=== PATIENT | female | born 1970 | race Caucasian/White ===

== ENCOUNTER → 2017-10-27 | Day surgery (SDC) | payer MEDICARE, OTHER ==
[2017-10-27 11:42] VITALS: RESP 16; BMI 35.9
[2017-10-27 13:18] VITALS: BP 121/78; PULSE 68; TEMP 98.2
--- NOTE | 2017-10-27 13:21 | USB ---
EXAMINATION TYPE: US biopsy breast add'l VAD RT, US biopsy breast VAD RT DATE OF EXAM: 10/27/2017 CLINICAL HISTORY: R92.8, ABN MAMM. Right-sided bloody nipple discharge. TECHNIQUE: Ultrasound guided core biopsy of right breast. COMPARISON: 09/26/2017 FINDINGS: The procedure of ultrasound guided core biopsy was explained to the patient. Benefits, alternatives, and risks were discussed. An informed consent was then obtained. Discussion with the patient of an additional site of biopsy was made prior to the procedure with informed patient consent. Preprocedural timeout was performed. Site A: The patient was placed in supine positioning for imaging and for the procedure. The overlying skin was prepped and draped in usual sterile fashion. 9 cc of lidocaine without epinephrine was used as anesthetic into the skin and subcutaneous tissue up to the 6 mm and adjacent similar-appearing 6 mm mass in the right breast at the 11:30 position. Under ultrasound guidance, a 12-gauge vacuum assisted biopsy gun device was used to obtain 6 core samples of the 2 adjacent masses. Following this, a coil- shaped biopsy marker was left in lesion. Site B: The patient was placed in supine positioning for imaging and for the procedure. The overlying skin was prepped and draped in usual sterile fashion. 9 cc of lidocaine without epinephrine was used as anesthetic into the skin and subcutaneous tissue up to a 0.6 x 0.3 x 0.6 cm hypoechoic mass in the right breast at the 12:00 position. Under ultrasound guidance, a 12-gauge vacuum assisted biopsy gun device was used to obtain 5 core samples. Following this, a wing-shaped biopsy marker was left in lesion. Postprocedural mammogram in the CC and MLO projections demonstrating appropriate placement of the biopsy markers without migration. The patient tolerated the procedure well without any immediate complication. The patient was kept in the radiology department for short stay after the procedure and then discharged home in stable condition. IMPRESSION: Successful, uncomplicated ultrasound guided two site core biopsy of two adjacent masses at the 11:30 position, possibly intraductal papillomas given their appearance and the provided history of bloody nipple discharge, as well as an additional 6 mm mass at the 12:00 position, possibly cystic, within the right breast. Full pathology results to follow. Pathology Results: Benign A. BREAST, RIGHT, SITE A 11:30, CORE BIOPSY: FIBROCYSTIC CHANGES INCLUDING FIBROSIS AND SMALL CYSTS. B. BREAST, RIGHT, 12:00, CORE BIOPSY: FIBROCYSTIC CHANGES INCLUDING CYSTS, APOCRINE METAPLASIA AND FIBROSIS. Recommendation Follow up ultrasound of the right breast in 6 months. KUMAR
--- NOTE | 2017-10-27 13:50 | MM ---
Reason for exam: additional evaluation requested from abnormal screening. Last mammogram was performed 1 month ago. History: Family history of breast cancer in maternal aunt. Took hormonal contraceptives for 2 years beginning at age 14. MG Diagnostic Mammo RT Wo CAD CC and LM view(s) were taken of the right breast. Prior study comparison: September 26, 2017, bilateral MG 3d diag mammo w/cad WINNIE. April 25, 2014, bilateral MG diagnostic mammo w CAD WINNIE. ASSESSMENT: Post procedure mammogram for marker placement RECOMMENDATION: Ultrasound of the right breast in 6 months. PENDING PATHOLOGY RESULTS.
== END ==
LOC: RADUSWWP 10:54
PROVIDERS: ATTEND Surgery
DX: N60.31 Fibrosclerosis of right breast (principal); R92.8 Other abnormal and inconclusive findings on diagnostic imaging of breast; N60.81 Other benign mammary dysplasias of right breast; Z88.6 Allergy status to analgesic agent; Z91.040 Latex allergy status
CPT/HCPCS: 88305; 77065; 19083; 19084; A4648; J2001

== ENCOUNTER → 2018-03-09 | Outpatient (CLI) | payer MEDICARE, OTHER ==
[2018-03-09 14:37] VITALS: BP 109/69; PULSE 72; RESP 15; TEMP 98.1; BMI 40.6
--- NOTE | 2018-03-09 15:20 | P.HPBAR ---
Bariatric H&P - History & Physicial H&P Date: 03/09/18 History & Physicial: Visit/CC: constant acid reflux, beginning to consider RnY Patient initial contact: Initial weight: 125.191 kg Initial weight in pounds: 276.00 Height: 5 ft 1 in Initial BMI: 52.1 Last weight: 205 Current weight: 97.432 kg Current weight in pounds: 214.80 Current BMI: 40.6 [place] body weight (based on NIH guidelines): 47.627 kg Excess body weight loss: 35.7% The patient is a 47 year-old F who presents for Bariatric Assessment. Patient presents today for sleeve follow-up. She's had issues with GERD. She is actually had increased airway of approximately 10 pounds since her last visit. Patient states that since starting her Nexium she has had improvement of her GERD symptoms. Past Medical History Past Medical History: Diabetes Mellitus, Fibromyalgia, GERD/Reflux, Hyperlipidemia, Rheumatoid Arthritis (RA), Seizure Disorder, Sleep Apnea/CPAP/ BIPAP Additional Past Medical History / Comment(s): hiatal hernia History of Any Multi-Drug Resistant Organisms: None Reported Past Surgical History: Bariatric Surgery, Cholecystectomy, Tonsillectomy, Tubal Ligation Additional Past Surgical History / Comment(s): gastric sleeve, cervical fusion, Past Anesthesia/Blood Transfusion Reactions: Family History of Problems w/ Anesthesia, Motion Sickness Additional Past Anesthesia/Blood Transfusion Reaction / Comm: STATES "HAS A HARD TIME COMING OUT OF ANESTHESIA" Smoking Status: Current some day smoker - Past Family History Mother Family Medical History: No Reported History Additional Family Medical History / Comment(s): DIVERTICULITIS Father Family Medical History: Diabetes Mellitus Surgical - Exam Vital Signs Temp Pulse Resp BP 98.1 F 72 15 109/69 03/09/18 14:26 03/09/18 14:26 03/09/18 14:26 03/09/18 14:26 - General well developed, no distress - Abdomen Abdomen: soft, non tender Bariatric Assessment & Plan Plan: GERD. Patient will continue omeprazole therapy. She'll follow-up in 4 weeks. Bariatric Checklist Checklist: Plan: Checklist: EGD: 1. Hiatal hernia: 2. H. Pylori: HgbA1c: Vitamin D: Smoking: Current some day smoker Primary care physician referral: Michelle Berman (in with Dr. Migdalia Good @ [facility]) Psychiatry clearance: Cardiology clearance: Sleep study: Diet journal: VTE risk score: VTE risk level: Rehab needs at discharge:
== END | disposition home or self-care (01) ==
LOC: BARWHC3 14:08
PROVIDERS: ATTEND Surgery
DX: Z09 Encounter for follow-up examination after completed treatment for conditions other than malignant neoplasm (principal); K21.9 Gastro-esophageal reflux disease without esophagitis; F17.200 Nicotine dependence, unspecified, uncomplicated; E11.9 Type 2 diabetes mellitus without complications; M79.7 Fibromyalgia; E78.5 Hyperlipidemia, unspecified; M06.9 Rheumatoid arthritis, unspecified; G40.909 Epilepsy, unspecified, not intractable, without status epilepticus; G47.30 Sleep apnea, unspecified; Z99.89 Dependence on other enabling machines and devices; Z98.84 Bariatric surgery status; Z90.49 Acquired absence of other specified parts of digestive tract
CPT/HCPCS: 99211

== ENCOUNTER → 2018-04-06 | Outpatient (CLI) | payer MEDICARE, OTHER ==
--- NOTE | 2018-04-06 08:46 | FL ---
EXAMINATION TYPE: FL barium swallow DATE OF EXAM: 04/06/2018 LIMITED UGI-ESOPHAGRAM: CLINICAL HISTORY: Gastric sleeve procedure for years ago with persistent epigastric pain and reflux-l kenny symptoms not responding to medication. TECHNIQUE: Limited esophagram is performed utilizing 10 oz of barium. A total of 71 seconds of fluor oscopic time was utilized during procedure. 24 spot images are saved. COMPARISON: Prior swallow study May 13, 2016. FINDINGS: The patient swallowed contrast without difficulty or delay. Long segment postsurgical hernandez ges cervical spine is redemonstrated. There is underlying esophageal dysmotility with dilatation and abnormal secondary and tertiary contractions. There is good flow at diaphragmatic hiatus into proxim al stomach. There is initial mild delay of proximal anastomosis with then good flow through sleeve an d distal anastomosis into duodenal sweep. Patient remains asymptomatic without increased nausea or vo miting. There is no evidence of contrast extravasation to suggest leak. No reflux was observed. There is more generalized pooling of contrast in distal esophagus upon drinking with poor transit into gas tric sleeve. IMPRESSION: No evidence of leak or significant obstruction status post gastric sleeve surgery. Poor transit of contrast into sleeve is felt on basis of underlying moderate to severe esophageal dysmotil ity.
== END | disposition home or self-care (01) ==
LOC: RADFLMAIN 07:56
PROVIDERS: ATTEND Surgery
DX: K22.4 Dyskinesia of esophagus (principal); Z98.84 Bariatric surgery status
CPT/HCPCS: 74220

== ENCOUNTER 2018-05-14 08:03 | Day surgery (SDC) | payer MEDICARE, OTHER ==
[2018-05-11 11:36] VITALS: BMI 41.0
[~2018-05-14 08:03] MED LIST: LACTATED RINGERS 1,000 ML IV SCH; LIDOCAINE 1% 20 ML VIAL (10MG/ML) FOR IV START INTRADERMA PRN; Pre Op ABX Message 1 EACH MISC MISCELLANE ONE
[2018-05-14 08:28] VITALS: RESP 16; TEMP 98.5
[2018-05-14] MEDS ORDERED: MIDAZOLAM 2 MG/2 ML VIAL ONE (08:43)
[2018-05-14] MEDS ORDERED: fentaNYL (PF) 50 MCG/ML 2 ML AMP ONE (08:43)
[2018-05-14] MEDS ORDERED: PROPOFOL 10 MG/ML 20 ML VIAL IV ONE (08:43)
[2018-05-14] MEDS ORDERED: LIDOCAINE 1% INJ 10MG/ML (20 ML MDV) ONE (08:43)
--- NOTE | 2018-05-14 08:48 | P.GSHP ---
History of Present Illness H&P Date: 05/14/18 Chief Complaint: GERD This a 47-year-old female second with of GERD. Patient had a laparoscopic sleeve gastrectomy approximate 4 years ago. Her recent esophagram shows some dysmotility esophagus with a possible small hiatal hernia. Past Medical History Past Medical History: Diabetes Mellitus, Fibromyalgia, GERD/Reflux, Hyperlipidemia, Osteoarthritis (OA), Seizure Disorder, Sleep Apnea/CPAP/BIPAP Additional Past Medical History / Comment(s): LAST SEIZURE APPROX. 3 YEARS AGO. , HIATAL HERNIA,C-PAP MACHINE., BACK AND LEFT HIP PAIN, NERVE PAIN IN LEGS, CONSTIPATION., HX GASTRIC SLEEVE., STATES PRE-CANCEROUS CELLS IN THROAT FROM GERD., STATES SOME PROBLEMS WALKING "MY LEGS ARE LIKE SPAGHETTI- I WALK LIKE I' M DRUNK" History of Any Multi-Drug Resistant Organisms: None Reported Past Surgical History: Back Surgery, Bariatric Surgery, Cholecystectomy, Tonsillectomy, Tubal Ligation Additional Past Surgical History / Comment(s): gastric sleeve ( ? 2013) ., cervical fusion, Past Anesthesia/Blood Transfusion Reactions: No Reported Reaction, Motion Sickness Additional Past Anesthesia/Blood Transfusion Reaction / Comment(s): . Past Psychological History: Bipolar, Depression Smoking Status: Current every day smoker Past Alcohol Use History: None Reported Additional Past Alcohol Use History / Comment(s): STARTED SMOKING 1983, SMOKES 7 CIG PER DAY Past Drug Use History: None Reported - Past Family History Mother Family Medical History: No Reported History Additional Family Medical History / Comment(s): DIVERTICULITIS Father Family Medical History: Diabetes Mellitus Medications and Allergies Home Medications Medication Instructions Recorded Confirmed Type Gabapentin 800 mg PO QID 09/04/15 05/14/18 History Sertraline [Zoloft] 100 mg PO BID 09/04/15 05/14/18 History traMADol HCL [Tramadol HCl] 50 mg PO Q4HR PRN 04/19/16 05/14/18 History Esomeprazole Magnesium [NexIUM] 40 mg PO DAILY 05/06/16 05/14/18 History Ergocalciferol [Vitamin D2] 50,000 unit PO Q7D 06/11/16 05/14/18 History Sucralfate [Carafate] 1 gm PO TID 06/11/16 05/14/18 History Acetaminophen [Tylenol Extra 500 mg PO DAILY PRN 05/11/18 05/14/18 History Strength] Insulin Degludec [Tresiba 100 unit SQ HS 05/11/18 05/14/18 History Flextouch U-100] Omeprazole [PriLOSEC] 20 mg PO DAILY 05/11/18 05/14/18 History Allergies Allergy/AdvReac Type Severity Reaction Status Date / Time carbamazepine [From Tegretol] Allergy Rash/Hives Verified 05/14/18 08:31 latex Allergy Rash/Hives Verified 05/14/18 08:31 Surgical - Exam Vital Signs Temp Pulse Resp BP Pulse Ox 98.5 F 70 16 107/67 96 05/14/18 08:25 05/14/18 08:25 05/14/18 08:25 05/14/18 08:25 05/14/18 08:25 - General well developed, no distress - Eyes PERRL - ENT normal pinna - Neck no masses - Respiratory normal expansion - Cardiovascular Rhythm: regular - Abdomen Abdomen: soft, non tender Assessment and Plan Assessment: GERD. We'll perform EGD.
--- NOTE | 2018-05-14 08:56 | P.OP ---
Date of Procedure: 05/14/18 Preoperative Diagnosis: GERD Morbid obesity BMI 41 Postoperative Diagnosis: Antral gastritis Small hiatal hernia Esophagitis Gastric sleeve without obstruction Procedure(s) Performed: EGD Anesthesia: MAC Surgeon: Osmany Roy Pathology: other (Antrum, esophagus) Condition: stable Disposition: PACU Description of Procedure: The patient's placed on the endoscopy table in the lateral position. She received IV sedation. The gastroscope placed oropharynx passed in the esophagus and into the stomach. Scope was then placed through the pylorus. First and second portion of the duodenum appeared normal. Scope was then brought back the antrum and this appeared mildly inflamed. A biopsies performed. Scope summer back to the stomach. The patient appears gastric sleeve this without EVIDENCE of obstruction. At the level of GE junction there was a small hiatal hernia. The distal esophagus appeared mildly inflamed a biopsies performed. The proximal esophagus appeared normal. Scope was withdrawn for patient.
[2018-05-14 09:13] LABS: Glucose,Whole Blood 130 mg/dL (75-99)
[2018-05-14 09:17] VITALS: BP 121/82; PULSE 70
== END 2018-05-14 09:32 | disposition home or self-care (01) ==
LOC: ORWHC2ENDO 08:03
PROVIDERS: ATTEND Surgery
DX: K29.50 Unspecified chronic gastritis without bleeding (principal); K44.9 Diaphragmatic hernia without obstruction or gangrene; E11.9 Type 2 diabetes mellitus without complications; K21.0 Gastro-esophageal reflux disease with esophagitis; E66.01 Morbid (severe) obesity due to excess calories; G47.33 Obstructive sleep apnea (adult) (pediatric); M79.7 Fibromyalgia; E78.5 Hyperlipidemia, unspecified; M19.90 Unspecified osteoarthritis, unspecified site; G40.909 Epilepsy, unspecified, not intractable, without status epilepticus; F31.9 Bipolar disorder, unspecified; F17.210 Nicotine dependence, cigarettes, uncomplicated; Z79.4 Long term (current) use of insulin; Z79.899 Other long term (current) drug therapy; Z88.8 Allergy status to other drugs, medicaments and biological substances; Z90.3 Acquired absence of stomach [part of]; Z99.89 Dependence on other enabling machines and devices; Z90.49 Acquired absence of other specified parts of digestive tract; Z68.41 Body mass index [BMI] 40.0-44.9, adult; Z91.040 Latex allergy status
CPT/HCPCS: 88305; 43239; J2250; J2001; J3010; J2704

== ENCOUNTER → 2018-09-18 | Outpatient (CLI) | payer MEDICARE, OTHER ==
--- NOTE | 2018-09-18 15:13 | CT ---
EXAMINATION TYPE: CT abdomen pelvis wo con DATE OF EXAM: 09/18/2018 HISTORY: GERD, Ventral hernia CT DLP: 1158.6 mGycm. Automated Exposure Control for Dose Reduction was Utilized. TECHNIQUE: CT scan of the abdomen and pelvis is performed with oral but without IV contrast. COMPARISON: NONE FINDINGS: Within the limitations of a non-contrast study, the following observations are made. LUNG BASES: No significant abnormality is appreciated. LIVER/GB: Cholecystectomy clips are present. PANCREAS: No significant abnormality is seen. SPLEEN: No significant abnormality is seen. ADRENALS: No significant abnormality is seen. KIDNEYS: No renal calculi or hydronephrosis is seen bilaterally. BOWEL: Surgical changes from hiatal hernia repair surgery are seen with sutures near diaphragmatic hi atus. There is recurrent small hiatal hernia noted above this. Oral contrast extends into cecum. Ther e is no suspicious small or large bowel dilatation GENITAL ORGANS: Heterogeneous anteverted uterus is seen with lobulated peripheral margin suggesting s ubserosal fibroids.. Both ovaries are seen and not suspiciously enlarged. Scattered pelvic phlebolith s are seen. LYMPH NODES: No greater than 1cm abdominal or pelvic lymph nodes are appreciated. OSSEOUS STRUCTURES: No significant abnormality is seen. OTHER: Tiny fat-containing umbilical hernia. Additional focal right ventral wall hernia above the umb ilicus axial image 35 with narrow neck containing fat may be on pass of prior incision port for lapar oscopic surgery as there is adjacent scar tissue felt present. IMPRESSION: Small recurrent hiatal hernia. Tiny fat-containing umbilical hernia. Small fat-containing near neck ventral wall hernia likely at site of prior laparoscopic port.
== END | disposition home or self-care (01) ==
LOC: RADCTMAIN 13:12
PROVIDERS: ATTEND Surgery Plastic and Reconstructive Surgery
DX: K43.9 Ventral hernia without obstruction or gangrene (principal); K44.9 Diaphragmatic hernia without obstruction or gangrene; K21.9 Gastro-esophageal reflux disease without esophagitis; Z91.040 Latex allergy status; Z88.8 Allergy status to other drugs, medicaments and biological substances
CPT/HCPCS: 74176

== ENCOUNTER 2018-10-07 07:50 | Day surgery (SDC) | payer MEDICARE, OTHER ==
[2018-10-06 09:15] VITALS: BMI 42.2
[~2018-10-07 07:50] MED LIST changes: +DEXAMETHASONE SOD PHOSPHATE 10 MG/ML 1 ML VIAL IV ONE; +HYDROmorphone 0.5 MG/0.5 ML SYRINGE IVP PRN; +ONDANSETRON 4 MG/2 ML VIAL IVP ONE; -Pre Op ABX Message 1 EACH MISC MISCELLANE ONE; +SCOPOLAMINE 1.5MG/72HR PATCH TRANSDERM ONE
[2018-10-07 08:17] VITALS: TEMP 97.8
[2018-10-07 08:28] LABS: Glucose,Whole Blood 93 mg/dL (75-99)
[2018-10-07] MEDS ORDERED: LACTATED RINGERS 1,000 ML IV ONE (08:32)
[2018-10-07] MEDS ORDERED: PROPOFOL 10 MG/ML 20 ML VIAL IV ONE (08:40)
[2018-10-07] MEDS ORDERED: LIDOCAINE 1% INJ 10MG/ML (20 ML MDV) ONE (08:40)
--- NOTE | 2018-10-07 08:50 | P.PCN ---
Date of Procedure: 10/07/18 Description of Procedure: PREOPERATIVE DIAGNOSIS: Status post sleeve gastrectomy. Gastroesophageal reflux disease. Epigastric abdominal pain. POSTOPERATIVE DIAGNOSIS: Status post sleeve gastrectomy. Gastroesophageal reflux disease. Epigastric abdominal pain. Erosive esophagitis, chronic. Diaphragmatic hiatal hernia without obstruction. Chronic superficial gastritis. OPERATION: Esophagogastroduodenoscopy with cold forceps biopsies along the antrum. SURGEON: Maira Rayo MD ANESTHESIA: MAC. INDICATIONS: The patient is a 48-year-old female who presents with a history of sleeve gastrectomy with abdominal pain. Benefits and risks of the procedure were described. Informed consent was obtained. DESCRIPTION: The patient was brought into the endoscopy suite and laid in the left lateral decubitus position. An Olympus gastroscope was passed along the posterior oropharynx down to the distal esophagus where the squamocolumnar junction was at 34 centimeters from the incisors remarkable for chronic erosive esophagitis, LA grade C without ulceration. The stomach was entered where she had a 6-cm hiatal hernia with a diaphragmatic hiatus found at 40 cm. Moderate distortion of the gastric sleeve gastrectomy and angularis incisura with adequate reservoir was found. Chronic gastritis albeit mild was found along the antrum with cold biopsies obtained. The first through third portion of the duodenum was examined and unremarkable. The stomach was desufflated. The patient tolerated the procedure well. FINDINGS: No acute ulceration found along her sleeve. Corkscrewing of sleeve gastrectomy. Squamocolumnar junction at 34 cm from the incisors. Diaphragmatic hiatus at 40 cm. Hiatal hernia 6 cm, fixed. LA grade C erosive esophagitis. No active duodenitis. Severe gastroesophageal reflux disease Findings of moderate gastritis. Moderate distortion of gastric sleeve and angularis incisura with adequate reservoir. Hill grade unobtainable secondary to sleeve gastrectomy RECOMMENDATIONS: Upper endoscopy as needed. May benefit from antireflux operation. Recommend revision to gastric bypass was severe reflux disease.
--- NOTE | 2018-10-07 08:51 | P.GSHP ---
History of Present Illness H&P Date: 10/07/18 CHIEF COMPLAINT: GERD HISTORY OF PRESENT ILLNESS: The patient is a 48-year-old female who presents reports gastroesophageal reflux disease. Upper endoscopy was offered for further evaluation and management. PAST MEDICAL HISTORY: Please see list. PAST SURGICAL HISTORY: Please see list. MEDICATIONS: Please see list. ALLERGIES: Please see list. SOCIAL HISTORY: No illicit drug use FAMILY HISTORY: No reports of Crohn disease or ulcerative colitis. REVIEW OF ORGAN SYSTEMS: CONSTITUTIONAL: No reports of fevers or chills. GI: Denies any blood in stools or constipation. PHYSICAL EXAM: VITAL SIGNS: Stable GENERAL: Well-developed and pleasant in no acute distress. HEENT: No scleral icterus. Extraocular movements grossly intact. Moist buccal mucosa. NECK: Supple without lymphadenopathy. CHEST: Unlabored respirations. Equal bilateral excursions. CARDIOVASCULAR: Regular rate and rhythm. Distal 2+ pulses. ABDOMEN: Soft, nondistended. MUSCULOSKELETAL: No clubbing, cyanosis, or edema. ASSESSMENT: 1. Gastroesophageal reflux disease PLAN: 1. Recommend proceeding with an upper endoscopy Past Medical History Past Medical History: Diabetes Mellitus, Fibromyalgia, GERD/Reflux, Hyperlipidemia, Osteoarthritis (OA), Seizure Disorder, Sleep Apnea/CPAP/BIPAP Additional Past Medical History / Comment(s): LAST SEIZURE APPROX. 3 YEARS AGO. , HIATAL HERNIA,C-PAP MACHINE., BACK AND LEFT HIP PAIN, NERVE PAIN IN LEGS, CONSTIPATION., STATES PRE-CANCEROUS CELLS IN THROAT FROM GERD., STATES SOME PROBLEMS WALKING "MY LEGS ARE LIKE SPAGHETTI- I WALK LIKE I'M DRUNK" History of Any Multi-Drug Resistant Organisms: None Reported Past Surgical History: Back Surgery, Bariatric Surgery, Cholecystectomy, Tonsillectomy, Tubal Ligation Additional Past Surgical History / Comment(s): gastric sleeve ,cervical fusion Past Anesthesia/Blood Transfusion Reactions: No Reported Reaction, Motion Sickness Additional Past Anesthesia/Blood Transfusion Reaction / Comment(s): . Smoking Status: Current every day smoker - Past Family History Mother Family Medical History: No Reported History Additional Family Medical History / Comment(s): DIVERTICULITIS Father Family Medical History: Diabetes Mellitus Medications and Allergies Home Medications Medication Instructions Recorded Confirmed Type Gabapentin 800 mg PO QID 09/04/15 10/07/18 History Sertraline [Zoloft] 100 mg PO BID 09/04/15 10/07/18 History traMADol HCL [Tramadol HCl] 50 mg PO Q4HR PRN 04/19/16 10/07/18 History Esomeprazole Magnesium [NexIUM] 40 mg PO DAILY 05/06/16 10/07/18 History Ergocalciferol [Vitamin D2] 50,000 unit PO Q7D 06/11/16 10/07/18 History Sucralfate [Carafate] 1 gm PO TID 06/11/16 10/07/18 History Acetaminophen [Tylenol Extra 500 mg PO DAILY PRN 05/11/18 10/07/18 History Strength] Insulin Degludec [Tresiba 100 unit SQ HS 05/11/18 10/07/18 History Flextouch U-100] Omeprazole [PriLOSEC] 20 mg PO DAILY 05/11/18 10/07/18 History Allergies Allergy/AdvReac Type Severity Reaction Status Date / Time carbamazepine [From Tegretol] Allergy Rash/Hives Verified 10/06/18 09:06 latex Allergy Rash/Hives Verified 10/06/18 09:06 Surgical - Exam Vital Signs Temp Pulse Resp BP Pulse Ox 97.8 F 71 20 118/72 96 10/07/18 08:15 10/07/18 08:15 10/07/18 08:15 10/07/18 08:15 10/07/18 08:15
[2018-10-07 09:16] VITALS: BP 132/77; PULSE 56; RESP 18
== END 2018-10-07 09:38 | disposition home or self-care (01) ==
LOC: ORWHC2ENDO 07:50
PROVIDERS: ATTEND Surgery Plastic and Reconstructive Surgery
DX: K29.30 Chronic superficial gastritis without bleeding (principal); K21.9 Gastro-esophageal reflux disease without esophagitis; E11.9 Type 2 diabetes mellitus without complications; M79.7 Fibromyalgia; E78.5 Hyperlipidemia, unspecified; M19.90 Unspecified osteoarthritis, unspecified site; G40.909 Epilepsy, unspecified, not intractable, without status epilepticus; F17.200 Nicotine dependence, unspecified, uncomplicated; K22.10 Ulcer of esophagus without bleeding; K44.9 Diaphragmatic hernia without obstruction or gangrene; F31.9 Bipolar disorder, unspecified; G47.33 Obstructive sleep apnea (adult) (pediatric); Z99.89 Dependence on other enabling machines and devices; Z98.84 Bariatric surgery status; Z79.899 Other long term (current) drug therapy; Z79.4 Long term (current) use of insulin; Z88.8 Allergy status to other drugs, medicaments and biological substances; Z91.040 Latex allergy status
CPT/HCPCS: 88305; 43239; J2001; J2704

== ENCOUNTER → 2019-02-03 | Outpatient (CLI) | payer MEDICARE, OTHER ==
[2019-02-03 15:27] LABS: HGB 13.3 gm/dL (11.4-16.0); MCH 28.4 pg (25.0-35.0); MCHC 32.5 g/dL (31.0-37.0); MCV 87.4 fL (80.0-100.0); Mean Platelet Volume 7.2; Platelet Count 387 k/uL (150-450); RBC 4.69 m/uL (3.80-5.40); RDW 14.9 % (11.5-15.5); WBC 16.4 k/uL (3.8-10.6)
[2019-02-03 15:38] LABS: Blood Urea Nitrogen 19 mg/dL (7-17); Potassium 4.7 mmol/L (3.5-5.1)
== END ==
LOC: LABPAT 14:48
PROVIDERS: ATTEND Surgery Plastic and Reconstructive Surgery
DX: Z01.812 Encounter for preprocedural laboratory examination (principal); K44.9 Diaphragmatic hernia without obstruction or gangrene; Z79.899 Other long term (current) drug therapy; Z79.4 Long term (current) use of insulin
CPT/HCPCS: 36415; 82565; 84132; 84520; 85027

== ENCOUNTER → 2019-03-19 | Outpatient (CLI) | payer MEDICARE, OTHER ==
[2019-03-19 15:23] LABS: Blood Urea Nitrogen 13 mg/dL (7-17); Potassium 3.9 mmol/L (3.5-5.1)
[2019-03-19 15:26] LABS: HCT 38.8 % (34.0-46.0); HGB 12.7 gm/dL (11.4-16.0); MCH 28.8 pg (25.0-35.0); MCHC 32.7 g/dL (31.0-37.0); Platelet Count 369 k/uL (150-450); RBC 4.41 m/uL (3.80-5.40); WBC 10.6 k/uL (3.8-10.6)
== END | disposition home or self-care (01) ==
LOC: LABPAT 14:50
PROVIDERS: ATTEND Surgery Plastic and Reconstructive Surgery
DX: Z01.812 Encounter for preprocedural laboratory examination (principal); K44.9 Diaphragmatic hernia without obstruction or gangrene; Z79.4 Long term (current) use of insulin; Z79.899 Other long term (current) drug therapy
CPT/HCPCS: 36415; 82565; 84132; 84520; 85027

== ENCOUNTER 2019-03-25 17:49 | Day surgery (SDC) | payer MEDICARE, OTHER ==
[2019-03-22 10:25] VITALS: BMI 38.0
--- NOTE | 2019-03-25 07:14 | P.GSHP ---
History of Present Illness H&P Date: 03/25/19 CHIEF COMPLAINT: Paraesophageal hiatal hernia with gastroesophageal reflux disease. HISTORY OF PRESENT ILLNESS: The patient is a 48-year-old female who presents with paraesophageal hiatal hernia. She has completed an esophageal manometry including upper endoscopy workup. Now she presents for surgical intervention. PAST MEDICAL HISTORY: Please see list. PAST SURGICAL HISTORY: Please see list. MEDICATIONS: Please see list. ALLERGIES: Please see list. SOCIAL HISTORY: No illicit drug use FAMILY HISTORY: No reports of Crohn disease or ulcerative colitis. REVIEW OF ORGAN SYSTEMS: CONSTITUTIONAL: No reports of fevers or chills. GI: Denies any blood in stools or constipation. PHYSICAL EXAM: VITAL SIGNS: Stable GENERAL: Well-developed pleasant and in no acute distress. HEENT: No scleral icterus. Extraocular movements grossly intact. Moist buccal mucosa. NECK: Supple without lymphadenopathy. CHEST: Unlabored respirations. Equal bilateral excursions. CARDIOVASCULAR: Regular rate and rhythm. Distal 2+ pulses. ABDOMEN: Soft, nondistended. No peritoneal signs. MUSCULOSKELETAL: No clubbing, cyanosis, or edema. SKIN: Well-perfused. Good skin turgor. MANOMETRY: Shows no evidence of achalasia or scleroderma. ASSESSMENT: 1. Diaphragmatic paraesophageal hiatal hernia with severe gastroesophageal reflux disease. PLAN: 1. Recommend proceeding with a robotic paraesophageal hiatal hernia with possible mesh. 2. Benefits and risks of surgical intervention was discussed including possibility of open technique. 3. Inpatient hospitalization recommended of 2 nights 4. DVT prophylaxis. 5. Antibiotic prophylaxis. 6. She has also completed a very low caloric high-protein diet to address underlying hepatomegaly. Past Medical History Past Medical History: Diabetes Mellitus, Fibromyalgia, GERD/Reflux, Hyperlipidemia, Osteoarthritis (OA), Seizure Disorder, Sleep Apnea/CPAP/BIPAP Additional Past Medical History / Comment(s): LAST SEIZURE OVER 3 YEARS AGO., HIATAL HERNIA, DDD ,NO LONGER USING C-PAP MACHINE., BACK AND LEFT HIP PAIN, NERVE PAIN IN LEGS, CONSTIPATION., HX GASTRIC SLEEVE., STATES PRE-CANCEROUS CELLS IN THROAT FROM GERD., STATES PROBLEMS WALKING "MY LEGS ARE LIKE SPAGHETTI- I WALK LIKE I'M DRUNK",maru legs neuropathy. History of Any Multi-Drug Resistant Organisms: None Reported Past Surgical History: Back Surgery, Bariatric Surgery, Cholecystectomy, Tonsillectomy, Tubal Ligation Additional Past Surgical History / Comment(s): gastric sleeve ( ? 2013 DR CHEN) ., cervical fusion, Past Anesthesia/Blood Transfusion Reactions: No Reported Reaction, Motion Sickness Additional Past Anesthesia/Blood Transfusion Reaction / Comment(s): has a hard t ermelinda sometimes waking up with anesthesia, no hx blood transfusion Past Psychological History: Bipolar, Depression Smoking Status: Current every day smoker Past Alcohol Use History: None Reported Additional Past Alcohol Use History / Comment(s): STARTED SMOKING 1983, SMOKES 6 CIG PER DAY (PAST HX OF 1PPD) Past Drug Use History: None Reported Additional Drug Use History / Comment(s): . - Past Family History Mother Family Medical History: No Reported History Additional Family Medical History / Comment(s): DIVERTICULITIS Father Family Medical History: Diabetes Mellitus Medications and Allergies Home Medications Medication Instructions Recorded Confirmed Type Gabapentin 800 mg PO QID PRN 09/04/15 03/22/19 History Sertraline [Zoloft] 100 mg PO BID 09/04/15 03/22/19 History Esomeprazole Magnesium [NexIUM] 40 mg PO Q2D 05/06/16 03/22/19 History Ergocalciferol [Vitamin D2] 50,000 unit PO Q7D 06/11/16 03/22/19 History Insulin Degludec [Tresiba 80 unit SQ HS 05/11/18 03/22/19 History Flextouch U-100] Omeprazole 40 mg PO Q2D 01/29/19 03/22/19 History traMADol HCL [Ultram] 50 mg PO Q6HR PRN 03/22/19 03/22/19 History Allergies Allergy/AdvReac Type Severity Reaction Status Date / Time carbamazepine [From Tegretol] Allergy Rash/Hives Verified 03/22/19 09:57 latex Allergy Rash/Hives Verified 03/22/19 09:57
[2019-03-25 12:53] LABS: Glucose,Whole Blood 85 mg/dL (75-99)
[2019-03-25] MEDS: LACTATED RINGERS 1,000 ML IV SCH ×2 (13:00→14:08)
[2019-03-25] MEDS: DEXAMETHASONE SOD PHOSPHATE 10 MG/ML 1 ML VIAL IV ONE ×2 (13:08→19:01)
[2019-03-25] MEDS: ONDANSETRON 4 MG/2 ML VIAL IVP ONE ×2 (13:08→19:40)
[2019-03-25] MEDS: PANTOPRAZOLE 40 MG/10 ML VIAL IV STA ×2 (13:11→19:05)
[2019-03-25] MEDS: SCOPOLAMINE 1.5MG/72HR PATCH TRANSDERM ONE ×2 (13:15→19:04)
[2019-03-25] MEDS: CHLORHEXIDINE GLUCONATE 15 ML CUP MUCOUS MEM ONE ×2 (14:07→19:04)
[~2019-03-25 17:49] MED LIST changes: +BUPIVACAIN-EPI 0.25%-1:200,000 30 ML VIAL SQ ONE; -DEXAMETHASONE SOD PHOSPHATE 10 MG/ML 1 ML VIAL IV ONE; +ENOXAPARIN 40 MG/0.4 ML SYRINGE SQ STA; +GLYCOPYRROLATE 0.2 MG/ML 2 ML VIAL ONE; +HEPARIN SODIUM,PORCINE 5,000 UNIT/ML 1 ML VIAL SQ ONE; +HYDROcodone/APAP 15 ML SOLUTION PO PRN; +HYDROmorphone (PF) 1 MG/ML ONE; +KETOROLAC 30 MG/ML 1 ML VIAL ONE; +LACTATED RINGERS 1,000 ML IV ONE; -LACTATED RINGERS 1,000 ML IV SCH; +LIDOCAINE 1% INJ 10MG/ML (20 ML MDV) ONE; +MIDAZOLAM 2 MG/2 ML VIAL IV PRN; +MIDAZOLAM 2 MG/2 ML VIAL ONE; +NALOXONE 0.4 MG/ML 1 ML VIAL IV PRN; +NEOSTIGMINE 1 MG/ML 10 ML VIAL ONE; -ONDANSETRON 4 MG/2 ML VIAL IVP ONE; +PHENYLEPHRINE-0.9% NACL SYG 1 MG/10 ML SYRINGE ONE; +PROPOFOL 10 MG/ML 20 ML VIAL IV ONE; +ROCURONIUM BROMIDE 10 MG/ML 10 ML VIAL IV ONE; -SCOPOLAMINE 1.5MG/72HR PATCH TRANSDERM ONE; +SUCCINYLCHOLINE CHLORIDE 100 MG/5 ML SYR IV ONE; +ceFAZolin IN SWFI 2 GM/20 ML SYRINGE IVP ONE; +diphenhydrAMINE 50 MG/ML 1 ML VIAL IVP PRN; +fentaNYL (PF) 50 MCG/ML 2 ML AMP ONE
[2019-03-25 17:57] LABS: Glucose,Whole Blood 162 mg/dL (75-99)
[2019-03-25] MEDS ORDERED: INSULIN ASPART (NovoLOG) 100 UNIT/ML VIAL SQ ONE (18:02)
[2019-03-25] MEDS ORDERED: ONDANSETRON 4 MG/2 ML VIAL IVP ONE (18:07)
--- NOTE | 2019-03-25 18:08 | P.OP ---
Date of Procedure: 03/25/19 Description of Procedure: SURGEON: ISELA ASHTON MD PREOPERATIVE DIAGNOSES: 1. Gastroesophageal reflux disease, severe with erosive esophagitis 2. Paraesophageal hiatal hernia, midline. 3. Morbid obesity due to excess calories, BMI of 38.1 4. History of sleeve gastrectomy 5. Epigastric abdominal pain. 6. Diabetes type 2, insulin-dependent 7. Fibromyalgia 8. Bipolar disorder 9. Diabetic neuropathy 10. Anxiety disorder generalized 11. Depressive disorder 12. Seizure disorder. POSTOPERATIVE DIAGNOSES: 1. Gastroesophageal reflux disease, severe with erosive esophagitis 2. Paraesophageal hiatal hernia, midline. 3. Morbid obesity due to excess calories, BMI of 38.1 4. History of sleeve gastrectomy 5. Epigastric abdominal pain. 6. Diabetes type 2, insulin-dependent 7. Fibromyalgia 8. Bipolar disorder 9. Diabetic neuropathy 10. Anxiety disorder generalized 11. Depressive disorder 12. Seizure disorder. 13. Complications from gastrectomy 14. Hepatomegaly OPERATION: 1. Robotic-assisted da Pricila Xi laparoscopic reduction and repair of incarcerated paraesophageal hiatal hernia, 6 x 4 cm, with [place] Biopatch A 8 x 8 cm. 2. Robotic-assisted da Pricila Xi laparoscopic extensive lysis of adhesions over 1 hour 3. Intraoperative esophagogastroscopy ANESTHESIA: General with local anesthetic. ESTIMATED BLOOD LOSS: 20 mL Pathology: None COMPLICATIONS: None. FINDINGS: 1. Hepatomegaly 2. Dense adhesions of anterior surface entire sleeve gastrectomy to left lobe of liver 3. Incarcerated upper pole of the stomach within the mediastinum with moderate dissection performed with resection of mediastinal hernia sac, type III paraesophageal hiatal hernia 4. 6 cm paraesophageal incarcerated diaphragmatic hiatal hernia with moderate dissection into the mediastinum. 5. [place] Biopatch A onlay mesh placed. 6. Intra-abdominal esophageal length over 2 cm obtained 7. Severe intra-abdominal peritoneal adhesions of greater omentum and lesser omentum to abdominal wall including sleeve gastrectomy adherent to the undersurface of the liver adding additional complexity to the case over 1 hour 30 minutes 8. Severe scarring of sleeve gastrectomy with distortion and stenosis at angularis incisura creating functional obstruction INDICATIONS: The patient is a 48-year-old female who presents with epigastric abdominal pain, history of sleeve gastrectomy and gastroesophageal reflux recalcitrant to medical therapy with a symptomatic diaphragmatic hiatal hernia. Preoperative workup including upper endoscopy demonstrated hiatal hernia with erosive esophagitis. Given the severity of her symptoms, she had elected for surgical intervention. Benefits and risks including bleeding, infection, recurrence, dysphagia, injury to the lung, need for further surgery was described at length. Informed consent was obtained. DESCRIPTION: The patient was brought into the operating room and placed in supine position. Preoperatively she had received Lovenox subcutaneously for DVT prophylaxis. After general induction, the abdomen was prepped and draped in standard sterile fashion. The patient had previously voided prior to coming to the operating room. Ioban draping was placed along the abdomen. A timeout protocol was confirmed with the surgical team, for which the patient's name, procedure to be performed including DVT prophylaxis with bilateral SCDs, and preoperative antibiotics were also confirmed. A robotic da Pricila Xi system was prepped and primed. At 15 cm from the xiphoid to just below the umbilicus, proposed port sites were marked with indelible marker along the left axillary line, left mid-clavicular line with each ports were marked 10 cm from each other. A 5 mm 0 degrees laparoscopic trocar entry was performed along the left upper quadrant. The abdomen was insufflated to 15 mmHg pressure was tolerated well. Diagnostic laparoscopy demonstrated no injury to bowel, viscera. Severe peritoneal adhesions completely obscuring the sleeve gastrectomy was found along the epigastrium and midline. Next, one 8 mm robotic port was placed along the right upper abdomen. An 8-mm port was were placed along the left lateral abdominal wall. The camera 8-mm port was maintained along the epigastrium. Another 12 mm port was placed along the left upper abdominal wall after exchanging the 5 mm port. Please note that the ports were placed at least 20 cm away from the target anatomy. Care was taken to check that each robotic arm were safely away from collision with the bed or the patient. A medium sized Cindy liver tractor was placed initially at the subxiphoid however repositioned 4 cm distally to allow for placement underneath the liver after mobilization of the stomach. The patient was repositioned in reverse Trendelenburg position at 16-degrees after lowering the bed. The robot was docked above the left side of the patient. Using a grasper for arm 3, a grasper for arm 1, including vessel sealer for arm 2, the robotic system was docked and primed as described. Instruments were interchanged by the hearing and speech assistant. I had sat at the console. Initial attention was brought to the severe peritoneal adhesions involving the greater omentum to the anterior abdominal wall of the epigastrium including midline and right including left upper quadrant. Using combination blunt dissection including vessel sealer for sharp dissection, extensive lysis of adhesions over 1 hour was performed. The sleeve was completely adherent to the undersurface of the left lobe of the liver requiring meticulous dissection using a vessel sealer without any gastrotomy. No bleeding had occurred along the liver dissection away from the sleeve gastrectomy. Dissection was carried to the hiatus circumferentially using vessel sealer including blunt dissection. The remnant gastrohepatic ligament was cleaved using a vessel sealer. Next, the phrenoesophageal ligament was mobilized and the distal esophagus was mobilized circumferentially. An incarcerated hernia sac was found into the mediastinum. As a result, deep dissection well into the mediastinum was needed to free the proximal sleeve gastrectomy including distal esophagus consistent with a type III hiatal hernia. The left and right crura was identified. Significant mobilization of the distal to mid esophagus into the mediastinum was performed. Circumferentially, the hernia sac was excised and brought into the abdominal cavity. Care was taken to avoid any gastrotomy to the incarcerated upper pole of the stomach. The measured defect was measured with a ruler consistent with 6 cm axial length and 4 cm in width. After extensive dissection, the distal eso phagus at least 2 cm was brought into the abdominal cavity. Once the hiatus and crura was dissected, 2-0 VLOC suture was placed as a running suture to re-approximate the diaphragmatic hiatus posteriorly. To buttress the repair, a [place] Biopatch A was prepared along the back table and cut in a gamboa-hole fashion as to reinforce the repair as an underlay. The mesh was resized posteriorly placed along the crural repair and tagged using 2-0 VLOC. I went to the head of the bed to perform intraoperative esophagogastroduodenoscopy. An Olympus gastroscope was passed through posterior oropharynx, where the squamocolumnar junction was confirmed distal to the hiatus. The stomach was entered. A confirmed pre-existing gastric stenosis was found at the angularis incisura. The stomach had been desufflated. No evidence of leaks were found or mucosal defects of the esophagus or stomach. This concluded the endoscopic portion of the case. The robot was undocked from the patient. I re-scrubbed into the case. All instruments and pneumoperitoneum were evacuated from the abdominal cavity. The incisions were cleansed with dilute hydrogen peroxide with saline solution. Incisions were reapproximated using 4-0 Monocryl in an interrupted subcuticular fashion. The 12-mm port site fascial defect was less than 8 mm in size. Exofin was applied to the skin. Local anesthetic was infiltrated in all wounds for postop analgesia. Multiple intra-abdominal films were obtained. At the end of the procedure, needle, sponge, and instrument count was verified correct by the surgical clinical reviewer. The patient had tolerated the procedure well and was taken to the postanesthesia unit in stable condition. Intraoperative films were reviewed with the patient's family who were pleased with the level of care. COMPLEXITY: Increased complexity of the case secondary to severe peritoneal adhesions from prior history of sleeve gastrectomy. Meticulous dissection of sleeve gastrectomy from liver bed also performed. Extensive lysis of adhesions over 1 hour performed including separate dissection into mediastinum to address moderate incarcerated paraesophageal hiatal hernia, type III
[2019-03-25] MEDS: ONDANSETRON 4 MG/2 ML VIAL IVP SCH (19:06)
[2019-03-25] MEDS: ALBUTEROL NEBULIZED 2.5 MG/3 ML INHALATION SCH (19:27)
[2019-03-25] MEDS: HYDROmorphone 1 MG/ML 1 ML SYRINGE IVP PRN (20:22)
[2019-03-25] MEDS: HYOSCYAMINE ORAL DROPS 1.875 MG/15 ML BOTTLE PO SCH (20:24)
[2019-03-25] MEDS: SIMETHICONE 40 MG/0.6 ML DROPS 2,000 MG/30 ML BOTTLE PO SCH (20:25)
[2019-03-25 20:54] LABS: Glucose,Whole Blood 166 mg/dL (75-99)
[2019-03-25] MEDS: INSULIN ASPART (NovoLOG) 100 UNIT/ML VIAL SQ SCH (20:56)
[2019-03-25] MEDS: 0.9% NACL WITH KCL 20 MEQ/L 1,000 ML IV SCH (23:59)
[2019-03-26] MEDS: ceFAZolin IN SWFI 2 GM/20 ML SYRINGE IVP SCH ×2 (00:05→09:06)
[2019-03-26] MEDS: SIMETHICONE 40 MG/0.6 ML DROPS 2,000 MG/30 ML BOTTLE PO SCH ×3 (00:05→12:51)
[2019-03-26] MEDS: ONDANSETRON 4 MG/2 ML VIAL IVP SCH ×3 (00:05→12:42)
[2019-03-26] MEDS: HYOSCYAMINE ORAL DROPS 1.875 MG/15 ML BOTTLE PO SCH ×3 (00:05→12:50)
[2019-03-26] MEDS: HYDROmorphone 1 MG/ML 1 ML SYRINGE IVP PRN ×2 (00:05→06:54)
[2019-03-26] MEDS: 0.9% NACL WITH KCL 20 MEQ/L 1,000 ML IV SCH (00:06)
[2019-03-26] MEDS: LACTATED RINGERS 1,000 ML IV SCH (00:06)
[2019-03-26] MEDS: ALBUTEROL NEBULIZED 2.5 MG/3 ML INHALATION SCH ×2 (05:44→10:39)
[2019-03-26 06:33] LABS: Glucose,Whole Blood 115 mg/dL (75-99)
[2019-03-26] MEDS: INSULIN ASPART (NovoLOG) 100 UNIT/ML VIAL SQ SCH ×2 (06:49→12:52)
[2019-03-26] MEDS ORDERED: 1: MVI, ADULT NO.4 WITH VIT K 10 ML, THIAMINE 100 MG, FOLIC ACID 1 MG, POTASSIUM CHLORID IV SCH ×6 (08:00)
[2019-03-26] MEDS ORDERED: ENOXAPARIN 40 MG/0.4 ML SYRINGE SQ SCH (09:00)
[2019-03-26] MEDS ORDERED: PANTOPRAZOLE 40 MG/10 ML VIAL IV SCH (09:00)
--- NOTE | 2019-03-26 09:28 | FL ---
EXAMINATION TYPE: FL UGI DATE OF EXAM: 03/26/2019 COMPARISON: Previous exam 04/06/2018 HISTORY: Postop hiatal hernia repair TECHNIQUE: A single/double contrast UGI study is performed. 2 minutes fluoroscopy time, 10 intraoper ative images obtained. FINDINGS: Patient was given 80 cc Isovue 370 to drink. There is hesitancy of contrast material across the surgical bed with some reflux from the level of the distal esophagus into the thoracic esophagus . There is a pouch present at the level of the gastroesophageal junction which shows contrast collect ion as on prior exam, probable postoperative appearance. Some delay of transit across the gastric sle puma region. Persistent contrast in the distal esophagus is noted with probable tertiary esophageal co ntractions. No extravasation is identified. Left lower lobe atelectatic changes are suspected in the retrocardiac region. Surgical clips present right upper quadrant. IMPRESSION: Postoperative appearance as described with hesitancy of contrast material to flow across the surgical bed. No evident extravasation. Left lower lobe atelectasis.
--- NOTE | 2019-03-26 09:47 | P.DS ---
Providers Date of admission: 03/25/19 12:18 Expected date of discharge: 03/26/19 Attending physician: Maira Rayo Primary care physician: Migdalia Good - Discharge Diagnosis(es) (1) Paraesophageal hernia with obstruction but no gangrene Status: Acute (2) Gastroesophageal reflux disease Status: Acute (3) Bipolar disorder current episode depressed Status: Acute (4) Suicidal ideations Status: Acute (5) Epigastric pain Status: Acute (6) Diabetic nephropathy associated with diabetes mellitus due to underlying condition Status: Acute (7) Morbid obesity due to excess calories Status: Acute (8) BMI 38.0-38.9,adult Status: Acute (9) History of sleeve gastrectomy Status: Acute (10) Complications of bariatric procedures Status: Acute Hospital Course: POSTOPERATIVE DIAGNOSES: 1. Gastroesophageal reflux disease, severe with erosive esophagitis 2. Paraesophageal hiatal hernia, midline. 3. Morbid obesity due to excess calories, BMI of 38.1 4. History of sleeve gastrectomy 5. Epigastric abdominal pain. 6. Diabetes type 2, insulin-dependent 7. Fibromyalgia 8. Bipolar disorder 9. Diabetic neuropathy 10. Anxiety disorder generalized 11. Depressive disorder 12. Seizure disorder. 13. Complications from sleeve gastrectomy 14. Hepatomegaly 15. Tobacco abuse 16. Suicidal ideation COURSE: The patient is a 48-year-old female who presented with epigastric abdominal pain, history of sleeve gastrectomy and gastroesophageal reflux recalcitrant to medical therapy with a symptomatic diaphragmatic hiatal hernia. Preoperative workup including upper endoscopy demonstrated hiatal hernia with erosive esophagitis. Given the severity of her symptoms, she had elected for surgical intervention. Benefits and risks including bleeding, infection, recurrence, dysphagia, injury to the lung, need for further surgery was described at length. Post-procedure, she was tolerating diet. Her pre-operative epigastric abdominal pain had resolved. Tobacco cessation was reinforced as she has high risk for recurrence of hiatal hernia. Images from her procedure was reviewed. Nurse protocol for suicide assessment performed with counseling provided. Discharge orders and dietary hand out given. Vital Signs 03/25/19 03/25/19 03/25/19 12:45 13:35 17:46 Temperature 97.1 F L 97.6 F Pulse Rate Pulse Rate [ 69 62 69 Right Pulse Oximetery] Respiratory 16 18 18 Rate Blood Pressure 101/64 112/61 150/75 [Left Arm Supine] O2 Sat by Pulse 95 96 96 Oximetry 03/25/19 03/25/19 03/25/19 18:00 18:15 18:30 Temperature Pulse Rate Pulse Rate [ 56 L 60 61 Right Pulse Oximetery] Respiratory 18 18 18 Rate Blood Pressure 155/75 142/80 149/81 [Left Arm Supine] O2 Sat by Pulse 100 97 98 Oximetry 03/25/19 03/25/19 03/25/19 18:50 19:05 19:20 Temperature 97.6 F Pulse Rate Pulse Rate [ 60 60 67 Right Pulse Oximetery] Respiratory 16 16 16 Rate Blood Pressure 140/81 136/77 135/80 [Left Arm Supine] O2 Sat by Pulse 94 L 97 95 Oximetry 03/25/19 03/25/19 03/25/19 19:27 19:35 19:37 Temperature Pulse Rate 65 55 L Pulse Rate [ 64 Right Pulse Oximetery] Respiratory 16 16 16 Rate Blood Pressure 134/76 [Left Arm Supine] O2 Sat by Pulse 98 Oximetry 03/25/19 03/25/19 03/25/19 20:05 20:35 21:35 Temperature Pulse Rate Pulse Rate [ 66 69 67 Right Pulse Oximetery] Respiratory 16 18 18 Rate Blood Pressure 130/81 135/84 123/84 [Left Arm Supine] O2 Sat by Pulse 96 94 L 96 Oximetry 03/25/19 03/26/19 03/26/19 22:35 05:41 05:47 Temperature Pulse Rate 67 Pulse Rate [ 75 Right Pulse Oximetery] Respiratory 18 Rate Blood Pressure 113/71 [Left Arm Supine] O2 Sat by Pulse 93 L 99 Oximetry 03/26/19 03/26/19 03/26/19 05:54 08:00 08:40 Temperature 97.5 F L Pulse Rate 76 Pulse Rate [ 65 Right Pulse Oximetery] Respiratory 19 19 Rate Blood Pressure 110/70 [Left Arm Supine] O2 Sat by Pulse 96 Oximetry Laboratory Last Values POC Glucose (mg/dL) 115 mg/dL (75-99) H 03/26/19 06:32 POC Glu Special Needs Tutor ID Randa Michel 03/26/19 06:32 Pertinent Studies: Esophogram demonstrates no obstruction Procedures: OPERATION: 1. Robotic-assisted da Pricila Xi laparoscopic reduction and repair of incarcerated paraesophageal hiatal hernia, 6 x 4 cm, with [place] Biopatch A 8 x 8 cm. 2. Robotic-assisted da Pricila Xi laparoscopic extensive lysis of adhesions over 1 hour 3. Intraoperative esophagogastroscopy Patient Condition at Discharge: Stable Plan - Discharge Summary Discharge Rx Participant: Yes New Discharge Prescriptions: New Bisacodyl [Dulcolax] 5 mg PO DAILY PRN #10 tablet. PRN Reason: Constipation Simethicone 40 mg/0.6 ml Drops [Mylicon Drops] 40 mg PO PCHS PRN #30 ml PRN Reason: Gas Ondansetron Odt [Zofran Odt] 4 mg PO Q8HR PRN #9 tab PRN Reason: Nausea Acetaminophen [Tylenol] 325 mg PO Q4H #30 tab Continue Sertraline [Zoloft] 100 mg PO BID Gabapentin 800 mg PO QID PRN PRN Reason: Pain Insulin Degludec [Tresiba Flextouch U-100] 80 unit SQ HS traMADol HCL [Ultram] 50 mg PO Q6HR PRN PRN Reason: Pain Discontinued Esomeprazole Magnesium [NexIUM] 40 mg PO Q48H Ergocalciferol [Vitamin D2] 50,000 unit PO Q7D Omeprazole 40 mg PO Q48H Discharge Medication List Gabapentin 800 mg PO QID PRN 09/04/15 [History] Sertraline [Zoloft] 100 mg PO BID 09/04/15 [History] Insulin Degludec [Tresiba Flextouch U-100] 80 unit SQ HS 05/11/18 [History] traMADol HCL [Ultram] 50 mg PO Q6HR PRN 03/22/19 [History] Acetaminophen [Tylenol] 325 mg PO Q4H #30 tab 03/26/19 [Rx] Bisacodyl [Dulcolax] 5 mg PO DAILY PRN #10 tablet. 03/26/19 [Rx] Ondansetron Odt [Zofran Odt] 4 mg PO Q8HR PRN #9 tab 03/26/19 [Rx] Simethicone 40 mg/0.6 ml Drops [Mylicon Drops] 40 mg PO PCHS PRN #30 ml 03/26/19 [Rx] Follow up Appointment(s)/Referral(s): Maira Rayo MD [STAFF PHYSICIAN] - 03/30/19 (03-30-2019 AT 10:40AM) Patient Instructions/Handouts: *Surgery [facility] - Scopalamine Patch Instructions, How to Stop Smoking (DC), Nutrition after Bariatric Surgery (DC), Laparoscopic Hiatal Hernia Repair (DC), Laparoscopic Sleeve Gastrectomy (DC) Activity/Diet/Wound Care/Special Instructions: NO lifting over 4 pounds in 4 weeks to April, . February shower. No bathtub soaks. No straws or carbonated beverages. Liquid diet only. Take MOM for constipation. CRUSH, OPEN, OR CUT TABLETS LARGER THAN A SIZE OF A TIC TAC Discharge Disposition: HOME SELF-CARE
[2019-03-26 09:56] LABS: Basophils % (A) 0 %; Eosinophils # (A) 0.1 k/uL (0-0.7); Eosinophils % (A) 1 %; HCT 35.8 % (34.0-46.0); HGB 11.3 gm/dL (11.4-16.0); Lymphocytes # (A) 2.9 k/uL (1.0-4.8); Lymphocytes % (A) 22 %; MCH 28.2 pg (25.0-35.0); MCHC 31.7 g/dL (31.0-37.0); Mean Platelet Volume 7.3; Monocytes # (A) 0.4 k/uL (0-1.0); Monocytes % (A) 3 %; Neutrophils # (A) 9.5 k/uL (1.3-7.7); Neutrophils % (A) 73 %; Platelet Count 317 k/uL (150-450); RBC 4.02 m/uL (3.80-5.40); RDW 14.9 % (11.5-15.5); WBC 13.1 k/uL (3.8-10.6)
[2019-03-26 10:06] LABS: African American GFR (CKD) >90 (>60 ml/min/1.73 sqM); Anion Gap 5 mmol/L; Blood Urea Nitrogen 13 mg/dL (7-17); Calcium 8.5 mg/dL (8.4-10.2); Carbon Dioxide 27 mmol/L (22-30); Chloride 108 mmol/L (98-107); Magnesium 1.7 mg/dL (1.6-2.3); Potassium 3.7 mmol/L (3.5-5.1); Sodium 140 mmol/L (137-145)
[2019-03-26 12:38] LABS: Glucose,Whole Blood 167 mg/dL (75-99)
[2019-03-26 13:01] VITALS: BP 103/63; PULSE 95; RESP 18; TEMP 98
[2019-03-27] MEDS ORDERED: BISACODYL 5 MG TABLET.DR PO PRN (08:00)
== END 2019-03-26 13:41 | disposition home or self-care (01) ==
LOC: OR 17:49 → 6PED 17:51 → 2ORMAIN 17:51 → 6PED 17:51 → UNDODISIN 03-26 13:41 → OR 03-26 13:41
PROVIDERS: ATTEND Surgery Plastic and Reconstructive Surgery
DX: K44.0 Diaphragmatic hernia with obstruction, without gangrene (principal); K95.89 Other complications of other bariatric procedure; K66.0 Peritoneal adhesions (postprocedural) (postinfection); K31.89 Other diseases of stomach and duodenum; K21.0 Gastro-esophageal reflux disease with esophagitis; J98.11 Atelectasis; F31.9 Bipolar disorder, unspecified; R45.851 Suicidal ideations; E11.21 Type 2 diabetes mellitus with diabetic nephropathy; E11.40 Type 2 diabetes mellitus with diabetic neuropathy, unspecified; E66.01 Morbid (severe) obesity due to excess calories; Z68.38 Body mass index [BMI] 38.0-38.9, adult; M79.7 Fibromyalgia; F41.1 Generalized anxiety disorder; G40.909 Epilepsy, unspecified, not intractable, without status epilepticus; R16.0 Hepatomegaly, not elsewhere classified; E78.5 Hyperlipidemia, unspecified; M19.90 Unspecified osteoarthritis, unspecified site; G47.33 Obstructive sleep apnea (adult) (pediatric); F17.210 Nicotine dependence, cigarettes, uncomplicated; Z90.3 Acquired absence of stomach [part of]; Z79.4 Long term (current) use of insulin; Z79.899 Other long term (current) drug therapy; Z79.891 Long term (current) use of opiate analgesic; Z99.89 Dependence on other enabling machines and devices; Z98.1 Arthrodesis status; Z98.51 Tubal ligation status; Z90.49 Acquired absence of other specified parts of digestive tract; Z88.8 Allergy status to other drugs, medicaments and biological substances; Z91.040 Latex allergy status
CPT/HCPCS: 94640 ×2; 94760; 80051; 82310; 82565; 83735; 84100; 84520; 85025; 74240; 43282; 43235; C1781; J2250; J1100; J2710; J3411; J2405 ×2; J3480; J2001; J1650; J3010; J1885; J1170 ×2; J2370; J0330; J2704; C9113 ×2; J0690; Q9967

== ENCOUNTER → 2019-04-26 | Outpatient (CLI) | payer MEDICARE, OTHER ==
--- NOTE | 2019-04-26 16:39 | FL ---
EXAMINATION TYPE: FL barium swallow DATE OF EXAM: 04/26/2019 CLINICAL HISTORY: Difficulty swallowing, dysphasia TECHNIQUE: A double contrast esophagram is performed utilizing air and barium. A total of 51 second s of fluoroscopic time was utilized during procedure. Images: 23 COMPARISON: None FINDINGS: The esophagus shows normal motility and emptying into the stomach. Hiatal hernia is evident . During procedure observation of the proximal stomach was performed and there appears to be a large ul cer mound within the proximal stomach. Direct visualization is recommended. There is incomplete diste ntion of the stomach and underlying neoplasm is not excluded. IMPRESSION: 1. Suspicious mass and ulceration within the proximal stomach. Additional workup with EGD is recommen ded. 2. Esophagus appears normal. A Yellow level critical message alert has been initiated for Maira Rayo MD~[id number] via the [employer] Critical Results System on 04/26/2019 4:37 PM. This message alert has been sent to Rossana Rayo MD~[id number] via the preferences provided by the clinician for the receipt of Radiology C ritical Findings. Message ID [id number].
== END | disposition home or self-care (01) ==
LOC: RADUSWWP 09:35
PROVIDERS: ATTEND Surgery Plastic and Reconstructive Surgery
DX: R13.10 Dysphagia, unspecified (principal)
CPT/HCPCS: 74220

== ENCOUNTER 2019-05-06 06:53 | Day surgery (SDC) | payer MEDICARE, OTHER ==
[2019-05-04 14:48] VITALS: BMI 35.3
--- NOTE | 2019-05-05 22:39 | P.GSHP ---
History of Present Illness H&P Date: 05/06/19 CHIEF COMPLAINT: GERD HISTORY OF PRESENT ILLNESS: The patient is a 48-year-old female who presents reports gastroesophageal reflux disease. Upper endoscopy was offered for further evaluation and management. PAST MEDICAL HISTORY: Please see list. PAST SURGICAL HISTORY: Please see list. MEDICATIONS: Please see list. ALLERGIES: Please see list. SOCIAL HISTORY: No illicit drug use FAMILY HISTORY: No reports of Crohn disease or ulcerative colitis. REVIEW OF ORGAN SYSTEMS: CONSTITUTIONAL: No reports of fevers or chills. GI: Denies any blood in stools or constipation. PHYSICAL EXAM: VITAL SIGNS: Stable GENERAL: Well-developed and pleasant in no acute distress. HEENT: No scleral icterus. Extraocular movements grossly intact. Moist buccal mucosa. NECK: Supple without lymphadenopathy. CHEST: Unlabored respirations. Equal bilateral excursions. CARDIOVASCULAR: Regular rate and rhythm. Distal 2+ pulses. ABDOMEN: Soft, nondistended. MUSCULOSKELETAL: No clubbing, cyanosis, or edema. ASSESSMENT: 1. Gastroesophageal reflux disease PLAN: 1. Recommend proceeding with an upper endoscopy Past Medical History Past Medical History: Diabetes Mellitus, Fibromyalgia, GERD/Reflux, Hyperlipidemia, Osteoarthritis (OA), Seizure Disorder, Sleep Apnea/CPAP/BIPAP Additional Past Medical History / Comment(s): LAST SEIZURE over 3 YEARS AGO., hx HIATAL HERNIA,degenerative disc disease., STATES PRE-CANCEROUS CELLS IN THROAT FROM GERD., STATES SOME PROBLEMS WALKING "MY LEGS ARE LIKE SPAGHETTI- I WALK LIKE I'M DRUNK",maru legs neuropathy, not using cpap, History of Any Multi-Drug Resistant Organisms: None Reported Past Surgical History: Back Surgery, Bariatric Surgery, Cholecystectomy, Tonsillectomy, Tubal Ligation Additional Past Surgical History / Comment(s): gastric sleeve, hiatal hernia repair., cervical fusion, Past Anesthesia/Blood Transfusion Reactions: Motion Sickness, Postoperative Nausea & Vomiting (PONV) Additional Past Anesthesia/Blood Transfusion Reaction / Comment(s): has a hard time sometimes waking up with anesthesia, no hx blood transfusion Smoking Status: Current every day smoker - Past Family History Mother Family Medical History: No Reported History Additional Family Medical History / Comment(s): DIVERTICULITIS Father Family Medical History: Diabetes Mellitus Medications and Allergies Home Medications Medication Instructions Recorded Confirmed Type Gabapentin 800 mg PO QID PRN 09/04/15 05/04/19 History Sertraline [Zoloft] 100 mg PO BID 09/04/15 05/04/19 History Insulin Degludec [Tresiba 80 unit SQ HS 05/11/18 05/04/19 History Flextouch U-100] traMADol HCL [Ultram] 50 mg PO Q6HR PRN 03/22/19 05/04/19 History Ondansetron Odt [Zofran Odt] 4 mg PO Q8HR PRN #9 tab 03/26/19 05/04/19 Rx Esomeprazole Magnesium [NexIUM] 40 mg PO HS 05/04/19 05/04/19 History Allergies Allergy/AdvReac Type Severity Reaction Status Date / Time aspartame Allergy Unknown Verified 05/04/19 14:34 carbamazepine [From Tegretol] Allergy Unknown Verified 05/04/19 14:34 latex Allergy Rash/Hives/ Verified 05/04/19 14:34 swelling
[~2019-05-06 06:53] MED LIST changes: -BUPIVACAIN-EPI 0.25%-1:200,000 30 ML VIAL SQ ONE; -ENOXAPARIN 40 MG/0.4 ML SYRINGE SQ STA; -GLYCOPYRROLATE 0.2 MG/ML 2 ML VIAL ONE; -HEPARIN SODIUM,PORCINE 5,000 UNIT/ML 1 ML VIAL SQ ONE; -HYDROcodone/APAP 15 ML SOLUTION PO PRN; -HYDROmorphone (PF) 1 MG/ML ONE; -HYDROmorphone 0.5 MG/0.5 ML SYRINGE IVP PRN; -KETOROLAC 30 MG/ML 1 ML VIAL ONE; -LACTATED RINGERS 1,000 ML IV ONE; +LACTATED RINGERS 1,000 ML IV SCH; -LIDOCAINE 1% INJ 10MG/ML (20 ML MDV) ONE; -MIDAZOLAM 2 MG/2 ML VIAL IV PRN; -MIDAZOLAM 2 MG/2 ML VIAL ONE; -NALOXONE 0.4 MG/ML 1 ML VIAL IV PRN; -NEOSTIGMINE 1 MG/ML 10 ML VIAL ONE; -PHENYLEPHRINE-0.9% NACL SYG 1 MG/10 ML SYRINGE ONE; -PROPOFOL 10 MG/ML 20 ML VIAL IV ONE; -ROCURONIUM BROMIDE 10 MG/ML 10 ML VIAL IV ONE; -SUCCINYLCHOLINE CHLORIDE 100 MG/5 ML SYR IV ONE; -ceFAZolin IN SWFI 2 GM/20 ML SYRINGE IVP ONE; -diphenhydrAMINE 50 MG/ML 1 ML VIAL IVP PRN; -fentaNYL (PF) 50 MCG/ML 2 ML AMP ONE
[2019-05-06 07:12] VITALS: TEMP 97.3
[2019-05-06 07:17] LABS: Glucose,Whole Blood 139 mg/dL (75-99)
[2019-05-06] MEDS ORDERED: PROPOFOL 10 MG/ML 20 ML VIAL IV ONE (07:25)
[2019-05-06] MEDS ORDERED: LIDOCAINE 1% INJ 10MG/ML (20 ML MDV) ONE (07:25)
--- NOTE | 2019-05-06 07:56 | P.PCN ---
Date of Procedure: 05/06/19 Description of Procedure: PREOPERATIVE DIAGNOSIS: History of abnormal esophagram Dysphagia Epigastric abdominal pain. Status post sleeve gastrectomy. Gastroesophageal reflux disease. History of hiatal hernia. POSTOPERATIVE DIAGNOSIS: History of abnormal esophagram Dysphagia Epigastric abdominal pain. Status post sleeve gastrectomy. Gastroesophageal reflux disease. History of hiatal hernia. Hypertensive upper esophageal sphincter OPERATION: Esophagogastroduodenoscopy with rigid dilation of upper esophagus, 42-Bahamian Esophagogastroduodenoscopy with cold forceps biopsies along the antrum. SURGEON: Maira Rayo MD ANESTHESIA: MAC. INDICATIONS: The patient is a 48-year-old female who presents with a history of sleeve gastrectomy with dysphagia and globus. Benefits and risks of the procedure were described. Informed consent was obtained. DESCRIPTION: The patient was brought into the endoscopy suite and laid in the left lateral decubitus position. An Olympus gastroscope was passed along the posterior oropharynx down to the distal esophagus where the squamocolumnar junction showed resolved chronic erosive esophagitis. A hypertensive upper esophageal sphincter was identified consistent with her dysphagia and globus. No evidence of esophageal ulcer was found. The stomach was entered where her prior 6-cm hiatal hernia was reduced and repaired. Mild Corkscrewing of the gastric sleeve gastrectomy with moderate angulation at the angularis incisura was found. Resolved chronic gastritis was found with cold biopsies obtained. The first through third portion of the duodenum was examined and unremarkable. Next, a guidewire was placed. The scope was removed. A rigid Kenyan dilator 42-Bahamian was placed over a guidewire into the sleeve to address her hypertensive upper esophageal sphincter. The dilator and guidewire was placed for up to 2 minutes and withdrawn. The scope was reentered without any evidence of mucosal injury. The hypertensive upper esophageal sphincter had resolved. The stomach was desufflated. The patient tolerated the procedure well. FINDINGS: No acute ulceration found along her sleeve. Corkscrewing of sleeve gastrectomy. Resolved diaphragmatic hiatal hernia Resolved LA grade C erosive esophagitis. No active duodenitis. Resolved moderate gastritis. Moderate distortion of gastric sleeve and angularis incisura with adequate reservoir. Hill grade unobtainable secondary to sleeve gastrectomy RECOMMENDATIONS: Upper endoscopy as needed. May benefit from conversion to gastric bypass for sleeve anomaly Plan - Discharge Summary Discharge Rx Participant: Yes New Discharge Prescriptions: New Metoclopramide [Reglan] 10 mg PO ACHS #30 tab Continue Gabapentin 800 mg PO QID PRN PRN Reason: neuropathy Insulin Degludec [Tresiba Flextouch U-100] 80 unit SQ HS traMADol HCL [Ultram] 50 mg PO Q6HR PRN PRN Reason: Pain Ondansetron Odt [Zofran ODT] 4 mg PO Q8HR PRN #9 tab PRN Reason: Nausea Esomeprazole Magnesium [NexIUM] 40 mg PO HS Discharge Medication List Gabapentin 800 mg PO QID PRN 09/04/15 [History] Insulin Degludec [Tresiba Flextouch U-100] 80 unit SQ HS 05/11/18 [History] traMADol HCL [Ultram] 50 mg PO Q6HR PRN 03/22/19 [History] Ondansetron Odt [Zofran ODT] 4 mg PO Q8HR PRN #9 tab 03/26/19 [Rx] Esomeprazole Magnesium [NexIUM] 40 mg PO HS 05/04/19 [History] Metoclopramide [Reglan] 10 mg PO ACHS #30 tab 05/06/19 [Rx] Follow up Appointment(s)/Referral(s): Maira Rayo MD [STAFF PHYSICIAN] - 05/25/19 Patient Instructions/Handouts: *[facility] - (Anesthesia) Endoscopy Discharge Instructions, Upper Endoscopy (DC), Esophageal Dilation (DC) Activity/Diet/Wound Care/Special Instructions: Liquid diet today. Soft diet tomorrow Discharge Disposition: HOME SELF-CARE
[2019-05-06 08:16] VITALS: BP 117/79; PULSE 70; RESP 16
== END 2019-05-06 08:46 | disposition home or self-care (01) ==
LOC: ORWHC2ENDO 06:53
PROVIDERS: ATTEND Surgery Plastic and Reconstructive Surgery
DX: K21.9 Gastro-esophageal reflux disease without esophagitis (principal); K29.50 Unspecified chronic gastritis without bleeding; K22.8 Other specified diseases of esophagus; R13.10 Dysphagia, unspecified; Z98.84 Bariatric surgery status; E78.5 Hyperlipidemia, unspecified; M79.7 Fibromyalgia; E11.42 Type 2 diabetes mellitus with diabetic polyneuropathy; G40.909 Epilepsy, unspecified, not intractable, without status epilepticus; M19.90 Unspecified osteoarthritis, unspecified site; G47.33 Obstructive sleep apnea (adult) (pediatric); Z99.89 Dependence on other enabling machines and devices; F17.200 Nicotine dependence, unspecified, uncomplicated; Z79.4 Long term (current) use of insulin; Z79.891 Long term (current) use of opiate analgesic; Z79.899 Other long term (current) drug therapy; Z88.8 Allergy status to other drugs, medicaments and biological substances; Z91.040 Latex allergy status; Z90.49 Acquired absence of other specified parts of digestive tract; Z98.51 Tubal ligation status; Z83.3 Family history of diabetes mellitus
CPT/HCPCS: 43248; 43239; 88305; J2001; J2704; 43249

== ENCOUNTER → 2019-11-11 | Outpatient (CLI) | payer MEDICARE, OTHER ==
[2019-11-11 17:08] LABS: African American GFR (CKD) >90 (>60 ml/min/1.73 sqM); Blood Urea Nitrogen 24 mg/dL (7-17); Non-African American GFR(CKD) 80 (>60 ml/min/1.73 sqM)
--- NOTE | 2019-11-12 06:51 | CT ---
EXAMINATION TYPE: CT chest w con DATE OF EXAM: 11/11/2019 COMPARISON: Chest CT April 05, 2013 HISTORY: Interstitial edema. CT DLP: 450.30 mGycm. Automated Exposure Control for Dose Reduction was Utilized. TECHNIQUE: CT scan of the thorax is performed following with IV Contrast, patient injected with 100 mL of Isovue 300. FINDINGS: LUNGS: Some dependent atelectasis bilateral lower lobes. No suspicious focal consolidation or groundg lass opacity. No pleural effusion or pneumothorax is seen bilaterally. Tracheobronchial tree is paten t. MEDIASTINUM: There are no greater than 1 cm hilar or mediastinal lymph nodes. No pericardial effusi on is seen. Mild cardiomegaly again seen. OTHER: Surgical changes from gastric sleeve redemonstrated. Stable small hiatal hernia. Knlj-id-ryzhg ate disc space narrowing and spurring in the mid to lower thoracic spine. Cholecystectomy clips are p resent. IMPRESSION: Cardiomegaly without suspicious acute pulmonary process. No significant alveolar or inter stitial edema or pleural effusions noted to suggest heart failure.
== END | disposition home or self-care (01) ==
LOC: RADCTMAIN 16:27
PROVIDERS: ATTEND Internal Medicine Critical Care Medicine
DX: I51.7 Cardiomegaly (principal); Z91.040 Latex allergy status
CPT/HCPCS: 82565; 84520; 71260; 36415; Q9967

== ENCOUNTER → 2020-03-15 | Outpatient (CLI) | payer MEDICARE, OTHER ==
--- NOTE | 2020-03-15 10:42 | FL ---
EXAMINATION TYPE: FL barium swallow DATE OF EXAM: 03/15/2020 LIMITED UGI: CLINICAL HISTORY: Dysphasia, history of gastric sleeve 5 years ago and esophageal dilatation with in creasing dysphagia with difficulty swallowing foods. TECHNIQUE: Limited esophagram is performed utilizing 30 oz of barium. A total of 39 seconds of fluor oscopic time was utilized during procedure. 77 spot images are saved. COMPARISON: Chest CT November 11, 2019. Prior swallow study April 26, 2019. FINDINGS: The patient swallowed contrast without difficulty or delay. Esophageal peristalsis and mo tility show occasional secondary and tertiary contractions in the mid to distal esophagus. There is abrupt caliber change distal esophagus just above diaphragm corresponding to level of surgical suture s from gastric sleeve surgery which extend above the diaphragm when correlating with CT. Occasional e pisode of gastroesophageal reflux noted during real-time performance of study. Good flow from gastric sleeve into the duodenal sweep with fairly moderate mucosal thickening proximal sleeve just below di aphragm. No contrast extravasation to suggest leak. IMPRESSION: Moderate proximal gastritis within gastric sleeve just below diaphragm. Mild to moderate gastroesophageal reflux. Sutures from gastric sleeve extending above the diaphragm with abrupt calibe r change at junction of distal esophagus with proximal portion of gastric sleeve.
== END | disposition home or self-care (01) ==
LOC: RADUSWWP 09:14
PROVIDERS: ATTEND Surgery Plastic and Reconstructive Surgery
DX: K29.70 Gastritis, unspecified, without bleeding (principal); K21.9 Gastro-esophageal reflux disease without esophagitis; Z91.040 Latex allergy status; Z88.8 Allergy status to other drugs, medicaments and biological substances
CPT/HCPCS: 74220

== ENCOUNTER → 2020-03-21 | Outpatient (CLI) | payer MEDICARE, OTHER | END | disposition home or self-care (01) | LOC: LABWHC1 10:43 | PROVIDERS: ATTEND Surgery Plastic and Reconstructive Surgery | DX: Z11.59 Encounter for screening for other viral diseases (principal) ==

== ENCOUNTER 2020-03-23 07:11 | Day surgery (SDC) | payer MEDICARE, OTHER ==
[2020-03-22 08:22] VITALS: BMI 37.0
--- NOTE | 2020-03-22 19:46 | P.GSHP ---
History of Present Illness H&P Date: 03/23/20 CHIEF COMPLAINT: GERD HISTORY OF PRESENT ILLNESS: The patient is a 49-year-old female who presents reports gastroesophageal reflux disease. Upper endoscopy was offered for further evaluation and management. PAST MEDICAL HISTORY: Please see list. PAST SURGICAL HISTORY: Please see list. MEDICATIONS: Please see list. ALLERGIES: Please see list. SOCIAL HISTORY: No illicit drug use FAMILY HISTORY: No reports of Crohn disease or ulcerative colitis. REVIEW OF ORGAN SYSTEMS: CONSTITUTIONAL: No reports of fevers or chills. GI: Denies any blood in stools or constipation. PHYSICAL EXAM: VITAL SIGNS: Stable GENERAL: Well-developed and pleasant in no acute distress. HEENT: No scleral icterus. Extraocular movements grossly intact. Moist buccal mucosa. NECK: Supple without lymphadenopathy. CHEST: Unlabored respirations. Equal bilateral excursions. CARDIOVASCULAR: Regular rate and rhythm. Distal 2+ pulses. ABDOMEN: Soft, nondistended. MUSCULOSKELETAL: No clubbing, cyanosis, or edema. ASSESSMENT: 1. Gastroesophageal reflux disease PLAN: 1. Recommend proceeding with an upper endoscopy Past Medical History Past Medical History: Diabetes Mellitus, Fibromyalgia, GERD/Reflux, Osteoarthritis (OA), Seizure Disorder, Sleep Apnea/CPAP/BIPAP Additional Past Medical History / Comment(s): LAST SEIZURE 2015., hx HIATAL HERNIA,degenerative disc disease., STATES PRE-CANCEROUS CELLS IN THROAT FROM GERD, STATES SOME PROBLEMS WALKING "MY LEGS ARE LIKE SPAGHETTI- I WALK LIKE I'M DRUNK", maru legs neuropathy, not using cpap, History of Any Multi-Drug Resistant Organisms: None Reported Past Surgical History: Back Surgery, Bariatric Surgery, Cholecystectomy, Tonsillectomy, Tubal Ligation Additional Past Surgical History / Comment(s): gastric sleeve, hiatal hernia repair, cervical fusion, Past Anesthesia/Blood Transfusion Reactions: Motion Sickness, Postoperative Nausea & Vomiting (PONV) Additional Past Anesthesia/Blood Transfusion Reaction / Comment(s): has a hard time sometimes waking up with anesthesia, no hx blood transfusion Smoking Status: Current every day smoker - Past Family History Mother Family Medical History: No Reported History Additional Family Medical History / Comment(s): DIVERTICULITIS Father Family Medical History: Diabetes Mellitus Medications and Allergies Home Medications Medication Instructions Recorded Confirmed Type Gabapentin 800 mg PO QID PRN 09/04/15 03/22/20 History Insulin Degludec [Tresiba 80 unit SQ HS 05/11/18 03/22/20 History Flextouch U-100] traMADol HCL [Ultram] 50 mg PO Q6HR PRN 03/22/19 03/22/20 History Ondansetron Odt [Zofran ODT] 4 mg PO Q8HR PRN #9 tab 03/26/19 03/22/20 Rx Metoclopramide [Reglan] 10 mg PO ACHS #30 tab 05/06/19 03/22/20 Rx Ergocalciferol [Vitamin D2 50,000 unit PO TU 03/22/20 03/22/20 History (DRISDOL)] Prilosec 1 tab PO DAILY 03/22/20 History Sertraline [Zoloft] 100 mg PO BID 03/22/20 03/22/20 History Allergies Allergy/AdvReac Type Severity Reaction Status Date / Time aspartame Allergy Unknown Verified 03/22/20 08:17 carbamazepine [From Tegretol] Allergy Unknown Verified 03/22/20 08:17 latex Allergy Rash/Hives/ Verified 03/22/20 08:17 swelling
[~2020-03-23 07:11] MED LIST changes: -LIDOCAINE 1% 20 ML VIAL (10MG/ML) FOR IV START INTRADERMA PRN
[2020-03-23 07:37] VITALS: RESP 16; TEMP 97.4
[2020-03-23 07:39] LABS: Glucose,Whole Blood 68 mg/dL (75-99)
[2020-03-23] MEDS ORDERED: PROPOFOL 10 MG/ML 20 ML VIAL IV ONE (07:42)
[2020-03-23] MEDS ORDERED: LIDOCAINE 1% INJ 10MG/ML (20 ML MDV) ONE (07:42)
[2020-03-23] MEDS ORDERED: LACTATED RINGERS 1,000 ML IV ONE (07:54)
--- NOTE | 2020-03-23 07:56 | P.HPADDEND ---
H&P Addendum H&P Addendum Date: 03/23/20 Patient reports reflux disease. We'll proceed with upper endoscopy possible dilation
[2020-03-23 08:01] LABS: Glucose,Whole Blood 69 mg/dL (75-99)
--- NOTE | 2020-03-23 08:04 | P.PCN ---
Date of Procedure: 03/23/20 Description of Procedure: PREOPERATIVE DIAGNOSIS: Status post sleeve gastrectomy. Gastroesophageal reflux disease. Morbid obesity due to excess calories, BMI 37.1 POSTOPERATIVE DIAGNOSIS: Status post sleeve gastrectomy. Gastroesophageal reflux disease. Morbid obesity due to excess calories, BMI 37.1 Erosive esophagitis, chronic. Diaphragmatic hiatal hernia without obstruction. Chronic superficial gastritis. OPERATION: Esophagogastroduodenoscopy with cold forceps biopsies along the antrum. SURGEON: Maira Rayo MD ANESTHESIA: MAC. INDICATIONS: The patient is a 49-year-old female who presents with a history of sleeve gastrectomy and worsening gastroesophageal reflux disease. She is over 4 years out from her bariatric procedure. Benefits and risks of the procedure were described. Informed consent was obtained. DESCRIPTION: The patient was brought into the endoscopy suite and laid in the left lateral decubitus position. An Olympus gastroscope was passed along the posterior oropharynx down to the distal esophagus where the squamocolumnar junction was at 37 centimeters from the incisors remarkable for chronic erosive esophagitis, LA grade B without ulceration. The stomach was entered where she had a recurrent 2- cm hiatal hernia with the diaphragmatic hiatus found at 39 cm. The sleeve reservoir was extremely narrowed at the level of the gastric cardia with tortuosity along the body of the sleeve and narrowing at the angularis incisura. The scope was retroflexed with view of the fitted sleeve around the scope. Chronic gastritis was found along the antrum with cold biopsies obtained. The first through third portion of the duodenum was examined and unremarkable. The stomach was desufflated. The patient tolerated the procedure well. FINDINGS: No acute ulceration found along her sleeve. Corkscrewing along her sleeve gastrectomy. Squamocolumnar junction at 37 cm from the incisors. Diaphragmatic hiatus at 39 cm. Tortuosity along sleeve gastrectomy with fusiform dilation along the mid body of the sleeve and narrowing along the angularis incisura Hiatal hernia 2 cm, fixed. LA grade B erosive esophagitis. No active duodenitis. Chronic gastritis. RECOMMENDATIONS: Upper endoscopy as needed. Recommend referral to a tertiary care center for further assessment and m anagement of sleeve gastrectomy Plan - Discharge Summary Discharge Rx Participant: Yes New Discharge Prescriptions: Continue Gabapentin 800 mg PO QID PRN PRN Reason: neuropathy Insulin Degludec [Tresiba Flextouch U-100] 80 unit SQ HS traMADol HCL [Ultram] 50 mg PO Q6HR PRN PRN Reason: Pain Metoclopramide [Reglan] 10 mg PO ACHS #30 tab Prilosec 1 tab PO DAILY Ergocalciferol [Vitamin D2 (DRISDOL)] 50,000 unit PO TU Sertraline [Zoloft] 100 mg PO BID Discharge Medication List Gabapentin 800 mg PO QID PRN 09/04/15 [History] Insulin Degludec [Tresiba Flextouch U-100] 80 unit SQ HS 05/11/18 [History] traMADol HCL [Ultram] 50 mg PO Q6HR PRN 03/22/19 [History] Metoclopramide [Reglan] 10 mg PO ACHS #30 tab 05/06/19 [Rx] Ergocalciferol [Vitamin D2 (DRISDOL)] 50,000 unit PO TU 03/22/20 [History] Prilosec 1 tab PO DAILY 03/22/20 [History] Sertraline [Zoloft] 100 mg PO BID 03/22/20 [History] Follow [facility]ment(s[facility] [place] [place] [facility] - 03[facility]29/20 Patient Instructions/Handouts: Gastritis (DC), Esophagitis (ED) Discharge Disposition: HOME SELF-CARE
[2020-03-23 08:11] LABS: Glucose,Whole Blood 77 mg/dL (75-99)
[2020-03-23 08:23] VITALS: BP 126/79; PULSE 63
== END 2020-03-23 08:59 | disposition home or self-care (01) ==
LOC: ORWHC2ENDO 07:11
PROVIDERS: ATTEND Surgery Plastic and Reconstructive Surgery
DX: K29.30 Chronic superficial gastritis without bleeding (principal); K21.0 Gastro-esophageal reflux disease with esophagitis; K22.10 Ulcer of esophagus without bleeding; K44.9 Diaphragmatic hernia without obstruction or gangrene; G47.33 Obstructive sleep apnea (adult) (pediatric); M19.90 Unspecified osteoarthritis, unspecified site; M79.7 Fibromyalgia; F31.9 Bipolar disorder, unspecified; E66.01 Morbid (severe) obesity due to excess calories; Z98.84 Bariatric surgery status; Z68.37 Body mass index [BMI] 37.0-37.9, adult; Z79.4 Long term (current) use of insulin; Z79.899 Other long term (current) drug therapy; Z91.040 Latex allergy status; Z88.8 Allergy status to other drugs, medicaments and biological substances
CPT/HCPCS: 88305; 43239; J2001; J2704

== ENCOUNTER → 2020-07-28 | Outpatient (CLI) | payer MEDICARE, OTHER ==
[2020-07-28 16:39] LABS: HCT 40.5 % (34.0-46.0); HGB 13.4 gm/dL (11.4-16.0); MCV 90.9 fL (80.0-100.0); Mean Platelet Volume 7.4; Platelet Count 305 k/uL (150-450); RBC 4.45 m/uL (3.80-5.40); RDW 14.3 % (11.5-15.5); WBC 11.1 k/uL (3.8-10.6)
[2020-07-29 02:01] LABS: Hemoglobin A1C 8.6 % (4.0-6.0)
[2020-07-29 02:36] LABS: INR 0.97 (0.90-1.11); Partial Thromboplastin Time 27.4 sec (24.7-29.9); Prothrombin Time 10.4 sec (9.9-11.9)
[2020-07-29 03:31] LABS: % Iron Saturation 13.42 (12.00-45.00); Albumin 4.1 g/dL (3.80-4.90); Albumin/Globulin Ratio 2.16 (1.60-3.17); Anion Gap 9.6 mmol/L (4.00-12.00); Calcium 9.2 mg/dL (8.7-10.3); Carbon Dioxide 24.4 mmol/L (21.6-31.8); Chol/HDL Ratio 4.57; Globulin 1.9 g/dL (1.6-3.3); LDL Cholesterol,Calculated 129.8 mg/dL (0.0-131.0); Magnesium 1.7 mg/dL (1.5-2.4); Non-African American GFR(CKD) 75.1 (60.0-200.0); Phosphorus 4.8 mg/dL (2.4-5.1); Potassium 4.2 mmol/L (3.5-5.5); Total Bilirubin 0.6 mg/dL (0.3-1.2); VLDL Calculation 27.2 mg/dL (5.00-40.00)
[2020-07-29 03:38] LABS: Folate, Serum 7.9 ng/mL
[2020-07-29 03:44] LABS: Ferritin 14.6 ng/mL (10.0-291.0)
[2020-08-01 06:22] LABS: Zinc, Serum 58 ug/dL (60-130)
[2020-08-01 06:27] LABS: Vitamin A 61 ug/dL (38-106)
[2020-08-02 10:53] LABS: Vit B1(Thiamine) 70 ug/L (38-122)
== END | disposition home or self-care (01) ==
LOC: LABWHC1 16:06
PROVIDERS: ATTEND Surgery Plastic and Reconstructive Surgery
DX: E21.1 Secondary hyperparathyroidism, not elsewhere classified (principal); D50.9 Iron deficiency anemia, unspecified; K90.9 Intestinal malabsorption, unspecified; E55.9 Vitamin D deficiency, unspecified; K74.1 Hepatic sclerosis; N19 Unspecified kidney failure; K50.90 Crohn's disease, unspecified, without complications; E66.01 Morbid (severe) obesity due to excess calories; E89.1 Postprocedural hypoinsulinemia
CPT/HCPCS: 36415; 77062; 77066; 80053; 80061; 82306; 82525; 82607; 82728; 82746; 83036; 83540; 83550; 83735; 83970; 84100; 84134; 84255; 84425; 84443; 84590; 84630; 85027; 85610; 85730; 93005

== ENCOUNTER → 2020-07-28 | Outpatient (CLI) | payer MEDICARE, OTHER ==
--- NOTE | 2020-07-31 11:13 | MM ---
Reason for exam: additional evaluation requested from prior study. Last mammogram was performed 2 years and 9 months ago. History: Patient is postmenopausal. Family history of breast cancer in maternal aunt. Benign US biopsy breast VAD RT of the right breast, October 27, 2017. Benign US biopsy breast add'l VAD RT of the right breast, October 27, 2017. Took hormonal contraceptives for 2 years beginning at age 14. Physical Findings: Nurse did not find any significant physical abnormalities on exam. MG 3D Diag Mammo W/Cad WINNIE Bilateral CC and MLO view(s) were taken. Prior study comparison: October 27, 2017, right breast MG diagnostic mammo RT wo CAD. September 26, 2017, bilateral MG 3d diag mammo w/cad WINNIE. There are scattered fibroglandular densities. Finding: There is a 10 mm indistinct oval mass located 6 cm from the nipple in the inner quadrant, middle position of the right breast. Previous mammotome biopsy in the right breast. There is a chronic nodularity bilaterally. Focal asymmetry 6mm left anterior middle outer quadrant 6-7cm from the nipple. New finding since September 26, 2017. These results were verbally communicated with the patient and result sheet given to the patient on 07/28/20. ASSESSMENT: Incomplete: need additional imaging evaluation, BI-RAD 0 RECOMMENDATION: Ultrasound of both breasts.
--- NOTE | 2020-07-31 11:16 | USB ---
Reason for exam: additional evaluation requested from abnormal screening. History: Patient is postmenopausal. Family history of breast cancer in maternal aunt. Benign US biopsy breast VAD RT of the right breast, October 27, 2017. Benign US biopsy breast add'l VAD RT of the right breast, October 27, 2017. Took hormonal contraceptives for 2 years beginning at age 14. US Breast Limited BILAT Right limited breast ultrasound including focal area of concern, retroareolar and axilla demonstrates a 0.8 x 0.5 x 0.8cm cystic cluster at 6 o'clock, cysts or cyst with septation. Left limited breast ultrasound including focal area of concern, retroareolar and axilla demonstrates a 0.5 x 0.3 x 0.4cm mixed lesion too small to characterize at 3 o'clock and a 0.8 x 0.4 x 0.7cm cystic lesion at 6 o'clock. These results were verbally communicated with the patient and result sheet given to the patient on 07/28/20. ASSESSMENT: Probably benign, BI-RAD 3 RECOMMENDATION: Follow-up diagnostic mammogram and ultrasound of both breasts in 6 months.
== END | disposition home or self-care (01) ==
LOC: RADMAMWWP 14:50
PROVIDERS: ATTEND Family Medicine
DX: R92.8 Other abnormal and inconclusive findings on diagnostic imaging of breast (principal)
CPT/HCPCS: 77066; 76642; G0279; 77062

== ENCOUNTER → 2020-08-16 | Outpatient (CLI) | payer MEDICARE, OTHER ==
[2020-08-16 14:46] VITALS: BP 113/72; PULSE 79; TEMP 98.3; BMI 37.7
--- NOTE | 2020-08-16 15:13 | P.PN ---
Subjective Progress Note Date: 08/16/20 DATE OF SERVICE: 08/16/2020 [facility] COMPLAINT: Complications status post sleeve gastrectomy HISTORY OF PRESENT ILLNESS: Irina Yanes is a 49-year-old female who comes in with complications from sleeve gastrectomy. She comes in for gastric bypass revision from gastric sleeve. She has severe gastroesophageal reflux disease as a result of her sleeve gastrectomy despite hiatal hernia repairs. She is here for complications from her sleeve gastrectomy. She has completed pre-surgical work up. As a result of her morbid obesity, she has developed diabetes type II, hypertension, and sleep apnea. At height of 5 feet 0.5 inches, her ideal body weight is 127 pounds. Her highest weight was 215 pounds, BMI 41.5. She comes in 196 pounds from 197 pounds, 2 months ago. Her body mass index is 37.7. She is 69 pounds overweight. PAST MEDICAL HISTORY: 1. Morbid obesity due to excess calories 2. Body mass index of 41.5 initial 3. Gastroesophageal reflux disease 4. Diabetes type 2, insulin dependent 5. Fibromyalgia 6. Seizure disorder 7. Obstructive sleep apnea 8. Neuropathy bilateral legs 9. Osteoarthritis of the lower back 10. Osteoarthritis of the knees 11. Hyperlipidemia 12. Bipolar disorder 13. Depressive disorder PAST SURGICAL HISTORY: 1. Gastric sleeve 2. Hiatal hernia repair 3. Cholecystectomy 4. Tubal ligation 5. Tonsillectomy 6. Cervical fusion HOME MEDICATIONS: Home Medications Medication Instructions Recorded Confirmed Insulin Degludec [Tresiba 80 unit SQ HS 05/11/18 09/05/20 Flextouch U-100] traMADol HCL [Ultram] 50 mg PO Q6HR PRN 03/22/19 09/05/20 Ergocalciferol [Vitamin D2 50,000 unit PO TU 03/22/20 09/05/20 (DRISDOL)] Prilosec 1 tab PO DAILY 03/22/20 09/05/20 Sertraline [Zoloft] 100 mg PO BID 03/22/20 09/05/20 Dapagliflozin Propanediol [Farxiga] 10 mg PO DAILY 08/16/20 09/05/20 Pregabalin [Lyrica] 200 mg PO TID 08/16/20 09/05/20 Previous Rx's Medication Instructions Recorded Metoclopramide [Reglan] 10 mg PO ACHS #30 tab 05/06/19 ALLERGIES: Allergies Allergy/AdvReac Type Severity Reaction Status Date / Time aspartame Allergy Unknown Verified 09/05/20 11:40 carbamazepine [From Tegretol] Allergy Unknown Verified 09/05/20 11:40 latex Allergy Rash/Hives/ Verified 09/05/20 11:40 swelling SOCIAL HISTORY: Past tobacco use. FAMILY HISTORY: No family history of ulcerative colitis disease or Crohn's disease. Family history of morbid obesity. No lupus in the family. No reports o f stomach or esophageal cancer. REVIEW OF ORGAN SYSTEMS: CONSTITUTIONAL: At height of 5 feet 0.5 inches, her ideal body weight is 127 pounds. Her highest weight was 215 pounds, BMI 41.5. HEENT: Denies any active troubles with vision or hearing. Has troubles with swallowing. ENDOCRINE: Has diabetes. No hypothyroidism. CARDIOVASCULAR: Past reports of palpitations or heart attacks or chest pain. RESPIRATORY: Has daytime somnolence. GASTROINTESTINAL: Denies any bright red blood per rectum. Has gastroesophageal reflux disease. MUSCULOSKELETAL: Has lower back pain and joint pain. Has osteoarthritis of the knees. NEURO: No headaches. Has seizure disorders. PSYCH: Has depression. No suicidal ideation. Has bipolar disorder and depressive disorder. RHEUMATOLOGIC: No lupus. No rheumatoid arthritis. HEMATOLOGIC: Denies any abnormal bleeding or bruising. No personal history of DVTs. SKIN: No rash. No skin cancer. PHYSICAL EXAM: VITAL SIGNS: Height 5 foot 0.5 inches, weight 196 pounds. BMI 37.7 Vital Signs Temp 98.3 F 08/16/20 14:34 Pulse 79 08/16/20 14:34 Resp BP 113/72 08/16/20 14:34 Pulse Ox GENERAL: Well-developed in no acute distress. HEENT: No scleral icterus. Extraocular movements grossly intact. Hears conversational speech. No nasal drainage. NECK: Supple without lymphadenopathy. CHEST: Nonlabored respirations with equal bilateral excursions. CARDIOVASCULAR: Regular rate and regular rhythm. Distal 2+ pulses. ABDOMEN: Obese, soft, nontender, nondistended. MUSCULOSKELETAL: No clubbing, cyanosis. NEURO: No focal or lateralizing signs. Cranial nerves 2 through 12 grossly within normal limits. PSYCH: Appropriate affect. Alert and oriented to person, place and time. SKIN: Good skin turgor. Well perfused. LABS: Hgb A1c 8.6 elevated, Iron is low, total protein is low, Zinc is low, Cholesterol is elevated EKG: Normal sinus rhythm. ASSESSMENT: 1. Morbid obesity due to excess calories 2. Body mass index of 41.5 initial 3. Gastroesophageal reflux disease 4. Diabetes type 2, insulin dependent 5. Fibromyalgia 6. Seizure disorder 7. Obstructive sleep apnea 8. Neuropathy bilateral legs 9. Osteoarthritis of the lower back 10. Osteoarthritis of the knees 11. Hyperlipidemia 12. Bipolar disorder 13. Depressive disorder 14. Complications from sleeve gastrectomy PLAN: 1. She comes in with complications from sleeve gastrectomy. She is elevated risk for complications including but not limited to bowel obstruction, leaks, infection, bleeding, nutritional deficiencies for conversion to gastric bypass. Robotic assisted approach described. 2. The [place] [facility] Data was also reviewed with benefits and risks as described. 3. An 8 page second-generation bariatric consent form was reviewed in detail including potential of bleeding, infection, leaks, adequate weight loss, nutritional deficiencies which the patient demonstrated understanding of the risks. 4. A 2 week high-protein low caloric 800 kcal diet described to address hepatomegaly. 5. Preoperative labs including complete metabolic panel and CBC with type and screen recommended. 6. DVT prophylaxis per [place] [facility]. 7. Antibiotic prophylaxis. 8. Inpatient hospitalization anticipated for more than 2 nights. 9. All questions and concerns were addressed with the patient. Objective - Vital Signs Vital signs: Vital Signs Temp 98.3 F 08/16/20 14:34 Pulse 79 08/16/20 14:34 Resp BP 113/72 08/16/20 14:34 Pulse Ox Intake & Output 08/15/20 08/16/20 08/16/20 18:59 06:59 18:59 Weight 89.131 kg
== END | disposition home or self-care (01) ==
LOC: BARWHC3 14:28
PROVIDERS: ATTEND Surgery Plastic and Reconstructive Surgery
DX: E66.01 Morbid (severe) obesity due to excess calories (principal); K21.9 Gastro-esophageal reflux disease without esophagitis; E11.9 Type 2 diabetes mellitus without complications; M79.7 Fibromyalgia; G40.909 Epilepsy, unspecified, not intractable, without status epilepticus; G47.33 Obstructive sleep apnea (adult) (pediatric); E11.40 Type 2 diabetes mellitus with diabetic neuropathy, unspecified; M47.9 Spondylosis, unspecified; M17.0 Bilateral primary osteoarthritis of knee; E78.5 Hyperlipidemia, unspecified; F31.9 Bipolar disorder, unspecified; K95.89 Other complications of other bariatric procedure; Z68.41 Body mass index [BMI] 40.0-44.9, adult
CPT/HCPCS: 99211

== ENCOUNTER → 2020-08-29 | Outpatient (CLI) | payer MEDICARE, OTHER ==
--- NOTE | 2020-08-30 08:04 | CT ---
EXAMINATION TYPE: CT abdomen pelvis wo con DATE OF EXAM: 08/29/2020 COMPARISON: 09/18/2018 HISTORY: Right upper quadrant pain Examination of the solid and hollow viscera is limited given the lack of contrast. FINDINGS: LUNG BASES: No evidence for nodule. No evidence for infiltrate. Pleural thickening left medial lung b ase. LIVER/GB: Cholecystectomy clips are in place. No space-occupying hepatic lesion. PANCREAS: No pancreatic mass identified. No inflammatory process seen. SPLEEN: No evidence for splenomegaly. No intrasplenic lesions seen. ADRENALS: No adrenal nodules identified. No evidence for thickening. KIDNEYS: No evidence for renal mass. No nephrolithiasis. No hydronephrosis. BOWEL: Appendix has a normal appearance. No evidence of bowel obstruction. No inflammatory process. S mall hiatal hernia is redemonstrated. Again noted is a fat-containing umbilical hernia small in size as well as right paramedian ventral hernia also fat-containing small in size at the level of the kidn eys. Lymph nodes: No evidence for adenopathy greater than 1 cm. Abdominal aorta: Atheromatous changes seen. No evidence for aneurysm. Genital organs: Lobulated appearance of the uterus may reflect underlying leiomyomatous change. This could be confirmed with ultrasound. No adnexal masses seen. Other: No significant abnormality. IMPRESSION: 1. Essentially stable abdomen without evidence for acute process. Small hiatal hernia as well as smal l fat-containing hernias.
== END | disposition home or self-care (01) ==
LOC: RADCTMAIN 16:05
PROVIDERS: ATTEND Family Medicine
DX: K44.9 Diaphragmatic hernia without obstruction or gangrene (principal)
CPT/HCPCS: 74176

== ENCOUNTER → 2020-09-04 | Outpatient (CLI) | payer MEDICARE, OTHER ==
[2020-09-04 10:08] VITALS: BMI 37.8
== END | disposition home or self-care (01) ==
LOC: BARWHC3 08:55
PROVIDERS: ATTEND Surgery Plastic and Reconstructive Surgery
DX: E66.01 Morbid (severe) obesity due to excess calories (principal); Z71.3 Dietary counseling and surveillance; Z68.37 Body mass index [BMI] 37.0-37.9, adult
CPT/HCPCS: 97804

== ENCOUNTER → 2020-12-04 | Outpatient (CLI) | payer MEDICARE, OTHER ==
[2020-12-04 13:04] VITALS: BP 123/80; PULSE 79; RESP 16; TEMP 97.8
--- NOTE | 2020-12-04 14:32 | P.PAINCN ---
History of Present Illness - Reason for Consult Consult date: 12/04/20 - History of Present Illness He is also female with a chronic history of severe neck pain and mid back pain and low back pain, patient had the cervical fusion surgery done several years ago which improved her neck pain significantly, but she continued to have some neck pain which is increased with any neck movement and any activity, also patient has severe midback pain which she is diagnosed with thoracic spondylosis and she had RFA of the medial branch thoracic area and will not do what her surgical Center from T6 to T9 which was done in April 2020, she gets excellent pain relief after the RFA, currently she is complaining of severe mid back pain which is increased with any activity interference with her quality of life, she denies any motor or sensory deficit she denies any fever or night sweats and she'll continue to use pain medication Lyrica 200 mg 3 times a day and Ultram 50 mg every 6 hours she denies any side effect of the medication and she is getting prescription refills from her primary care Past Medical History Past Medical History: Diabetes Mellitus, Fibromyalgia, GERD/Reflux, Hyperlipidemia, Osteoarthritis (OA), Seizure Disorder, Sleep Apnea/CPAP/BIPAP Additional Past Medical History / Comment(s): LAST SEIZURE over 3 YEARS AGO., hx HIATAL HERNIA,degenerative disc disease., STATES PRE-CANCEROUS CELLS IN THROAT FROM GERD., STATES SOME PROBLEMS WALKING "MY LEGS ARE LIKE SPAGHETTI- I WALK LIKE I'M DRUNK",maru legs neuropathy, not using cpap, History of Any Multi-Drug Resistant Organisms: None Reported Past Surgical History: Back Surgery, Bariatric Surgery, Cholecystectomy, Tonsillectomy, Tubal Ligation Additional Past Surgical History / Comment(s): gastric sleeve, hiatal hernia repair., cervical fusion, EGD, PAIN CLINIC PROCEDURES Past Anesthesia/Blood Transfusion Reactions: Motion Sickness, Postoperative Nausea & Vomiting (PONV) Additional Past Anesthesia/Blood Transfusion Reaction / Comm: has a hard time sometimes waking up with anesthesia, no hx blood transfusion Past Psychological History: Bipolar, Depression Smoking Status: Current every day smoker Past Alcohol Use History: None Reported Additional Past Alcohol Use History / Comment(s): STARTED SMOKING 1983, SMOKES 4 CIG PER DAY Past Drug Use History: None Reported Additional Drug Use History / Comment(s): denies - Past Family History Mother Family Medical History: No Reported History Additional Family Medical History / Comment(s): DIVERTICULITIS Father Family Medical History: Diabetes Mellitus Medications and Allergies Home Medications Medication Instructions Recorded Confirmed Type Insulin Degludec [Tresiba 80 unit SQ HS 05/11/18 12/04/20 History Flextouch U-100] traMADol HCL [Ultram] 50 mg PO Q6HR PRN 03/22/19 12/04/20 History Metoclopramide [Reglan] 10 mg PO ACHS #30 tab 05/06/19 12/04/20 Rx Ergocalciferol [Vitamin D2 50,000 unit PO TU 03/22/20 12/04/20 History (DRISDOL)] Sertraline [Zoloft] 100 mg PO BID 03/22/20 12/04/20 History Dapagliflozin Propanediol [Farxiga] 10 mg PO DAILY 08/16/20 12/04/20 History Pregabalin [Lyrica] 200 mg PO TID 08/16/20 12/04/20 History Omeprazole [PriLOSEC] 40 mg PO DAILY 11/29/20 12/04/20 History Allergies Allergy/AdvReac Type Severity Reaction Status Date / Time aspartame Allergy GLANDS AND Verified 11/29/20 14:55 THROAT SWELL UP carbamazepine [From Tegretol] Allergy Unknown Verified 09/05/20 11:40 latex Allergy Rash/Hives/ Verified 09/05/20 11:40 swelling Physical Exam Vitals: Vital Signs Temp Pulse Resp BP Pulse Ox 12/04/20 13:00 97.8 F 79 16 123/80 98 Results Comments: Physical Examinations : -Constitutiona : Cooperative , not in acute distress . -HEENT : nech : supple , no Lymphadenopathy , normal thyroid size . : eyes : no ptosis , no icterus, no photophobia . - neurologic : Cranial nerve II to XII intact , no focal neurological deffecit . -psychatric : alert , oriented X 3 , appropriate affect , intact judgment and insight . -Lymphatic : no Lymphadenopathy . - musculoskeltal : Cervical Spine motor stregnth in the deltoid and biceps, normal right side , normal Left side motor stregnth biceps and the wrist extensors normal right side ,normal left side . motor stregnth in the triceps muscle . normal Right side , normal Left side deep tendon reflexes normal at the biceps , normal at Brachioradialis , normal at triceps. cervical facet loading test: Positive Bilaterally Spurling test= positive Right , positive left. Neck distraction test= positive Right , positive left. Ngoc sign= positive right, positive left . Thoracic spine= Positive facet loading test in the thoracic area from T6 to T12 Flexion and extension of the thoracic spine associated with severe pain Lumber spine moter stegnth lower extremities ,thigh and legs 5/5 Right side , 5/5 Left side Assessment and Plan Plan: Assessment and plan=1-thoracic spondylosis with thoracic facet arthropathy without myelopathy Patient had RFA of the thoracic spine medial branch done at [facility], she will be good candidate to have repeat RFA Will schedule patient to have RFA of the medial branch at T7 , T8 , T9 started on the one side and will do the other side and later Time with Patient: Greater than 30 PQRS Measure Charge Sheet Measure #130: Documentation of Current Meds in Medical Chart: Patient's medications documented in chart Measure #226: Tobacco Use: Screen & Cessation Intervention: Pt screened for tobacco use AND intervention given Measure #111: Pneumonia Vaccination: Pneumococcal vaccine NOT administered or previously given Measure #47: Advance Care Plan: Advance care planning discussed & documented, pt chose/unable to give Measure #412: Opioid Treatment Agreement: No documentation of signed opioid elgin atment agreement Measure #408: Opioid Therapy Follow-up Evaluation: Patient had NO f/u eval minimum every 3 months during opioid therapy Measure #317: Preventitive Care & Scrn High Bld Press & F/U: Normal blood pressure, f/u not required Measure #128: Body Mass Index (BMI) Screening & Follow-up: BMI documented ABOVE normal parameters - f/u documented Measure #131: Pain Assessment & Follow-up: Follow-up scheduled Measure #431: Unhealthy Alcohol Use Preventative Care & Scrn: Patient not identified as an unhealthy alcohol user PQRS Narrative: Smoking Status Current every day smoker Blood Pressure 123/80 Pain Intensity [Back] 7 Scale Used Numeric (1 - 10) Hx Alcohol Use (MH) No Home Medications: Ambulatory Orders Insulin Degludec [Tresiba Flextouch U-100] 80 unit SQ HS 05/11/18 traMADol HCL [Ultram] 50 mg PO Q6HR PRN 03/22/19 Metoclopramide [Reglan] 10 mg PO ACHS #30 tab 05/06/19 Ergocalciferol [Vitamin D2 (DRISDOL)] 50,000 unit PO TU 03/22/20 Sertraline [Zoloft] 100 mg PO BID 03/22/20 Dapagliflozin Propanediol [Farxiga] 10 mg PO DAILY 08/16/20 Pregabalin [Lyrica] 200 mg PO TID 08/16/20 Omeprazole [PriLOSEC] 40 mg PO DAILY 11/29/20
== END | disposition home or self-care (01) ==
LOC: PNWHC3 12:31
PROVIDERS: ATTEND Specialist
DX: M47.814 Spondylosis without myelopathy or radiculopathy, thoracic region (principal); F17.200 Nicotine dependence, unspecified, uncomplicated; E11.9 Type 2 diabetes mellitus without complications; M79.7 Fibromyalgia; K21.9 Gastro-esophageal reflux disease without esophagitis; E78.5 Hyperlipidemia, unspecified; G47.33 Obstructive sleep apnea (adult) (pediatric); M19.90 Unspecified osteoarthritis, unspecified site; G40.909 Epilepsy, unspecified, not intractable, without status epilepticus; Z99.89 Dependence on other enabling machines and devices; Z79.4 Long term (current) use of insulin; Z79.899 Other long term (current) drug therapy; Z79.891 Long term (current) use of opiate analgesic; Z88.8 Allergy status to other drugs, medicaments and biological substances; Z91.040 Latex allergy status
CPT/HCPCS: 99211

== ENCOUNTER 2020-12-22 12:49 | Day surgery (SDC) | payer MEDICARE, OTHER ==
[2020-12-18 14:52] VITALS: BMI 35.9
[2020-12-22 13:16] VITALS: TEMP 98.3
[2020-12-22] MEDS ORDERED: LIDOCAINE 1% (10MG/ML) FOR IV START INTRADERMA ONE (13:23)
[2020-12-22] MEDS ORDERED: fentaNYL (PF) 50 MCG/ML 2 ML AMP ONE (13:28)
[2020-12-22] MEDS ORDERED: ROPIVACAINE 5MG/ML 20ML VIAL ONE (13:28)
[2020-12-22] MEDS ORDERED: MIDAZOLAM 2 MG/2 ML VIAL ONE (13:28)
[2020-12-22] MEDS ORDERED: methylPREDNISolone ACETATE 40 MG/ML 1 ML VIAL ONE (13:28)
[2020-12-22 13:41] LABS: Glucose,Whole Blood 149 mg/dL (75-99)
--- NOTE | 2020-12-22 13:56 | P.PCN ---
Date of Procedure: 12/22/20 Procedure(s) Performed: PREOPERATIVE DIAGNOSIS: 1-Thoracic Spondylosis with Facet Arthropathy without myelopathy. POSTOPERATIVE DIAGNOSIS: 1- Thoracic Spondylosis with Facet Arthropathy without myelopathy. PROCEDURES : Left Radiofrequency thermocoagulation, T7 , T8 , and T9 medial br anch, with fluoroscopic guidance (fluoroscopy images available in the radiology department) ( To denervate the facet joint at left T7- 8 and T8- 9 ). ANESTHESIA: Monitored anesthesia care as per anesthesia department . EBL: Minimal PROCEDURE INDICATION: The patient with low back pain secondary to lumbar facet arthropathy who had more than 50% relief of her pain with previous diagnostic lumbar medial branch block with bupivacaine. PROCEDURE DESCRIPTION / TECHNIQUE: The patient was seen and identified in the preoperative area. Risks, benefits, complications, including but not limited to risk of infection ,bleeding , allergic reactions to the medications and no complete pain releife , and alternatives were discussed with the patient, the patient agreed to proceed with the procedure and signed the consent. IV was started. Vital signs remained stable throughout the procedure. Patient was taken to the OR and time out was completed. The patient was placed in the prone position on the procedure table. The lumber area was prepped and draped in the usual sterile fashion. . Vital signs were closely monitored during the procedure .IV sedation was used during the procedure to decrease patients anxiety. Using AP and then oblique fluoroscopy, the ``eye of the Rubens dog corresponding to the connection between the superior and transverse articular processes of left T7,T8 ,T9, were identified, marked, and localized with 1% lidocaine. Subsequently, a 20 [id number] radiofrequency VENUM cannula with a 10-mm active tip was advanced guided by fluoroscopy to each of the``eyes of the Rubens dog at Left T7 ,T8 ,T9 . Each site then underwent sensory testing at 50 Hz and 0 to 1 volt and motor testing at 2.5 Hz and 0 to 3 volt with local stimulation, but no radicular symptoms down the legs. Thereafter each sites underwent radiofrequency thermocoagulation at 80 degrees celsius for 90 seconds after injecting 0.5 ml of PF Ropivacaine 1ml, then after the thermocoagulation done , 1 ml of the block solution containing Depo-Medrol 40 mg and 3 ml of Ropivacaine 0.5% was injected at the left T7 ,T8 ,T9 , levels after negative aspiration of CSF and blood and with no paresthesias. Cannulas were retracted while injecting lidocaine 1% until the needle is out. . At the end of the procedure, the skin was cleansed and bandages were applied. COMPLICATIONS: No acute complications. DISPOSITION / PLANS: The patient was placed in a supine position and transferred to the recovery area in a stable condition for observation and was discharged from the recovery room after meeting discharge criteria. Home discharge instructions given to the patient by the staff. The patient was reexamined prior to discharge. The patient will schedule a follow up in the [facility] in 2-4 weeks.
[2020-12-22 14:06] LABS: Glucose,Whole Blood 182 mg/dL (75-99)
[2020-12-22] MEDS ORDERED: IV FLUID CONTINUATION 400 ML IV ONE (14:15)
[2020-12-22 14:19] VITALS: BP 127/80; PULSE 73; RESP 18
--- NOTE | 2020-12-22 14:27 | XR ---
EXAMINATION TYPE: XR chest 1V portable DATE OF EXAM: 12/22/2020 COMPARISON: Prior chest CT dated 11/11/2019, chest x-ray 09/04/2015 HISTORY: Pneumothorax, status post pain management injection, pain TECHNIQUE: Single frontal view of the chest is obtained. FINDINGS: There is no focal air space opacity, pleural effusion, or pneumothorax seen. The cardiac silhouette size is stable. The lesion is rotated, post procedural changes to the cervical spine mini mal patchy density present at the lung bases. The osseous structures are intact. IMPRESSION: There is likely some basilar atelectasis or scarring.
--- NOTE | 2020-12-22 16:23 | FL ---
Fluoroscopy HISTORY: Pain 13 seconds fluoroscopy time supplied to the referring clinician. 3 intraoperative C-arm images docum ent the procedure. See dictated report from anesthesia.
== END 2020-12-22 14:51 | disposition home or self-care (01) ==
LOC: ORPAIN 12:49
PROVIDERS: ATTEND Specialist
DX: M47.814 Spondylosis without myelopathy or radiculopathy, thoracic region (principal); Z88.8 Allergy status to other drugs, medicaments and biological substances; Z91.02 Food additives allergy status; Z91.040 Latex allergy status; E78.5 Hyperlipidemia, unspecified; G47.33 Obstructive sleep apnea (adult) (pediatric); Z99.89 Dependence on other enabling machines and devices; R56.9 Unspecified convulsions; M79.7 Fibromyalgia; F31.9 Bipolar disorder, unspecified; K21.9 Gastro-esophageal reflux disease without esophagitis; Z79.4 Long term (current) use of insulin; Z79.891 Long term (current) use of opiate analgesic; Z79.899 Other long term (current) drug therapy
CPT/HCPCS: 71045; 64633; 64634; J2250; J1030; J3010; J2795

== ENCOUNTER 2021-02-09 07:16 | Day surgery (SDC) | payer MEDICARE, OTHER ==
[2021-02-07 15:34] VITALS: BMI 35.9
[2021-02-09 07:38] VITALS: TEMP 97.8
[2021-02-09] MEDS ORDERED: LACTATED RINGERS 1,000 ML IV ONE (07:38)
[2021-02-09] MEDS ORDERED: LIDOCAINE 1% (10MG/ML) FOR IV START INTRADERMA ONE (07:39)
[2021-02-09 07:41] LABS: Glucose,Whole Blood 129 mg/dL (75-99)
[2021-02-09] MEDS ORDERED: SCOPOLAMINE 1.5MG/72HR PATCH TRANSDERM ONE (07:42)
[2021-02-09] MEDS ORDERED: LIDOCAINE 1% INJ 10MG/ML (20 ML MDV) ONE (08:00)
[2021-02-09] MEDS ORDERED: ROPIVACAINE 5MG/ML 20ML VIAL ONE (08:00)
[2021-02-09] MEDS ORDERED: IV FLUID CONTINUATION 1,000 ML IV ONE (08:26)
[2021-02-09 08:35] VITALS: RESP 18
[2021-02-09 08:46] VITALS: BP 127/67; PULSE 67
--- NOTE | 2021-02-09 09:44 | FL ---
Fluoroscopy HISTORY: Pain 21 seconds fluoroscopy time supplied to the referring clinician. 2 intraoperative C-arm images docum ent the procedure. See dictated report from anesthesia.
--- NOTE | 2021-02-12 09:18 | P.PCN ---
Date of Procedure: 02/09/21 Description of Procedure: PREOPERATIVE DIAGNOSIS: 1-Thoracic Spondylosis with Facet Arthropathy without myelopathy. POSTOPERATIVE DIAGNOSIS: 1- Thoracic Spondylosis with Facet Arthropathy without myelopathy. PROCEDURES : right Radiofrequency thermocoagulation, T7 , T8 , and T9 medial branch, with fluoroscopic guidance (fluoroscopy images available in the radiology department) ( To denervate the facet joint at right T7- 8 and T8- 9 ). ANESTHESIA: none as patient had eaten chocolate at 530 am EBL: Minimal PROCEDURE INDICATION: The patient with low back pain secondary to thoracic facet arthropathy PROCEDURE DESCRIPTION / TECHNIQUE: The patient was seen and identified in the preoperative area. Risks, benefits, complications, including but not limited to risk of infection ,bleeding , allergic reactions to the medications and no complete pain releife , and alternatives were discussed with the patient, the patient agreed to proceed with the procedure and signed the consent. IV was started. Vital signs remained stable throughout the procedure. Patient was taken to the OR and time out was completed. The patient was placed in the prone position on the procedure table. The lumber area was prepped and draped in the usual sterile fashion. . Vital signs were closely monitored during the procedure . Using AP and then oblique fluoroscopy, the ``eye of the Rubens dog corresponding to the connection between the superior and transverse articular processes of right T7,T8 ,T9, were identified, marked, and localized with 1% lidocaine. Subsequently, a 20 [id number] radiofrequency cannula with a 10-mm active tip was advanced guided by fluoroscopy to each of the`eyes of the Rubens dog at right T7 ,T8 ,T9 . Each site then underwent sensory testing at 50 Hz and 0 to 1 volt and motor testing at 2.5 Hz and 0 to 3 volt with local stimulation, but no radicular symptoms down the legs. Thereafter each sites underwent radiofrequency thermocoagulation at 80 degrees celsius for 90 seconds after injecting 0.5 ml of PF Ropivacaine 1ml, then after the thermocoagulation done , 3 ml of Ropivacaine 0.5% was injected at the right T7 ,T8 ,T9 , levels after negative aspiration of CSF and blood and with no paresthesias. Cannulas were retracted while injecting lidocaine 1% until the needle is out. . At the end of the procedure, the skin was cleansed and bandages were applied. COMPLICATIONS: No acute complications. DISPOSITION / PLANS: The patient was placed in a supine position and transferred to the recovery area in a stable condition for observation and was discharged from the recovery room after meeting discharge criteria. Home discharge instructions given to the patient by the staff. The patient was reexamined prior to discharge. The patient will schedule a follow up in the clinic in 2-4 weeks.
== END 2021-02-09 08:58 | disposition home or self-care (01) ==
LOC: ORPAIN 07:16
PROVIDERS: ATTEND Anesthesiology
DX: M47.814 Spondylosis without myelopathy or radiculopathy, thoracic region (principal); E11.9 Type 2 diabetes mellitus without complications
CPT/HCPCS: 64633; 64634; J2001; J2795

== ENCOUNTER → 2021-05-16 | Outpatient (CLI) | payer MEDICARE, OTHER ==
[2021-05-16 14:01] VITALS: BP 99/64; PULSE 77; RESP 18; TEMP 98.1
--- NOTE | 2021-05-16 14:25 | P.PN ---
Subjective Progress Note Date: 05/16/21 This is a 50-year-old lady with history of mid and lower back pain. The pa rogelio received thoracic medial branch RFA which gave her 40-50% of pain relief in the mid back area and she is very happy with the results. The patient complains of lower back pain with no radiation to the lower extremities however she does feel numbness in both legs and she is following up with neurology about that. The patient would like us to address this lower back pain because it is affecting her activities negatively. The patient feels dizzy due to hypoglycemia as she states. Patient denies new-onset weakness, bowel/bladder incontinence, or any other signs or symptoms of cauda equina syndrome. There are no signs of acute intoxication, and no indications of medication diversion or overuse. In addition to above, 13-point review of systems is also negative for chest pain, shortness of breath, changes in vision, changes in hearing, new onset weakness, abdominal pain, diarrhea, extreme fatigue, malaise, fever, skin changes, homicidal or suicidal ideation, or bowel or bladder incontinence. Vital Signs: Reviewed in EMR Gen: AAOx3, NAD HEENT: PERRLA,hearing grossly normal Pulm: resp unlabored Neck: supple, trachea midline Neuro exam of the lower extremities:Decreased muscle strength to 4 out of 5 for knee flexion and extension and normal ankle flexion and extension bilaterally . Straight leg raising test: Camron's test: Range of motion of the lumbar spine: Facet loading test:Positive on the lumbar area bilaterally Tenderness in the paravertebral musculature:Positive on the lumbar area bilaterally Neuro: CN II-XII grossly intact, Imaging: Reviewed in EMR/chart Assessment: Lumbar spondylosis without myelopathy Paresthesia in the lower extremities of unknown Diabetes Plan: 1. Explanation: When patients on opioids, opioid and psychological risk scores were reviewed. Diagnoses, prognoses, and multiple treatment options including but not limited to physical therapy, interventional therapies, adjuvant medical therapies, narcotic medication therapies, and surgery were discussed with the patient and all questions were answered to the patient's satisfaction. 2. Opioid agreement:When patients are prescribed opoids through our clinic, opioid agreement is signed with the patient and the patient is warned not to use opioids while driving or before driving and not to combine opioids with benzodiazepines or alcohol. 3. Counseling: When patient is smoking or obese, the patient was counseled extensively on SMOKING CESSATION, BODY MASS INDEX, EXERCISE. Specifically, the patient was instructed regarding the importance of smoking cessation, obesity, and exercise in the context of both chronic pain and overall health. 4. Procedures: Schedule for diagnostic lumbar medial branch block for levels L4 5 and L5-S1 bilaterally under fluoroscopic guidance 5. Consultations: None. I did an Accu-Chek during her visit ,which came back as 142 mg/dl. 6. Investigations: None 7. Medications: None prescribed 8. Disposition: Proceed with the above-mentioned procedure as soon as possible 9. Maps were reviewed and were appropriate. Objective - Vital Signs Vital signs: Vital Signs Temp 98.1 F 05/16/21 13:56 Pulse 77 05/16/21 13:56 Resp 18 05/16/21 13:56 BP 99/64 05/16/21 13:56 Pulse Ox 96 05/16/21 13:56 Intake & Output 05/15/21 05/16/21 05/16/21 18:59 06:59 18:59 Weight 81.647 kg
[2021-05-16 14:28] LABS: Glucose,Whole Blood 142 mg/dL (75-99)
== END ==
LOC: PNWHC3 13:48
PROVIDERS: ATTEND Anesthesiology
DX: M47.816 Spondylosis without myelopathy or radiculopathy, lumbar region (principal); R20.2 Paresthesia of skin; E11.9 Type 2 diabetes mellitus without complications; Z91.018 Allergy to other foods; Z88.8 Allergy status to other drugs, medicaments and biological substances; Z91.040 Latex allergy status
CPT/HCPCS: 99211

== ENCOUNTER 2021-06-08 12:00 | Day surgery (SDC) | payer MEDICARE, OTHER ==
[2021-06-06 10:05] VITALS: BMI 35.2
[2021-06-08 12:11] VITALS: TEMP 98.4
[2021-06-08 12:22] LABS: Glucose,Whole Blood 148 mg/dL (75-99)
[2021-06-08] MEDS ORDERED: ONDANSETRON 4 MG/2 ML VIAL IVP ONE (12:25)
[2021-06-08] MEDS ORDERED: DEXAMETHASONE SOD PHOSPHATE 4 MG/ML 1 ML VIAL IVP ONE (12:26)
[2021-06-08] MEDS ORDERED: ONDANSETRON 4 MG/2 ML VIAL ONE (12:27)
[2021-06-08] MEDS ORDERED: PROPOFOL 10 MG/ML 20 ML VIAL IV ONE (13:05)
[2021-06-08] MEDS ORDERED: methylPREDNISolone ACETATE 40 MG/ML 1 ML VIAL ONE (13:05)
[2021-06-08] MEDS ORDERED: fentaNYL (PF) 50 MCG/ML 2 ML AMP ONE (13:05)
[2021-06-08] MEDS ORDERED: MIDAZOLAM 2 MG/2 ML VIAL ONE (13:05)
[2021-06-08] MEDS ORDERED: ROPIVACAINE 5MG/ML 20ML VIAL ONE (13:05)
--- NOTE | 2021-06-08 13:41 | P.PCN ---
Date of Procedure: 06/08/21 Procedure(s) Performed: PREOPERATIVE DIAGNOSIS: 1-Lumbar Spondylosis with Facet Arthropathy without myelopathy. 2- Lumber degenerative disc disease. POSTOPERATIVE DIAGNOSIS: 1- Lumbar Spondylosis with Facet Arthropathy without myelopathy. 2- Lumber degenerative disc disease. PROCEDURES : Bilateral Radiofrequency thermocoagulation, L3 , L4 , and L5 medial branch, with fluoroscopic guidance (fluoroscopy images available in the radiology department) ( to denervate the facet joint at bilateral L4-5 ,and L5-S1 levels ). ANESTHESIA: Monitored anesthesia care as per anesthesia department . EBL: Minimal PROCEDURE INDICATION: The patient with low back pain secondary to lumbar facet arthropathy who had more than 50% relief of her pain with previous diagnostic lumbar medial branch block with bupivacaine, had the RFA of the medial branch lumbar area done by Dr Sifuentes at [facility], and had excellent pain relief and she is here for repeat RFA of the medial branch lumbar area PROCEDURE DESCRIPTION / TECHNIQUE: The patient was seen and identified in the preoperative area. Risks, benefits, complications, including but not limited to risk of infection ,bleeding , allergic reactions to the medications and no complete pain releife , and alternatives were discussed with the patient, the patient agreed to proceed with the procedure and signed the consent. IV was started. Vital signs remained stable throughout the procedure. Patient was taken to the OR and time out was completed. The patient was placed in the prone position on the procedure table. The lumber area was prepped and draped in the usual sterile fashion. . Vital signs were closely monitored during the procedure .IV sedation was used during the procedure to decrease patients anxiety. Using AP and then oblique fluoroscopy, the ``eye of the Rubens dog correspo nding to the connection between the superior and transverse articular processes of right L3, L4, and L5 were identified, marked, and localized with 1% lidocaine. Subsequently, a 18 [id number] radiofrequency cannula with a 10-mm active tip was advanced guided by fluoroscopy to each of the``eyes of the Rubens dog at right L3, L4, and L5. Each site then underwent sensory testing at 50 Hz and 0 to 1 volt and motor testing at 2.5 Hz and 0 to 3 volt with local stimulation, but no radicular symptoms down the legs. Thereafter each sites underwent radiofrequency thermocoagulation at 80 degrees celsius for 90 seconds after injecting 0.5 ml of PF Ropivacaine 1ml, then after the thermocoagulation done , 1 ml of the block solution containing Depo-Medrol 20 mg and 3 ml of Ropivacaine 0.5% was injected at the right L3 , L4 , and L5 , levels after negative aspiration of CSF and blood and with no paresthesias. Cannulas were retracted while injecting lidocaine 1% until the needle is out. The same procedure was repeated at the level of Left L3, L4, and L5 levels. At the end of the procedure, the skin was cleansed and bandages were applied. COMPLICATIONS: No acute complications. DISPOSITION / PLANS: The patient was placed in a supine position and transferred to the recovery area in a stable condition for observation and was discharged from the recovery room after meeting discharge criteria. Home discharge instructions given to the patient by the staff. The patient was reexamined prior to discharge. The patient will schedule a follow up in the clinic in 2-4 weeks.
[2021-06-08] MEDS ORDERED: IV FLUID CONTINUATION 450 ML IV ONE (13:43)
--- NOTE | 2021-06-08 13:59 | FL ---
EXAMINATION TYPE: FL guided pain mgmt statistic DATE OF EXAM: 06/08/2021 HISTORY: Fluoroscopy time 16 seconds of fluoroscopy provided. IMPRESSION: 1. Fluoroscopy time.
[2021-06-08 14:04] VITALS: BP 116/77; PULSE 62; RESP 20
== END 2021-06-08 14:24 | disposition home or self-care (01) ==
LOC: ORPAIN 12:00
PROVIDERS: ATTEND Specialist
DX: M47.816 Spondylosis without myelopathy or radiculopathy, lumbar region (principal); R56.9 Unspecified convulsions; K21.9 Gastro-esophageal reflux disease without esophagitis
CPT/HCPCS: 64635; 64636 ×2; J2250; J1030; J1100; J2405; J3010; J2704; J2795

== ENCOUNTER → 2021-06-27 | Outpatient (CLI) | payer MEDICARE, OTHER ==
--- NOTE | 2021-06-28 08:54 | MM ---
Reason for exam: follow-up at short interval from prior study. Last mammogram was performed 11 months ago. History: Patient is postmenopausal. Family history of breast cancer in maternal aunt. Benign US biopsy breast VAD RT of the right breast, October 27, 2017. Benign US biopsy breast add'l VAD RT of the right breast, October 27, 2017. Took hormonal contraceptives for 2 years beginning at age 14. Physical Findings: Nurse did not find any significant physical abnormalities on exam. MG 3D Diag Mammo Wo Cad WINNIE Bilateral CC and MLO view(s) were taken. Prior study comparison: July 28, 2020, bilateral MG 3d diag mammo w/cad WINNIE. October 27, 2017, right breast MG diagnostic mammo RT wo CAD. There are scattered fibroglandular densities. There is chronic nodularity in the left breast. No significant new findings when compared with previous films. These results were verbally communicated with the patient and result sheet given to the patient on 06/27/21. ASSESSMENT: Incomplete: need additional imaging evaluation, BI-RAD 0 RECOMMENDATION: Ultrasound of both breasts. Manage patient on a clinical basis.
--- NOTE | 2021-06-28 08:56 | USB ---
Reason for exam: additional evaluation requested from abnormal screening. History: Patient is postmenopausal. Family history of breast cancer in maternal aunt. Benign US biopsy breast VAD RT of the right breast, October 27, 2017. Benign US biopsy breast add'l VAD RT of the right breast, October 27, 2017. Took hormonal contraceptives for 2 years beginning at age 14. US Breast Limited BILAT Left limited breast ultrasound including focal area of concern, retroareolar and axilla demonstrates a 0.6 x 0.4 x 0.5cm oval, cystic cluster at 3 o'clock and a 0.8 x 0.4 x 0.8cm oval, hypoechoic lesion at 6 o'clock. Right limited breast ultrasound including focal area of concern, retroareolar and axilla demonstrates a 0.5 x 0.3 x 0.7cm oval, cystic cluster at 6 o'clock. These results were verbally communicated with the patient and result sheet given to the patient on 06/27/21. ASSESSMENT: Benign, BI-RAD 2 RECOMMENDATION: Routine screening mammogram of both breasts in 1 year.
== END | disposition home or self-care (01) ==
LOC: RADMAMWWP 13:52
PROVIDERS: ATTEND Family Medicine
DX: R92.8 Other abnormal and inconclusive findings on diagnostic imaging of breast (principal); N60.01 Solitary cyst of right breast; Z80.3 Family history of malignant neoplasm of breast; Z78.0 Asymptomatic menopausal state
CPT/HCPCS: 77066; 76642; G0279; 77062

== ENCOUNTER → 2021-07-04 | Outpatient (CLI) | payer MEDICARE, OTHER ==
[2021-07-04 12:47] VITALS: BP 108/65; PULSE 76; RESP 18; TEMP 98.3
--- NOTE | 2021-07-04 13:10 | P.PN ---
Subjective Progress Note Date: 07/04/21 This is a 50-year-old morbidly obese lady with history of chronic mid and l ower back pain with mild neck pain occasionally. The patient had cervical fusion however her neck pain is under control. She still complains of mid and lower back pain. She had RFA on the thoracic medial branches and her pain has improved. She still takes tramadol 50 mg 4 times a day however recently her physician wanted to wean her off of tramadol and put her on Sonora and stated that she had side effects to Sonora. Her primary care physician would like us to take over her prescriptions for her pain. Patient denies new-onset weakness, bowel/bladder incontinence, or any other signs or symptoms of cauda equina syndrome. There are no signs of acute intoxication, and no indications of medication diversion or overuse. In addition to above, 13-point review of systems is also negative for chest pain, shortness of breath, changes in vision, changes in hearing, new onset weakness, abdominal pain, diarrhea, extreme fatigue, malaise, fever, skin changes, homicidal or suicidal ideation, or bowel or bladder incontinence. 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 Explanation: When patients on opioids, opioid and psychological risk scores were reviewed. Diagnoses, prognoses, and multiple treatment options including but not limited to physical therapy, interventional therapies, adjuvant medical therapies, narcotic medication therapies, and surgery were discussed with the patient and all questions were answered to the patient's satisfaction. 2. Opioid agreement:When patients are prescribed opoids through our clinic, opioid agreement is signed with the patient and the patient is warned not to use opioids while driving or before driving and not to combine opioids with benzodiazepines or alcohol. 3. Counseling: When patient is smoking or obese, the patient was counseled extensively on SMOKING CESSATION, BODY MASS INDEX, EXERCISE. Specifically, the patient was instructed regarding the importance of smoking cessation, obesity, and exercise in the context of both chronic pain and overall health. 4. Procedures: None for now 5. Consultations: None 6. Investigations: None 7. Medications: We will take over prescription for tramadol however the patient understands that we have to wean her down on tramadol as much as we can. I'll go down on the dose from 4 pills a day to 3 pills a day and I'll give her prescription for tramadol 50 mg #90 pills for 1 month we will see her on her next visit we will go further down the tramadol probably to 60 pills per month. 8. Disposition: Return to clinic in 4 weeks . We will do urine drug screen on her next visit. 9. Maps were reviewed , she received 45 pills of Sonora 5 mg on 06/12/2021 and tramadol 50 mg 30 pills on 05/23/2021 plus Lyrica 200 mg #90 pills on 06/11/2021.. PQRS measures: 1-Patient's medications are documented in the chart. 2-Tobacco use is negative, counseling given 3-Patient has had a pneumococcal vaccine. 4-Advanced care planning discussed, patient unable to give 5-Opioid contract signed with the patient. 6-Pain positive, follow-up visit or procedure scheduled 7-Patient's blood pressure measured and documented within normal limits. The patient will follow up with his primary care physician. 8-Patient's weight was measured, and body mass index ABOVE the normal limits, and counseling was done. Patient instructed to follow up with PCP. 9-Patient WAS NOT identified as an unhealthy alcohol user. Controlled Substance Measures Is patient prescribed a controlled substance at discharge?: Yes When asked, does pt state using other controlled substances?: No If prescribed controlled substance>3 days was MAPS reviewed?: Yes If Rx opioid, was Start Talking consent form obtained?: Yes If opioid is for acute pain is fill amount 7 days or less?: No Was information provided regarding opioid addiction?: Yes Objective - Vital Signs Vital signs: Vital Signs Temp 98.3 F 07/04/21 12:43 Pulse 76 07/04/21 12:43 Resp 18 07/04/21 12:43 BP 108/65 07/04/21 12:43 Pulse Ox 95 07/04/21 12:43
== END ==
LOC: PNWHC3 12:35
PROVIDERS: ATTEND Anesthesiology
DX: M47.814 Spondylosis without myelopathy or radiculopathy, thoracic region (principal); M47.816 Spondylosis without myelopathy or radiculopathy, lumbar region; E66.01 Morbid (severe) obesity due to excess calories; E11.9 Type 2 diabetes mellitus without complications; Z98.1 Arthrodesis status; Z68.35 Body mass index [BMI] 35.0-35.9, adult; F17.200 Nicotine dependence, unspecified, uncomplicated; Z91.040 Latex allergy status; Z91.018 Allergy to other foods; Z88.8 Allergy status to other drugs, medicaments and biological substances
CPT/HCPCS: 99211

== ENCOUNTER → 2021-08-01 | Outpatient (CLI) | payer MEDICARE, OTHER ==
[2021-08-01 11:25] VITALS: BP 105/73; PULSE 74; RESP 18
== END ==
LOC: PNWHC3 11:10
PROVIDERS: ATTEND Specialist
DX: M47.814 Spondylosis without myelopathy or radiculopathy, thoracic region (principal); M47.816 Spondylosis without myelopathy or radiculopathy, lumbar region; F17.200 Nicotine dependence, unspecified, uncomplicated; Z91.040 Latex allergy status; Z88.1 Allergy status to other antibiotic agents; Z91.02 Food additives allergy status
CPT/HCPCS: 80307; G0482; G0463; 99211; 99212

== ENCOUNTER 2021-08-29 06:49 | Day surgery (SDC) | payer MEDICARE, OTHER ==
--- NOTE | 2021-08-01 11:54 | P.PN ---
Subjective Progress Note Date: 08/01/21 This is follow up visit for this 50 years old female with chronic history of severe neck pain ,and mid back pain ,and low back pain, patient had the cervical fusion surgery , previously we have done RFA of the medial branch thoracic area , and RFA of the medial branch lumbar area,, currently she is complaining of severe mid back pain which is increased with any activity interference with her quality of life, she denies any motor or sensory deficit she denies any fever or night sweats and she'll continue to use pain medication Lyrica 200 mg 3 times a day and Ultram 50 mg every 6 hours ,she denies any side effect of the medication Physical Examinations : -Constitutiona : Cooperative , not in acute distress . -HEENT : nech : supple , no Lymphadenopathy , normal thyroid size . : eyes : no ptosis , no icterus, no photophobia . - neurologic : Cranial nerve II to XII intact , no focal neurological deffecit . -psychatric : alert , oriented X 3 , appropriate affect , intact judgment and insight . -Lymphatic : no Lymphadenopathy . - musculoskeltal : Cervical Spine motor stregnth in the deltoid and biceps, normal right side , normal Left side motor stregnth biceps and the wrist extensors normal right side ,normal left side . motor stregnth in the triceps muscle . normal Right side , normal Left side deep tendon reflexes normal at the biceps , normal at Brachioradialis , normal at triceps. cervical facet loading test: Positive Bilaterally Spurling test= positive Right , positive left. Neck distraction test= positive Right , positive left. Ngoc sign= positive right, positive left . Thoracic spine= Positive facet loading test in the thoracic area from T6 to T12 Flexion and extension of the thoracic spine associated with severe pain Lumber spine moter stegnth lower extremities ,thigh and legs 5/5 Right side , 5/5 Left side Assessment and Plan Plan: Assessment and plan=1-thoracic spondylosis with thoracic facet arthropathy without myelopathy Will schedule patient to have RFA of the medial branch at left T7 , T8 , T9 started on the one side and will do the other side and later 2-lumbar spondylosis with lumbar facet arthropathy low back pain improved after RFA She isn't given prescriptions refilled for Ultram 50 mg every 6 hours as 120 with one refill Lyrica 200 mg 3 times a day dispense 90 with 1 refill MAPS reviewed and it was appropriate UDS ordered today PQRS Measure Charge Sheet Measure #130: Documentation of Current Meds in Medical Chart: Patient's medications documented in chart Measure #226: Tobacco Use: Screen & Cessation Intervention: Pt screened for tobacco use AND intervention given Measure #111: Pneumonia Vaccination: Pneumococcal vaccine NOT administered or previously given Measure #47: Advance Care Plan: Advance care planning discussed & documented, pt chose/unable to give Measure #412: Opioid Treatment Agreement: No documentation of signed opioid treatment agreement Measure #408: Opioid Therapy Follow-up Evaluation: Patient had NO f/u eval minimum every 3 months during opioid therapy Measure #317: Preventitive Care & Scrn High Bld Press & F/U: Normal blood pressure, f/u not required Measure #128: Body Mass Index (BMI) Screening & Follow-up: BMI documented ABOVE normal parameters - f/u documented Measure #131: Pain Assessment & Follow-up: Follow-up scheduled Measure #431: Unhealthy Alcohol Use Preventative Care & Scrn: Patient not identified as an unhealthy alcohol user PQRS Narrative:
[2021-08-27 09:33] VITALS: BMI 35.2
[~2021-08-29 06:49] MED LIST changes: +LIDOCAINE 1% (10MG/ML) FOR IV START INTRADERMA PRN
[2021-08-29 07:09] VITALS: RESP 16; TEMP 96.1
[2021-08-29 07:11] LABS: Glucose,Whole Blood 128 mg/dL (75-99)
[2021-08-29] MEDS ORDERED: LIDOCAINE 1% INJ 10MG/ML (20 ML MDV) ONE (07:11)
[2021-08-29] MEDS ORDERED: PROPOFOL 10 MG/ML 20 ML VIAL IV ONE (07:11)
--- NOTE | 2021-08-29 07:30 | P.PCN ---
Date of Procedure: 08/29/21 Procedure(s) Performed: Brief history: Patient is a pleasant 51-year-old white female scheduled for an elective upper endoscopy as well as colonoscopy as a part of evaluation of worsening GERD for the last 6 months duration. History of gastric sleeve surgery in 2013 was repaired 2019 and since then has been having worsening symptoms. She also scheduled for screening colonoscopy today. Procedure performed: Esophagogastroduodenoscopy Colonoscopy Preoperative diagnosis: GERD Screening for colon cancer Anesthesia: MAC Procedure: After informed consent was obtained from the patient was brought into the endoscopy unit and IV sedation was administered by anesthesia under continuous monitoring. Initially upper endoscopy was done. The Olympus GF 160 video endoscope was inserted inserted into the mouth and esophagus intubated without any difficulty and was gradually advanced into the stomach and duodenum and carefully examined. The bulb and second part of the duodenum appeared normal. The scope was then withdrawn into the stomach adequately insufflated with air and upon careful examination the antrum appeared normal. There is evidence of gastric sleeve surgery identified and the mucosa in the gastric sleeve appeared normal. The scope was then withdrawn into the esophagus. The GE junction was located at 38 cm to the incisors. a 2 cm hiatal hernia was noted. The GE junction appeared irregular with superficial erosions consistent with LA grade B reflux esophagitis Rest of the esophagus appeared normal. Patient tolerated the procedure well. At this time the patient continued to remain sedation. Initial digital rectal examination was normal. Olympus CF 160 video colonoscope was then inserted into the rectum and gradually advanced to the cecum without any difficulty. Careful examination was performed as the scope was gradually being withdrawn. The prep was excellent. The cecum, ascending colon, appeared normal. In the hepatic flexure there was a 5 mm polyp that was removed by snare polypectomy. In the transverse colon there was a 1 cm polyp removed by snare polypectomy. Rest of the transverse colon, descending colon, sigmoid colon and rectum appeared normal. in the rectum there was a 3 mm polyp that was removed by cold biopsy. Retroflexion was performed in the rectum and no lesions were noted. Patient tolerated the procedure well. Impression: 1. Upper endoscopy revealed small hiatal hernia and LA grade B reflux esophagitis and evidence of previous gastric sleeve surgery 2. Colonoscopy revealed: 5 mm hepatic flexure polyp status post polypectomy 1 cm transverse colon polyp status post polypectomy 3 mm rectal polyp status post biopsy Recommendations: Findings of this examination were discussed with the patient as well juice family. He was advised to continue with omeprazole 40 mg twice daily and follow antireflux measures. She was advised to follow with the biopsy results. If the biopsy results adenoma she can have a repeat colonoscopy in 3 years
[2021-08-29 07:47] VITALS: BP 120/79; PULSE 56
== END 2021-08-29 08:16 | disposition home or self-care (01) ==
LOC: ORWHC2ENDO 06:49
PROVIDERS: ATTEND Internal Medicine Gastroenterology
DX: Z12.11 Encounter for screening for malignant neoplasm of colon (principal); D12.3 Benign neoplasm of transverse colon; D12.8 Benign neoplasm of rectum; K21.00 Gastro-esophageal reflux disease with esophagitis, without bleeding; K44.9 Diaphragmatic hernia without obstruction or gangrene; Z98.84 Bariatric surgery status
CPT/HCPCS: 45385; 43235; 88305; J2001; J2704

== ENCOUNTER 2021-09-28 09:13 | Day surgery (SDC) | payer MEDICARE, OTHER ==
[2021-09-26 12:07] VITALS: BMI 34.7
[2021-09-28 09:52] VITALS: RESP 16; TEMP 97
[2021-09-28] MEDS ORDERED: LACTATED RINGERS 1,000 ML IV ONE ×2 (09:58)
[2021-09-28 09:59] LABS: Glucose,Whole Blood 122 mg/dL (75-99)
[2021-09-28] MEDS ORDERED: ROPIVACAINE 5MG/ML 20ML VIAL ONE (10:00)
[2021-09-28] MEDS ORDERED: MIDAZOLAM 2 MG/2 ML VIAL ONE (10:00)
[2021-09-28] MEDS ORDERED: TRIAMCINOLONE ACETONIDE 40 MG/ML 1 ML VIAL ONE (10:00)
[2021-09-28] MEDS ORDERED: .fentaNYL (PF) 50 MCG/ML 2 ML AMP ONE (10:00)
[2021-09-28] MEDS ORDERED: ONDANSETRON 4 MG/2 ML VIAL ONE (10:00)
--- NOTE | 2021-09-28 10:25 | P.PCN ---
Date of Procedure: 09/28/21 Procedure(s) Performed: PREOPERATIVE DIAGNOSIS: 1-Thoracic Spondylosis with Facet Arthropathy without myelopathy. POSTOPERATIVE DIAGNOSIS: 1- Thoracic Spondylosis with Facet Arthropathy without myelopathy. PROCEDURES : Left Radiofrequency thermocoagulation, T7 , T8 , and T9 medial br anch, with fluoroscopic guidance (fluoroscopy images available in the radiology department) ( To denervate the facet joint at left T7- 8 and T8- 9 ). ANESTHESIA: Monitored anesthesia care as per anesthesia department . EBL: Minimal PROCEDURE INDICATION: The patient with low back pain secondary to lumbar facet arthropathy who had more than 50% relief of her pain with previous diagnostic lumbar medial branch block with bupivacaine. PROCEDURE DESCRIPTION / TECHNIQUE: The patient was seen and identified in the preoperative area. Risks, benefits, complications, including but not limited to risk of infection ,bleeding , allergic reactions to the medications and no complete pain releife , and alternatives were discussed with the patient, the patient agreed to proceed with the procedure and signed the consent. IV was started. Vital signs remained stable throughout the procedure. Patient was taken to the OR and time out was completed. The patient was placed in the prone position on the procedure table. The lumber area was prepped and draped in the usual sterile fashion. . Vital signs were closely monitored during the procedure .IV sedation was used during the procedure to decrease patients anxiety. Using AP and then oblique fluoroscopy, the ``eye of the Rubens dog corresponding to the connection between the superior and transverse articular processes of left T7,T8 ,T9, were identified, marked, and localized with 1% lidocaine. Subsequently, a 20 [id number]-[id number] radiofrequency cannula with a 10-mm active tip was advanced guided by fluoroscopy to each of the``eyes of the Rubens dog at Left T7 ,T8 ,T9 . Each site then underwent sensory testing at 50 Hz and 0 to 1 volt and motor testing at 2.5 Hz and 0 to 3 volt with local stimulation, but no radicular symptoms down the legs. Thereafter each sites underwent radiofrequency thermocoagulation at 80 degrees celsius for 90 seconds after injecting 0.5 ml of PF Ropivacaine 1ml, then after the thermocoagulation done , 1 ml of the block solution containing Kenalog 40 mg and 3 ml of Ropivacaine 0.5% was injected at the left T7 ,T8 ,T9 , levels after negative aspiration of CSF and blood and with no paresthesias. Cannulas were retracted while injecting lidocaine 1% until the needle is out. . At the end of the procedure, the skin was cleansed and bandages were applied. COMPLICATIONS: No acute complications. DISPOSITION / PLANS: The patient was placed in a supine position and transferred to the recovery area in a stable condition for observation and was discharged from the recovery room after meeting discharge criteria. Home discharge instructions given to the patient by the staff. The patient was reexamined prior to discharge. The patient will schedule a follow up in the clinic in 2-4 weeks.
[2021-09-28 10:48] VITALS: BP 115/73; PULSE 72
--- NOTE | 2021-09-28 11:52 | XR ---
EXAMINATION TYPE: XR chest 1V portable DATE OF EXAM: 09/28/2021 COMPARISON: Chest x-ray dated 12/22/2020 HISTORY: Pneumothorax, status post needle placement, abnormal chest x-ray TECHNIQUE: Single frontal view of the chest is obtained. FINDINGS: Postop changes are noted the cervical spine. There is no evident pneumothorax, airspace di sease, or pleural effusion. Cardiac mediastinal silhouette is stable. Bones are unchanged. Aorta is d ense. IMPRESSION: No evident complication status post needle placement.
[2021-09-28] MEDS ORDERED: IV FLUID CONTINUATION 1,000 ML IV ONE (11:55)
--- NOTE | 2021-09-28 14:29 | FL ---
Fluoroscopy HISTORY: Pain 21 seconds fluoroscopy time supplied to the referring clinician. 2 intraoperative C-arm images docum ent the procedure. See dictated report from anesthesia.
== END 2021-09-28 12:05 | disposition home or self-care (01) ==
LOC: ORPAIN 09:13
PROVIDERS: ATTEND Specialist
DX: M47.9 Spondylosis, unspecified (principal); M47.14 Other spondylosis with myelopathy, thoracic region
CPT/HCPCS: 64633; 64634; 71045; J2250; J3301; J2405; J3010; J2795

== ENCOUNTER → 2021-10-03 | Outpatient (CLI) | payer MEDICARE, OTHER ==
[2021-10-03 09:21] VITALS: RESP 18
[2021-10-03 09:28] VITALS: BP 123/74; PULSE 74; TEMP 97.5
--- NOTE | 2021-10-03 10:09 | P.PAINPG ---
Subjective Progress Note Date: 10/03/21 Principal diagnosis: Lumbar, and thoracic back pain Ms. Mireles is a 51-year-old pleasant female came to the [facility] pain clinic for follow-up visit. Patient had thoracic radiofrequency ablation at T7 T8 T9 on the left side which helped her 100% pain relief in thoracic area. She is still complaining pain in her lower back, and joint areas. Patient has ongoing pain for many years. Patient urine drug screen positive for Lyrica, and tramadol, and cocaine metabolites. On discussion patient denied that taking cocaine but she is attributing that her neighbor uses cocaine. Patient describes pain is aching, throbbing, constant type of pain. Pain is not radiating to her lower extremities.. Patient rated pain levels are 6 out of 10 in severity. With the help of medications pain levels are 4-6 out of 10 in severity. Activities making pain worse. Medications, resting, intervention procedure, exercise helping in relieving patient's pain. Patient pain some days better than others. Overall activities decreased secondary to pain. Because of the pain sometimes patient is feeling lack of sleep, interest, and energy. Denied any side effects with the medications. Denied any bowel or bladder problems at this time. Patient denies any suicidal or homicidal ideations intent or plan. Patient denies any auditory or visual hallucinations. Patient denied any red flag symptoms related to pain. 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 Sensation grossly intact Lower extremity: Normal strength, and decreased range of motion secondary to pain Lumbar spine: Paravertebral tenderness: positive Lumbar facet load test : positive Sacroiliac joint tenderness: Negative Multiple trigger point positive lower thoracic, and lumbar area - Constitutional Constitutional Comment(s): 13 point review of symptoms negative except as mentioned in history of present illness Assessment and Plan Assessment: Lumbar spondylosis without myelopathy Thoracic spondylosis without myelopathy Myofascial pain syndrome, and chronic pain syndrome History of cocaine use Plan: 1 Opioid, and psychological risk tools, and scores were reviewed. Diagnoses, prognosis, and multiple treatment options including but not limited to physical therapy, interventional therapy, adjunct medication therapy, narcotic medication, and surgical options were discussed with the patient. And all questions were answered to the patient's satisfaction. #2 Opioid agreement: Patient was thoroughly discussed regarding the medication side effects, complications associated with narcotic use. Patient recommended do not drive while on narcotic medications, any other sedative medications, and illicit drugs including marijuana. Patient clearly understood. Patient has signed narcotic agreement and was again asked to re-read this document and will be given a copy to take home if requested. This document outlines the policies of the [facility]. It specifically counsels the patient to not misuse, overuse, abuse, divert, or sell medications, and to take them as prescribed by only one healthcare provider and store the medications in a safe and preferably locked location. This document also counsels against driving while using narcotic medications and also against using any alcohol or illicit or recreational drugs in conjunction with opioids. The patient verbalized understanding to staff that lack of compliance with any of the above will likely result in failure to renew narcotic prescriptions, possible discharge from the clinic, and possible legal ramifications thereafter. Patient clearly violated pain clinic opioid contract. #3 Patient was counseled on importance of regular exercise. Including ivett chi, aerobic exercises as tolerated. Which helps for chronic pain, and overall well- being. Patient also counseled regarding importance of weight control rolling chronic pain, and overall other health issues. By altering diet habits, minimizing sugar intake, and processed foods helps in minimizing Inflammation. Also discussed with the patient regarding intermittent fasting. #4 consultation: Addiction clinic consultation for chronic pain management, and history of cocaine use Neurosurgical consultation for chronic lumbar back pain, and Tarlov cyst #5 investigations: MAPS-reviewed , urine drug test- reviewed, and positive for cocaine metabolites along with Lyrica and tramadol #6 interventional procedures: None at this time #7 medications #1 No medications were given from pain clinic at this time secondary to her history of cocaine urine metabolites positive. #8 morphine milligrams equivalents dose ( MME) per day: 0 from the pain clinic #9 patient recommended to use TENS unit's, and percussion massage device #10 patient discharged from narcotic contract from the pain clinic. Patient recommended to conduct primary care physician or emergency if noticed any problems with Lyrica induced problems including seizures area patient had a few more leg was locked at home recommended her to gradually wean them off. Sudden discontinuation of Lyrica can increase the risk of seizures discussed with the patient. Time with Patient: Less than 30 PQRS Measure Charge Sheet Measure #130: Documentation of Current Meds in Medical Chart: Patient's medications documented in chart Measure #226: Tobacco Use: Screen & Cessation Intervention: Pt screened for tobacco use AND intervention given Measure #111: Pneumonia Vaccination: Pneumococcal vaccine NOT administered or previously given Measure #47: Advance Care Plan: Advance care planning discussed & documented, pt chose/unable to give Measure #412: Opioid Treatment Agreement: No documentation of signed opioid treatment agreement Measure #408: Opioid Therapy Follow-up Evaluation: Patient had NO f/u eval minimum every 3 months during opioid therapy Measure #317: Preventitive Care & Scrn High Bld Press & F/U: Normal blood pressure, f/u not required Measure #128: Body Mass Index (BMI) Screening & Follow-up: BMI documented ABOVE normal parameters - f/u documented Measure #131: Pain Assessment & Follow-up: Pain positive & plan documented Measure #431: Unhealthy Alcohol Use Preventative Care & Scrn: Patient not identified as an unhealthy alcohol user Mode of Arrival: Ambulatory - Pain Location Lower Back Non-Pharmacological Interventions: Home Exercise, Stretching Pharmacological Interventions: Block, Medication, PRN Medication PQRS Narrative: Smoking Status Current every day smoker Blood Pressure 123/74 Pain Intensity [Lower Back] 7 Scale Used Numeric (1 - 10) Hx Alcohol Use (MH) No Home Medications: Ambulatory Orders Insulin Degludec [Tresiba Flextouch U-100 Pen] 60 unit SQ HS 05/11/18 Ergocalciferol [Vitamin D2 (DRISDOL)] 50,000 unit PO TU 03/22/20 Dapagliflozin Propanediol [Farxiga] 10 mg PO DAILY 08/16/20 Omeprazole [PriLOSEC] 40 mg PO DAILY 11/29/20 Glimepiride [Amaryl] 1 mg PO AC-BRKFST 02/07/21 Metoclopramide [Reglan] 5 mg PO AC-TID 03/09/21 Atorvastatin [Lipitor] 10 mg PO DAILY 06/06/21 L.acidoph,Paracasei, B.lactis [Probiotic] 1 each PO DAILY 06/06/21 Meloxicam [Mobic] 15 mg PO DAILY 06/06/21 Multivitamins, Thera [Multivitamin (formulary)] 1 tab PO DAILY 06/06/21 Pregabalin [Lyrica] 200 mg PO TID 08/27/21 traMADol HCL 50 mg PO Q6H PRN 08/27/21 Controlled Substance Measures - Controlled Substance Measures Is patient prescribed a controlled substance at discharge?: No
== END ==
LOC: PNWHC3 09:00
DX: M47.816 Spondylosis without myelopathy or radiculopathy, lumbar region (principal); M47.814 Spondylosis without myelopathy or radiculopathy, thoracic region; M79.18 Myalgia, other site; G89.4 Chronic pain syndrome; F17.200 Nicotine dependence, unspecified, uncomplicated; Z91.040 Latex allergy status; Z88.8 Allergy status to other drugs, medicaments and biological substances; Z91.02 Food additives allergy status
CPT/HCPCS: 99211

== ENCOUNTER → 2022-03-28 | Outpatient (CLI) | payer MEDICARE, OTHER ==
[2022-03-28 10:01] VITALS: BP 99/67; PULSE 70; RESP 18; TEMP 98.2
--- NOTE | 2022-03-28 10:07 | P.PAINPG ---
Objective - Vital Signs Vital signs: Intake & Output 03/27/22 03/28/22 03/28/22 18:59 06:59 18:59 Weight 81.647 kg PQRS Measure Charge Sheet Comment: A 51 yr old female with a history of severe and chronic mid to low back pain secondary to degenerative disc diseases and spondylosis with facet arthropathy presents today for evaluation of mid back pain. Pain level is currently at 5 out of 10 in intensity, localized to the center of her thoracic: And lumbar spine and she has been experiencing this on and off for several years. Pain is provoked as high as 9 out of 10 in intensity with walking for periods of 30 minutes or more, lifting/twisting/bending while performing ADLs at home. Pain is alleviated with medications (tramadol, mobility, Lyrica), topicals, injections in the past, repositioning and rest. Patient has not performed physical therapy, chiropractic treatments or a home-based exercise regimen. Patient was discharged from this clinic in June 2021 due to positive cocaine metabolites in her UDS. She was provided a script to an addiction clinic but she did not take the script when she walked out. Interventional pain procedures completed include L RFA T7-T8, T8-T9 Patient is currently on Tramadol, Lyrica, Mobic. Patient denies any side effects of the medication(s), denies excessive drowsiness or sleepiness, denies suicidal ideation and reports that the current pain medication is helping to control the pain and improve activities of daily living. Patient denies any motor or sensory deficits. Patient denies any fever or night sweats, denies any change in the bowel movements or urination. Physical Examination: -Constitutional: Cooperative. Not in acute distress . -HEENT: Neck is supple. No lymphadenopathy. No thyromegaly. Normal thyroid size. Eyes: No ptosis , no icterus, no photophobia. ENT: No auditory deficits. Normal oropharynx. No Thrush. - Respiratory: Chest clear to auscultations bilaterally. No wheezing. No rhonchi. - Cardiovascular: Regular rate and rhythm. S1 / S2 , no S3 , no S4. - Gastrointestinal: Abdomen soft no tenderness. Bowel sounds positive in all four quadrants. No organomegaly. - Genitourinary: Deferred. - Neurologic: Cranial nerve II to XII intact. No focal neurological deficits. - Psychatric: Alert & oriented x 3. Matching mood & appropriate affect. Judgment and insight intact. - Lymphatic: No Lymphadenopathy. - Musculoskeletal: Cervical spine: Muscle bulk/ tone/ strength in the bilateral upper extremities normal Vertebral body tenderness to palpation over Facet loading test positive Thoracic spine Muscle bulk / tone/ strength in the bilateral paraspinal muscles normal Vertebral body tender to palpation over Facet loading test positive Lumbar spine: Motor bulk/ tone/ strength lower extremities , thigh and legs : 5/5 Deep tendon reflexes : Normal Knee Jerk. Normal Ankle Jerk . Vertebral body tenderness to palpation over Lumbar Facet Loading Test positive BL L4-L5, L5-S1 with paraspinal TTP Straight Leg Raise: positive at 30 degrees right side/ left side Gaenslen's Test positive Sacral spine : Severe tenderness over the Sacroiliac joint: right side / left side Range of motion: Flexion of the lumbar spine <60 degrees Range of motion: Extension of the lumbar spine <20 degrees Gaenslen's Test positive Camron's Test positive Alana test: positive right side / left side Thigh Thrust Test Sacral Thrust Test Assessment and plan: Chronic low back pain secondary to lumbar degenerative disc disease , lumbar spondylosis with facet arthropathy without myelopathy Recommendation of BL RFA L4-L5, L5-S1. Pt has underwent this procedure multiple times since 2013 with documentation on record. Risks, benefits of procedure discussed and pt verbalized understanding. Denies anticoagulant use. Admits to a medical history of diabetes. Protocol for discontinuation of medications keisha procedure discussed. All patient questions answered MAPS reviewed and it was appropriate. I have spent 31 minutes on patient care today. Dr Spain was available by phone for the evaluation of this patient. The time was used to review the medical records including relevant urine studies and Prescription history (MAPs), review of the available imaging, evaluation and examination of the patient, coordination of care with the medical staff and if applicable referring physicians, as well as creation of the medical record - Pain Location Lower Non-Pharmacological Interventions: Inactivity, Relaxation Technique Pharmacological Interventions: Medication PQRS Narrative: Smoking Status Current every day smoker Pain Intensity [Lower] 8 Scale Used Numeric (1 - 10) Hx Alcohol Use (MH) No Home Medications: Ambulatory Orders Insulin Degludec [Tresiba Flextouch U-100 Pen] 60 unit SQ HS 05/11/18 Ergocalciferol [Vitamin D2 (DRISDOL)] 50,000 unit PO TU 03/22/20 Dapagliflozin Propanediol [Farxiga] 10 mg PO DAILY 08/16/20 Omeprazole [PriLOSEC] 40 mg PO DAILY 11/29/20 Glimepiride [Amaryl] 1 mg PO AC-BRKFST 02/07/21 Metoclopramide [Reglan] 5 mg PO AC-TID 03/09/21 Atorvastatin [Lipitor] 10 mg PO DAILY 06/06/21 L.acidoph,Paracasei, B.lactis [Probiotic] 1 each PO DAILY 06/06/21 Meloxicam [Mobic] 15 mg PO DAILY PRN 06/06/21 Multivitamins, Thera [Multivitamin (formulary)] 1 tab PO DAILY 06/06/21 Pregabalin [Lyrica] 200 mg PO TID 08/27/21 traMADol HCL 50 mg PO Q6H PRN 08/27/21 [place] (Unknown Dose) 2 tab PO DAILY 03/27/22 Desvenlafaxine Succinate [Desvenlafaxine Succinate ER] 25 mg PO DAILY 03/28/22 [place] Carbonate ER [Lithobid] 300 mg PO BID 03/28/22 OLANZapine [ZyPREXA] 2.5 mg pe PO DAILY 03/28/22 Controlled Substance Measures - Controlled Substance Measures Is patient prescribed a controlled substance at discharge?: No
== END ==
LOC: PNWHC3 09:36
PROVIDERS: ATTEND Specialist
DX: M51.36 Other intervertebral disc degeneration, lumbar region (principal); M47.816 Spondylosis without myelopathy or radiculopathy, lumbar region; G89.29 Other chronic pain; Z91.040 Latex allergy status; Z91.02 Food additives allergy status; Z88.8 Allergy status to other drugs, medicaments and biological substances; F17.200 Nicotine dependence, unspecified, uncomplicated
CPT/HCPCS: 99211

== ENCOUNTER 2022-05-03 11:25 | Day surgery (SDC) | payer MEDICARE, OTHER ==
[2022-05-03] MEDS ORDERED: LIDOCAINE 1% (10MG/ML) FOR IV START INTRADERMA ONE (12:00)
[2022-05-03] MEDS ORDERED: LACTATED RINGERS 1,000 ML IV ONE (12:00)
[2022-05-03 12:15] VITALS: RESP 16; TEMP 98.1
[2022-05-03 12:18] LABS: Glucose,Whole Blood 99 mg/dL (70-110)
[2022-05-03] MEDS ORDERED: ROPIVACAINE 5MG/ML 20ML VIAL ONE (12:22)
[2022-05-03] MEDS ORDERED: fentaNYL (PF) 50 MCG/ML 2 ML AMP ONE (12:22)
[2022-05-03] MEDS ORDERED: TRIAMCINOLONE ACETONIDE 40 MG/ML 1 ML VIAL ONE (12:22)
[2022-05-03] MEDS ORDERED: MIDAZOLAM 2 MG/2 ML VIAL ONE (12:22)
[2022-05-03] MEDS ORDERED: LACTATED RINGERS 1,000 ML IV SCH (12:30)
[2022-05-03] MEDS ORDERED: IV FLUID CONTINUATION 1,000 ML IV ONE ×2 (12:55)
--- NOTE | 2022-05-03 13:05 | FL ---
Fluoroscopy HISTORY: Pain 9 seconds fluoroscopy time supplied to the referring clinician. 8 intraoperative C-arm images docume nt the procedure. See dictated report from vascular surgery.
[2022-05-03 13:13] VITALS: BP 113/71; PULSE 66
--- NOTE | 2022-05-03 13:42 | P.PCN ---
Date of Procedure: 05/03/22 Description of Procedure: Pre- and Post-operative Diagnosis: Lumbar facet arthropathy, and lumbar spon dylosis without myelopathy. Procedure: Bilateral L4-5 radiofrequency thermocoagulation of medial branch under fluoroscopic guidance Bilateral L5-S1 dorsal ramus radiofrequency thermocoagulation under fluoroscopic guidance Surgeon: Roger Ardnt Anesthesia: Local: 1% Lidocaine, IV sedation : Midazolam 2 mg, and fentanyl 100 micrograms. Complications: None Estimated blood loss: None. Specimen removed: None Fluoroscopic image: Saved to patient electronic medical records. Indications for Procedure: The patient is well known to pain clinic for his chronic low back pain management. The lumbar facet loading test was positive with a clinical diagnosis of lumbar facet arthropathy. Patient had marked decrease in pain after the diagnostic medial branch procedure. Came here for radiofrequency ablation for longer pain relief. PROCEDURE DESCRIPTION: The patient was seen and identified in the preoperative area. Risks, benefits, complications, and alternatives were discussed with the patient. The patient agreed to proceed with the procedure and signed the consent. IV was started. Vital signs were stable. Patient was taken to the procedure room and timeout was completed. The patient was placed in the prone position on procedure table and a pillow was placed under the abdomen to reduce lumbar lordosis. The lumbosacral area was prepped and draped in the usual sterile fashion. Critical pause was taken. Vital signs were closely monitored during the procedure. The fluoroscopic camera was placed in the anteroposterior position to identify the junction of superior articular process and its corresponding injection with its transverse process of Right side L4, L5, S1, which were anesthetized with 1% lidocaine. We used 18-gauge 100-mm curved, sharp radiofrequency cannula with 10-mm active tip for the procedure. The first cannula was guided by fluoroscopy to the S1 superior articular process and its corresponding junction with its ala. The second cannula was guided by fluoroscopy into the L5 superior articular process and its corresponding junction with its transverse process and pedicle. The third cannula was guided by fluoroscopy into the L4 SAP and its corresponding junction with its transverse process and its pedicle. After confirmation of needle tip position on oblique view, each site underwent motor testing at 2 Hz and 0 to 2.5 volts, and there was good motor stimulation in the back and no radicular symptoms or paresthesias. After confirmation of motor testing, 0.5 mL of block solution injected at each site . Block solution contained 4 mL of 0.5% ropivacaine preservative free mixed with 40 MG of Kenalog. At this time, each site was ablated using continuous radiofrequency mode at 80 degrees Celsius for 90 seconds at each level. At the end of the procedure, each needle was retracted approximately 1 cm and the skin was infiltrated with 0.5% ropivacaine preservative free 1 ml at each site. Skin was cleansed and bandages were applied. Entire procedure repeated on the left side. Skin was cleansed and bandages were applied. Disposition : The patient tolerated the procedure very well. The patient was transferred to the recovery room and remained stable until discharged home. The patient was given detailed discharge instructions for infection, bleeding, and increased pain at the injection site, and was advised to seek immediate medical attention should significant side effects develop. The patient will be scheduled with Pain Clinic within 4 weeks.
== END 2022-05-03 13:35 | disposition home or self-care (01) ==
LOC: ORPAIN 11:25
DX: M47.816 Spondylosis without myelopathy or radiculopathy, lumbar region (principal); G89.29 Other chronic pain; G47.33 Obstructive sleep apnea (adult) (pediatric); E11.9 Type 2 diabetes mellitus without complications; M79.7 Fibromyalgia; R56.9 Unspecified convulsions; Z88.8 Allergy status to other drugs, medicaments and biological substances; Z91.040 Latex allergy status; Z79.4 Long term (current) use of insulin; Z79.899 Other long term (current) drug therapy; Z79.1 Long term (current) use of non-steroidal anti-inflammatories (NSAID); F17.210 Nicotine dependence, cigarettes, uncomplicated; Z90.49 Acquired absence of other specified parts of digestive tract
CPT/HCPCS: 64635; 64636 ×2; J2250; J3301; J3010; J2795

== ENCOUNTER 2023-03-06 06:04 | Day surgery (SDC) | payer MEDICARE, OTHER ==
[2023-03-06] MEDS ORDERED: LACTATED RINGERS 1,000 ML IV SCH (06:07)
[2023-03-06 06:48] VITALS: TEMP 97
[2023-03-06 06:57] LABS: Glucose,Whole Blood 86 mg/dL (70-110)
[2023-03-06] MEDS ORDERED: LIDOCAINE 2% INJ 20 MG/ML (2 ML VIAL) ONE (07:05)
[2023-03-06] MEDS ORDERED: PROPOFOL 10 MG/ML 20 ML VIAL IV ONE (07:05)
--- NOTE | 2023-03-06 07:05 | P.GSHP ---
History of Present Illness H&P Date: 03/06/23 CHIEF COMPLAINT: GERD HISTORY OF PRESENT ILLNESS: The patient is a 52-year-old female who presents reports gastroesophageal reflux disease. Upper endoscopy was offered for further evaluation and management. PAST MEDICAL HISTORY: Please see list. PAST SURGICAL HISTORY: Please see list. MEDICATIONS: Please see list. ALLERGIES: Please see list. SOCIAL HISTORY: No illicit drug use FAMILY HISTORY: No reports of Crohn disease or ulcerative colitis. REVIEW OF ORGAN SYSTEMS: CONSTITUTIONAL: No reports of fevers or chills. GI: Denies any blood in stools or constipation. PHYSICAL EXAM: VITAL SIGNS: Stable GENERAL: Well-developed and pleasant in no acute distress. HEENT: No scleral icterus. Extraocular movements grossly intact. Moist buccal mucosa. NECK: Supple without lymphadenopathy. CHEST: Unlabored respirations. Equal bilateral excursions. CARDIOVASCULAR: Regular rate and rhythm. Distal 2+ pulses. ABDOMEN: Soft, nondistended. MUSCULOSKELETAL: No clubbing, cyanosis, or edema. ASSESSMENT: 1. Gastroesophageal reflux disease PLAN: 1. Recommend proceeding with an upper endoscopy Past Medical History Past Medical History: Diabetes Mellitus, Eye Disorder, Fibromyalgia, GERD/Reflux, Hyperlipidemia, Osteoarthritis (OA), Seizure Disorder, Sleep Apnea/CPAP/BIPAP Additional Past Medical History / Comment(s): LAST SEIZURE over 1 YEARS AGO. Hx HIATAL HERNIA, degenerative disc disease. STATES PRE-CANCEROUS CELLS IN THROAT FROM GERD. STATES SOME PROBLEMS WALKING "MY LEGS ARE LIKE SPAGHETTI- I WALK LIKE I'M DRUNK". Bilateral legs neuropathy. no Sleep Apnea since weight loss. OSTEOPORISIS infusion every 6 months with prolia. 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 History of Any Multi-Drug Resistant Organisms: None Reported Past Surgical History: Back Surgery, Bariatric Surgery, Cholecystectomy, Tonsillectomy, Tubal Ligation Additional Past Surgical History / Comment(s): Gastric sleeve, hiatal hernia repair, cervical fusion, EGD, PAIN CLINIC PROCEDURES, lasik eye surgery. Past Anesthesia/Blood Transfusion Reactions: Motion Sickness, Postoperative Nausea & Vomiting (PONV) Additional Past Anesthesia/Blood Transfusion Reaction / Comment(s): Has a hard time sometimes waking up with anesthesia, no hx blood transfusion. Smoking Status: Current every day smoker - Past Family History Mother Family Medical History: No Reported History Additional Family Medical History / Comment(s): DIVERTICULITIS Father Family Medical History: Diabetes Mellitus Sister(s) Additional Family Medical History / Comment(s): arthritis Medications and Allergies Home Medications Medication Instructions Recorded Confirmed Type Insulin Degludec [Tresiba 60 unit SQ HS 05/11/18 03/04/23 History Flextouch U-100 Pen] Ergocalciferol [Vitamin D2 50,000 unit PO TU 03/22/20 03/04/23 History (DRISDOL)] Dapagliflozin Propanediol [Farxiga] 10 mg PO DAILY 08/16/20 03/04/23 History Omeprazole [PriLOSEC] 40 mg PO HS 11/29/20 03/04/23 History Glimepiride [Amaryl] 1 mg PO AC-BRKFST 02/07/21 03/04/23 History Metoclopramide [Reglan] 5 mg PO AC-TID 03/09/21 03/04/23 History Atorvastatin [Lipitor] 10 mg PO HS 06/06/21 03/04/23 History L.acidoph,Paracasei, B.lactis 1 each PO DAILY 06/06/21 03/04/23 History [Probiotic] Meloxicam [Mobic] 15 mg PO DAILY PRN 06/06/21 03/04/23 History Multivitamins, Thera [Multivitamin 1 tab PO DAILY 06/06/21 03/04/23 History (formulary)] Pregabalin [Lyrica] 200 mg PO TID 08/27/21 03/04/23 History Denosumab [Prolia] 60 mg SQ DIRECTED 03/04/23 03/04/23 History HYDROcodone/APAP 5-325MG [[place] 1 tab PO Q6HR PRN 03/04/23 03/04/23 History 5-325] Sertraline [Zoloft] 100 mg PO BID 03/04/23 03/04/23 History Unk Symbicort Inhaler 1 puff INHALATION DAILY 03/04/23 03/04/23 History Allergies Allergy/AdvReac Type Severity Reaction Status Date / Time aspartame Allergy GLANDS AND Verified 03/06/23 06:45 THROAT SWELL UP carbamazepine [From Tegretol] Allergy Rash/Hives Verified 03/06/23 06:45 latex Allergy Rash/Hives/ Verified 03/06/23 06:45 swelling Surgical - Exam Vital Signs Temp Pulse Resp BP Pulse Ox 97 F L 67 16 116/57 95 03/06/23 06:47 03/06/23 06:47 03/06/23 06:47 03/06/23 06:47 03/06/23 06:47
[2023-03-06 07:32] VITALS: RESP 18
--- NOTE | 2023-03-06 07:39 | P.PCN ---
Date of Procedure: 03/06/23 Description of Procedure: PREOPERATIVE DIAGNOSIS: Dysphagia. Gastroesophageal reflux disease Morbid obesity excess calories, BMI 37.1 Chronic tobacco abuse disorder POSTOPERATIVE DIAGNOSIS: Dysphagia. Gastroesophageal reflux disease Morbid obesity excess calories, BMI 37.1 Chronic tobacco abuse disorder Recurrent diaphragmatic hiatal hernia Gastric fistula OPERATION: Esophagogastroduodenoscopy with pyloric balloon dilator 8 to 10 mm Esophagogastroduodenoscopy with cold forceps biopsies along antrum and duodenum SURGEON: Maira Rayo MD ANESTHESIA: MAC. INDICATIONS: The patient is a 52-year-old male who presents with a history of dysphagia. Benefits and risks of the procedure were described. Informed consent was obtained. DESCRIPTION: The patient was brought into the endoscopy suite and laid in the left lateral decubitus position. After a timeout was confirmed, the procedure was initiated. An Olympus gastroscope was passed through a tortuous stomach where gastric fistula was identified and 7 cm recurrent hiatal hernia was found. The stomach was distorted. Balloon dilation 8 to 10 mm performed of the stomach. Cold forceps biopsies were obtained of the stomach and duodenum for inflammation. Next, inflammation of the antrum was identified with cold forceps biopsies obtained The stomach and duodenum. No full-thickness injury was encountered. The GI tract was desufflated. The patient tolerated the procedure well. FINDINGS: Squamocolumnar junction unremarkable at 33 cm. Gastric stricture without ulceration Balloon dilation of gastric stricture Diaphragmatic hiatal hernia 33-40 cm, 7 cm recurrent Diffuse gastritis and duodenitis, biopsies obtained Presence of sleeve gastrectomy LA grade B esophagitis. RECOMMENDATIONS: Recommend discontinue tobacco use as it is contributing to her symptoms Plan - Discharge Summary Discharge Rx Participant: No New Discharge Prescriptions: Continue Insulin Degludec [Tresiba Flextouch U-100 Pen] 60 unit SQ HS Ergocalciferol [Vitamin D2 (DRISDOL)] 50,000 unit PO TU Dapagliflozin Propanediol [Farxiga] 10 mg PO DAILY Omeprazole [PriLOSEC] 40 mg PO HS Metoclopramide [Reglan] 5 mg PO AC-TID Pregabalin [Lyrica] 200 mg PO TID HYDROcodone/APAP 5-325MG [[place] 5-325] 1 tab PO Q6HR PRN PRN Reason: Pain Denosumab [Prolia] 60 mg SQ DIRECTED Glimepiride [Amaryl] 1 mg PO AC-BRKFST Atorvastatin [Lipitor] 10 mg PO HS Multivitamins, Thera [Multivitamin (formulary)] 1 tab PO DAILY Meloxicam [Mobic] 15 mg PO DAILY PRN PRN Reason: Pain L.acidoph,Paracasei, B.lactis [Probiotic] 1 each PO DAILY Sertraline [Zoloft] 100 mg PO BID Unk Symbicort Inhaler 1 puff INHALATION DAILY Discharge Medication List Insulin Degludec [Tresiba Flextouch U-100 Pen] 60 unit SQ HS 05/11/18 [History] Ergocalciferol [Vitamin D2 (DRISDOL)] 50,000 unit PO TU 03/22/20 [History] Dapagliflozin Propanediol [Farxiga] 10 mg PO DAILY 08/16/20 [History] Omeprazole [PriLOSEC] 40 mg PO HS 11/29/20 [History] Glimepiride [Amaryl] 1 mg PO AC-BRKFST 02/07/21 [History] Metoclopramide [Reglan] 5 mg PO AC-TID 03/09/21 [History] Atorvastatin [Lipitor] 10 mg PO HS 06/06/21 [History] L.acidoph,Paracasei, B.lactis [Probiotic] 1 each PO DAILY 06/06/21 [History] Meloxicam [Mobic] 15 mg PO DAILY PRN 06/06/21 [History] Multivitamins, Thera [Multivitamin (formulary)] 1 tab PO DAILY 06/06/21 [History] Pregabalin [Lyrica] 200 mg PO TID 08/27/21 [History] Denosumab [Prolia] 60 mg SQ DIRECTED 03/04/23 [History] HYDROcodone/APAP 5-325MG [[place] 5-325] 1 tab PO Q6HR PRN 03/04/23 [History] Sertraline [Zoloft] 100 mg PO BID 03/04/23 [History] Unk Symbicort Inhaler 1 puff INHALATION DAILY 03/04/23 [History] Follow up Appointment(s)/Referral(s): Maira Rayo MD [STAFF PHYSICIAN] - 04/01/23 1:00 pm Patient Instructions/Handouts: Hiatal Hernia (DC), How to Stop Smoking (DC) Discharge Disposition: HOME SELF-CARE
[2023-03-06 07:50] VITALS: BP 109/71; PULSE 60
== END 2023-03-06 08:31 | disposition home or self-care (01) ==
LOC: ORWHC2ENDO 06:04
PROVIDERS: ATTEND Surgery Plastic and Reconstructive Surgery
DX: K29.50 Unspecified chronic gastritis without bleeding (principal); K21.9 Gastro-esophageal reflux disease without esophagitis; K44.9 Diaphragmatic hernia without obstruction or gangrene; E11.9 Type 2 diabetes mellitus without complications; M19.90 Unspecified osteoarthritis, unspecified site; E78.5 Hyperlipidemia, unspecified; E66.01 Morbid (severe) obesity due to excess calories; Z79.899 Other long term (current) drug therapy; F17.200 Nicotine dependence, unspecified, uncomplicated; Z68.37 Body mass index [BMI] 37.0-37.9, adult; K31.6 Fistula of stomach and duodenum; Z79.84 Long term (current) use of oral hypoglycemic drugs; Z79.4 Long term (current) use of insulin; Z90.49 Acquired absence of other specified parts of digestive tract; Z98.51 Tubal ligation status; Z90.89 Acquired absence of other organs; Z83.79 Family history of other diseases of the digestive system; Z83.3 Family history of diabetes mellitus; Z82.61 Family history of arthritis
CPT/HCPCS: 88305; 43239; 43245; J2704; J2001; C1726

== ENCOUNTER → 2023-12-19 | Outpatient (CLI) | payer MEDICARE, OTHER ==
[2023-12-19 12:49] LABS: INR 0.9 (<1.2); Partial Thromboplastin Time 22.2 sec (22.0-30.0); Prothrombin Time 9.7 sec (10.0-12.5)
[2023-12-19 15:53] LABS: Basophils % (A) 1.1 %; Eosinophils # (A) 0.33 X 10*3/uL (0.04-0.35); Eosinophils % (A) 3.5 %; HCT 37.4 % (37.2-46.3); HGB 11.8 g/dL (12.0-15.0); Lymphocytes # (A) 3.41 X 10*3/uL (0.90-5.00); Lymphocytes % (A) 36.6 %; MCH 27.6 pg (27.0-32.0); MCHC 31.6 g/dL (32.0-37.0); MCV 87.4 FL (80.0-97.0); Monocytes # (A) 0.55 X 10*3/uL (0.20-1.00); Monocytes % (A) 5.9 %; NRBC Per 100 WBC 0 X 10*3/uL (0.00-0.01); Neutrophils # (A) 4.89 X 10*3/uL (1.80-7.70); Neutrophils % (A) 52.5 %; Platelet Count 335 X 10*3/uL (140-440); RBC 4.28 X 10*6/uL (4.10-5.20); RDW 15.6 % (11.5-14.5); WBC 9.32 X 10*3/uL (4.50-10.00)
[2023-12-19 16:06] LABS: BUN/Creat Ratio 26.33 Ratio (12.00-20.00); Blood Urea Nitrogen 15.8 mg/dL (9.0-27.0); Calcium 8.8 mg/dL (8.7-10.3); Carbon Dioxide 23.2 mmol/L (21.6-31.8); Chloride 112 mmol/L (96-109); Glucose 123 mg/dL (70-110); Potassium 4.3 mmol/L (3.5-5.5); Sodium 143 mmol/L (135-145)
[2023-12-19 18:46] LABS: Appearance,Urine Clear (Clear); Bilirubin,Urine Negative (Negative); Blood,Urine Negative (Negative); Color,Urine Yellow (Yellow); Ketones,Urine Negative (Negative); Nitrite,Urine Negative (Negative); PH, Urine 5.5; Specific Gravity,Urine >1.035 (1.001-1.030)
== END | disposition home or self-care (01) ==
LOC: LABPAT 11:37
PROVIDERS: ATTEND Orthopaedic Surgery Orthopaedic Surgery of the Spine
DX: Z01.812 Encounter for preprocedural laboratory examination (principal); I10 Essential (primary) hypertension; E11.9 Type 2 diabetes mellitus without complications; M79.81 Nontraumatic hematoma of soft tissue; R06.02 Shortness of breath; Z22.322 Carrier or suspected carrier of Methicillin resistant Staphylococcus aureus
CPT/HCPCS: 36415; 80048; 81003; 83036; 85025; 85610; 85730; 86850; 86900; 86901; 87070

== ENCOUNTER 2023-12-24 08:58 | Inpatient (IN) | payer MEDICARE, OTHER ==
[2023-12-22 12:34] VITALS: BMI 35.5
[~2023-12-24 08:58] MED LIST changes: +HYDROmorphone 0.5 MG/0.5 ML SYRINGE IVP PRN; -LACTATED RINGERS 1,000 ML IV SCH
[2023-12-24] MEDS: LACTATED RINGERS 1,000 ML IV SCH (09:25)
[2023-12-24] MEDS: DEXAMETHASONE SOD PHOSPHATE 4 MG/ML 1 ML VIAL IV ONE ×2 (09:45→16:51)
[2023-12-24] MEDS: FAMOTIDINE 20 MG/2 ML VIAL IVP ONE (09:45)
[2023-12-24] MEDS: SCOPOLAMINE 1 MG/72 HR PATCH TRANSDERM ONE (09:45)
[2023-12-24] MEDS: ONDANSETRON 4 MG/2 ML VIAL IVP ONE (09:45)
[2023-12-24 09:55] LABS: Glucose,Whole Blood 81 mg/dL (70-110)
[2023-12-24] MEDS: MIDAZOLAM 2 MG/2 ML VIAL IVP ONE (10:06)
[2023-12-24] MEDS ORDERED: HYDROmorphone (PF) 1 MG/ML ONE (10:16)
[2023-12-24] MEDS ORDERED: ROCURONIUM 10 MG/ML (5 ML VIAL) IV ONE (10:16)
[2023-12-24] MEDS ORDERED: GLYCOPYRROLATE 0.2 MG/ML 2 ML VIAL ONE (10:16)
[2023-12-24] MEDS ORDERED: fentaNYL (PF) 50 MCG/ML 2 ML AMP ONE (10:16)
[2023-12-24] MEDS ORDERED: NEOSTIGMINE 1 MG/ML 10 ML VIAL ONE (10:16)
[2023-12-24] MEDS ORDERED: LIDOCAINE 1% INJ 10MG/ML (20 ML MDV) ONE (10:16)
[2023-12-24] MEDS ORDERED: SUCCINYLCHOLINE CHLORIDE 200 MG/10 ML VIAL IV ONE (10:16)
[2023-12-24] MEDS ORDERED: PROPOFOL 10 MG/ML 20 ML VIAL IV ONE (10:16)
[2023-12-24] MEDS: LIDOCAINE 1%-EPI 1:100,000 50 ML VIAL SQ ONE (10:20)
[2023-12-24] MEDS: GELATIN SPONGE,ABSORB (LARGE) 1 EACH SPONGE TOPICAL ONE (10:20)
[2023-12-24] MEDS: THROMBIN (BOVINE) 5,000 UNIT VIAL TOPICAL ONE (10:20)
[2023-12-24] MEDS: ceFAZolin 1,000 MG in SODIUM CHLORIDE 0.9% IRRIGATIO 1,000 ML IRRIGATION PRN (10:25)
[2023-12-24] MEDS: LACTATED RINGERS 1,000 ML IV ONE (11:54)
[2023-12-24] MEDS ORDERED: HYDROmorphone 0.5 MG/0.5 ML SYRINGE IVP PRN (13:18)
[2023-12-24] MEDS ORDERED: BENZOCAINE/MENTHOL LOZENG 1 EACH LOZENGE MUCOUS MEM PRN (13:18)
--- NOTE | 2023-12-24 13:26 | P.OP ---
Date of Procedure: 12/24/23 Preoperative Diagnosis: Herniated nucleus pulposus L4-5, degenerative scoliosis, asymmetric disc degeneration L4-5, lower extreme radiculopathy Postoperative Diagnosis: Same Anesthesia: GETA Pathology: none sent Condition: stable Disposition: PACU Description of Procedure: DESCRIPTION OF PROCEDURE(S): BRIEF OPERATIVE NOTE Preoperative Diagnosis: Herniated nucleus pulposus L4-5, spinal stenosis L4-5, degenerative scoliosis, asymmetric disc degeneration L4-5, lower extreme radiculopathy Postoperative Diagnosis: Same Procedure: Laminectomy and decompression L4-[address] navigation aided Minimally invasive Posterior lateral decompression and facet fusion L4-5 Minimally invasive Transforaminal lumbar interbody fusion for a 360 fusion L4-5 Discectomy for decompression L4-5 beyond the scope of discectomy for preparation for surgery Placement of interbody graft L4-5 Use of computer navigation for fusion Local autogenous bone grafting Aspiration of bone marrow from the vertebral body pedicle Use of bone graft extenders Surgeon: Dr. Blunt Press Puller: Dennis DAVIS who is present throughout the entire the case persistence during positioning, dissection, exposure, visualization, and all crucial elements of the case as well as closure. Anesthesia: General anesthesia Estimated blood loss: Approximately 100 mL Complications: None apparent Components implanted: K2M minimally invasive Arnett pedicle screw system withscrews measuring 6.5 mm in diameter to rods one [place] interbody cage with 10 mL of osteo amp bio4 bone graft substitute and 30 mL of the BX bone fibers to supplement the local autogenous bone graft and bone marrow aspirate Disposition: To recovery room in good stable condition. OPERATIVE INDICATIONS The patient has had severe issues at their lower extremity in her lower back with significant worsening over the past several months. Over the past few months the patient had pain at their back and their lower extremities. The patient is having severe radicular symptoms at their lower extremity with weakness. The patient is having significant pain in their back. They are unable to obtain any comfort. The patient was found to have severe asymmetric disc degeneration with severe collapse at L4-5 and some degenerative scoliosis. We did aggressive conservative treatment with medications therapy and interventional pain management however thery were not having any relief. The patient has been through conservative treatment. We discussed various treatment options including surgery, and the patient wishes to proceed with surgery We discussed the risk, patient's alternatives and benefits of surgery including but not limited to, risk of bleeding risk of infection, risk of need for further surgery, risk of decreased, loss of motion, muscle function, malunion nonunion, hardware failure, nerve damage, paralysis, heart attack, blindness and . They understood issues with the current pandemic and the possibility of exposure. OPERATIVE SUMMARY After discussing all the risks, patient alternatives and benefits at length, the patient elected to proceed with surgical intervention, signed informed consent, and presented for their procedure. The patient was seen and examined in the preoperative holding area and the surgical site was marked. The patient was given antibiotics and brought to the operating room. The patient was sedated and intubated by anesthesia in standard fashion. The patient was positioned on to the operating room table in a prone position on the appropriate frame which was well-padded and well molded. We were careful to pad any bony prominences and pressure points. We were careful to maintain the patient's cervical spine and good neutral alignment and position throughout. The patient was prepped and draped in a normal standard fashion. An appropriate timeout and keystone protocol performed. We were able to proceed with the surgery. The local wound area was infiltrated with local anesthetic. Over the right iliac crest I was able to make small stab incisions and establish a guidepin screw fixation to the iliac crest 2. I was able place the computer referencing device over the guidepins to establish an appropriate reference point for the [employer]em CT navigation. We then were able to place patient in an appropriate drape and do a navigation spin for visualization and 3-D reconstruction of the lumbar spine. I was able utilize C-arm guidance and navigation to establish appropriate position over the pedicles bilaterally at the appropriate levels . With the appropriate levels at L4 and L5 confirmed was able to make small incisions over the appropriate pedicle sites bilaterally. Utilizing the computer navigation device I was able to establish bony landmarks at the right iliac crest for a bony reference point for the navigation device. I was able to establish a Jamshidi needle over the lateral aspect of the pedicle and advanced the trocar into the pedicle being careful not to breech superiorly inferiorly medially or laterally using computer navigation device. Position was confirmed regularly with AP and lateral images on C-arm and with the computer navigation device at the appropriate levels of L4 and L5 bilaterally. I was able to establish the trocar into the pedicle appropriately into the posterior aspect of the vertebral body bilaterally at the appropriate levels. This was done at each of the pedicle positions and each of the vertebrae. At the superior vertebrae of L4 on the right I was able to take approximately 15 mL of bone aspiration for use later in the case to supplement the allograft and autograft bone. I was able place the guidewire into the trocar and into the vertebral body appropriately under C-arm guidance. Dissection was taken down over the wire to the appropriate starting position for the screw placed. The appropriate length screw was chosen, threaded over the guidewire and screwed appropriately into the pedicle and vertebral body under C-arm guidance in e xcellent alignment and position with good bony purchase. This is done at each of the screw sites at the appropriate levels at L4 and L5. With the screws intact I extended the incision to connect the screw hole sites on the most symptomatic side on the right. I dissected down to establish access over the pars and lamina to the base of the spinous process. I was able to expose the facet joint. The capsule the facet was taken down and showed some facet arthrosis at the joint. I was able to use a combination of curettes and Kerrison rongeurs and a high-speed drill to take down the facet joint and do a facetectomy. I was able get excellent foraminal decompression and central decompression with undermining across midline to perform a laminectomy centrally and contralaterally. As able get good central decompression. The ligamentum flavum was taken down to further decompress centrally and at bilateral neural foramen. I was able to expose the disc space and visualize the traversing nerve root. Note was made of some disc protrusion and a large disc herniation with extruded fragment that was abutting the traversing nerve root at the level causing further compression of the nerve root. There is significant stenosis due to the disc herniation and extra care was taken to do a complete discectomy of the extrusion to provide decompression. I was able to establish a annulotomy at the appropriate level protecting soft tissue and neural structures. Note was made of some disc desiccation at the disc. I performed a complete discectomy with accommodation of curettes and rasps and scrapers. I was able get good endplate preparation at the disc space. I sized for the appropriate size interbody spacer protecting the soft tissue and neural structures. The wound was copiously irrigated and suctioned dry. There is no evidence of any dural tear or leak. I was able to pack the disc space with local autogenous bone graft as well as a small amount of bone graft which was also placed into the interbody cage itself. Protecting the soft tissue structures and neural structures I was able place the interbody cage in good alignment and good position with good fit and fill at the interbody space. Position was confirmed with C-arm guidance. Good hemostasis maintained. There is no evidence of any dural tear or leak. The wound was irrigated and suctioned dry. With the hardware intact, intraoperative C-arm imaging was again taken which showed good alignment and position of the hardware at the appropriate levels. We were then able to measure, contour and place the rods and appropriate hardware bilaterally at L4 and L5. I was able to place capcrews, tighten them down, and torque them with the torque screwdriver appropriately. With this intact I was able to place the local autogenous bone graft with additional bone graft enhancer as necessary into the posterior lateral gutters over the decorticated transverse processes and facet joints on the contralateral side. The remainder of the bone graft was placed over the facet joint on the contralateral side after taking down the facet joint capsule. With the bone graft intact, a stable construct, and good decompression at the appropriate levels, we were able to proceed with closure. Good hemostasis was maintained. There is no evidence of dural tear or leak. The fascia was closed for a watertight closure. he subcuticular tissue was closed with absorbable suture. The wound was cleaned and dried and dressed with the appropriate dressing. The drapes were broken down. The patient was gently rolled back onto their hospital bed being careful to maintain their cervical spine and good neutral alignment and position. They were woken up by anesthesia, extubated, and brought to the recovery room in good stable condition. The patient will be admitted to the hospital for appropriate postoperative care, medical management and monitoring. We will continue to follow them closely about the postoperative course.
[2023-12-24] MEDS ORDERED: DENOSUMAB 60 MG/ML 1 ML SYRINGE SQ SCH (13:30)
[2023-12-24 13:55] LABS: Glucose,Whole Blood 147 mg/dL (70-110)
[2023-12-24] MEDS ORDERED: DEXTROSE 50% SYRINGE 50 ML IVP PRN (16:04)
[2023-12-24] MEDS: HYDROcodone/APAP 5-325MG 1 EACH TAB PO PRN (16:51)
[2023-12-24] MEDS: SODIUM CHLORIDE 0.9% 1,000 ML IV SCH (16:51)
[2023-12-24] MEDS: PREGABALIN 100 MG CAP PO SCH (16:52)
[2023-12-24] MEDS: CYCLOBENZAPRINE 10 MG TAB PO PRN (16:52)
[2023-12-24 16:58] LABS: Glucose,Whole Blood 183 mg/dL (70-110)
[2023-12-24] MEDS: INSULIN ASPART (NovoLOG) 100 UNIT/ML VIAL SQ SCH (17:23)
[2023-12-24] MEDS: METOCLOPRAMIDE 5 MG TAB PO SCH (17:23)
--- NOTE | 2023-12-24 17:23 | XR ---
EXAMINATION TYPE: XR lumbar spine 2 or 3V, FL guidance operating room DATE OF EXAM: 12/24/2023 Comparison: None Clinical History: 53-year-old female MIN INVASIVE LUMBAR FUSION Findings: 29 sec FL 4084.05 mGycm2 DAP dose No images submitted.
[2023-12-24] MEDS: HYDROmorphone 1 MG/ML 1 ML SYRINGE IVP PRN (17:47)
[2023-12-24 20:29] LABS: Glucose,Whole Blood 106 mg/dL (70-110)
[2023-12-24] MEDS: INSULIN DETEMIR (LEVEMIR) 100 UNIT/ML SYR SQ SCH (21:17)
[2023-12-24] MEDS: SERTRALINE 100 MG TAB PO SCH (21:18)
[2023-12-24] MEDS: HYDROcodone/APAP 7.5-325MG 1 EACH TAB PO PRN (21:18)
[2023-12-24] MEDS: ATORVASTATIN 10 MG TAB PO SCH (21:19)
[2023-12-24] MEDS: PANTOPRAZOLE 40 MG TABLET PO SCH (21:19)
[2023-12-25 05:54] LABS: Glucose,Whole Blood 57 mg/dL (70-110)
[2023-12-25 06:37] LABS: Glucose,Whole Blood 148 mg/dL (70-110)
[2023-12-25 08:14] LABS: Glucose,Whole Blood 129 mg/dL (70-110)
[2023-12-25 08:46] LABS: BUN/Creat Ratio 26.83 Ratio (12.00-20.00); Blood Urea Nitrogen 16.1 mg/dL (9.0-27.0); Calcium 8.2 mg/dL (8.7-10.3); Carbon Dioxide 24.5 mmol/L (21.6-31.8); Chloride 105 mmol/L (96-109); Glucose 48 mg/dL (70-110); Potassium 4.2 mmol/L (3.5-5.5); Sodium 140 mmol/L (135-145)
[2023-12-25 08:51] LABS: Basophils # (A) 0.08 X 10*3/uL (0.00-0.10); Basophils % (A) 0.5 %; Eosinophils # (A) 0.01 X 10*3/uL (0.04-0.35); Eosinophils % (A) 0.1 %; HCT 33.4 % (37.2-46.3); HGB 10.6 g/dL (12.0-15.0); Lymphocytes # (A) 0.96 X 10*3/uL (0.90-5.00); Lymphocytes % (A) 6.5 %; MCH 27.7 pg (27.0-32.0); MCHC 31.7 g/dL (32.0-37.0); MCV 87.2 FL (80.0-97.0); Mean Platelet Volume 10.3 FL (9.5-12.2); Monocytes # (A) 0.94 X 10*3/uL (0.20-1.00); Monocytes % (A) 6.3 %; NRBC Per 100 WBC 0 X 10*3/uL (0.00-0.01); Neutrophils # (A) 12.67 X 10*3/uL (1.80-7.70); Neutrophils % (A) 85.3 %; Platelet Count 311 X 10*3/uL (140-440); RBC 3.83 X 10*6/uL (4.10-5.20); RDW 15.1 % (11.5-14.5); WBC 14.85 X 10*3/uL (4.50-10.00)
[2023-12-25] MEDS ORDERED: LACTOBACILLUS ACIDOPHILUS/PECT 1 EACH CAPSULE PO SCH (09:00)
[2023-12-25] MEDS: GLIMEPIRIDE 4 MG TAB PO SCH (09:12)
[2023-12-25] MEDS: DAPAGLIFLOZIN PROPANEDIOL 10 MG TABLET PO SCH (09:13)
[2023-12-25] MEDS: SENNOSIDES-DOCUSATE SODIUM 1 EACH TAB PO SCH (09:13)
--- NOTE | 2023-12-25 09:35 | P.PN ---
Progress Note - Text Progress Note Date: 12/25/23 Postoperative day #1 Patient is seen and examined today at bedside. The patient has some pain around the surgical site as expected. She feels her legs are doing well. Pain is being controlled with medication. She is somewhat sleepy on her medicines but she is able to wake up and eat And have conversation Physical Exam Afebrile with stable vital signs Abdomen is soft nontender. Chest has good excursion deep and space expiration The incision site is clean dry and intact. No erythema there is no purulence. Extremities have not had neurologic change from prior to surgery. She has sustained dorsiflexion plantarflexion EHL intact. Calves and thighs were soft nontender without evidence of DVT. Assessment/Plan Postoperative day #1 status post minimally invasive decompression and fusion for her disc herniation with spinal stenosis and asymmetric degenerative disc with degenerative scoliosis Patient is progressing as expected from the surgery. She is sore today but pain is being controlled with medications. She seems to get drowsy with the IV medication and we should start to try to transition to orals. We will continue to increase the patient's mobilization with therapy. We will continue pain control with oral or IV medications. We'll continue to follow patient closely.
[2023-12-25 11:06] LABS: Glucose,Whole Blood 114 mg/dL (70-110)
--- NOTE | 2023-12-25 16:01 | P.CONS ---
History of Present Illness - Reason for Consult Consult date: 12/25/23 Medical management diabetes mellitus, Requesting physician: Bentley Blunt - Chief Complaint Herniated nucleus pulposus L4-5, degenerative scoliosis - History of Present Illness This is a 53-year-old female admitted with reported Herniated nucleus pulposus L4-5, degenerative scoliosis, asymmetric disc degeneration L4-5, lower extreme radiculopathy, status post surgical repair, postop day #1. Reports positive pain, receiving IV push pain medication as well as oral and ext remely sleepy. Arousable and opens eyes to answer assessment questions. Denies chest pain, palpitations or shortness of breath. Maintaining O2 sats in the 90s on 2 L nasal cannula. Afebrile, Tmax 99.5, WBC 14.85, hemoglobin 10.6, platelets 311. Hemoglobin A1c 7.3. Hypoglycemic earlier, currently controlled. Passing flatus. Review of Systems Constitutional: Reports fatigue, sleeping Cardio vascular: denied any chest pain, palpitations Gastrointestinal denied any nausea vomiting Pulmonary: Denied any shortness of breath cough Neurologic denied any new focal deficits ROS Statement: Those systems with pertinent positive or pertinent negative responses have been documented in the HPI. ROS Other: All systems not noted in ROS Statement are negative. Past Medical History Past Medical History: Diabetes Mellitus, Eye Disorder, Fibromyalgia, GERD/Reflux, Hyperlipidemia, Osteoarthritis (OA), Seizure Disorder, Sleep Legal Office Administrator ea/CPAP/BIPAP Additional Past Medical History / Comment(s): LAST SEIZURE OVER 1 YEAR AGO. Degenerative disc disease, Osteoporosis. "PRE-CANCEROUS CELLS IN THROAT FROM GERD". Neuropathy, bilateral legs. Sleep Apnea resolved since weight loss. Recent aneurysms in eyes, had lasik surgery. History of Any Multi-Drug Resistant Organisms: None Reported Past Surgical History: Back Surgery, Bariatric Surgery, Cholecystectomy, Tons illectomy, Tubal Ligation Additional Past Surgical History / Comment(s): Gastric sleeve, hiatal hernia repair, cervical fusion, EGD, PAIN CLINIC PROCEDURES, lasik eye surgery, L4-L5 decompression Past Anesthesia/Blood Transfusion Reactions: Motion Sickness, Postoperative Nausea & Vomiting (PONV) Additional Past Anesthesia/Blood Transfusion Reaction / Comm: Has a hard time sometimes waking up with anesthesia. No hx blood transfusion. Past Psychological History: Bipolar, Depression Smoking Status: Current every day smoker Past Alcohol Use History: None Reported Additional Past Alcohol Use History / Comment(s): STARTED SMOKING IN 1983, currently smokes 7 cigarettes a day. Past Drug Use History: None Reported - Past Family History Mother Family Medical History: No Reported History Additional Family Medical History / Comment(s): DIVERTICULITIS. Father Family Medical History: Diabetes Mellitus Sister(s) Additional Family Medical History / Comment(s): Arthritis Medications and Allergies Home Medications Medication Instructions Recorded Confirmed Type Insulin Degludec [Tresiba 50 unit SQ HS 05/11/18 12/24/23 History Flextouch U-100 Pen] Dapagliflozin Propanediol [Farxiga] 10 mg PO DAILY 08/16/20 12/24/23 History Omeprazole [PriLOSEC] 40 mg PO HS 11/29/20 12/24/23 History Metoclopramide [Reglan] 5 mg PO AC-TID 03/09/21 12/24/23 History Atorvastatin [Lipitor] 10 mg PO HS 06/06/21 12/24/23 History L.acidoph,Paracasei, B.lactis 1 each PO DAILY 06/06/21 12/24/23 History [Probiotic] Meloxicam [Mobic] 15 mg PO DAILY PRN 06/06/21 12/24/23 History Pregabalin [Lyrica] 200 mg PO TID 08/27/21 12/24/23 History Denosumab [Prolia] 60 mg SQ Q181D 03/04/23 12/24/23 History Sertraline [Zoloft] 100 mg PO BID 03/04/23 12/24/23 History Budesonide/Formoterol Fumarate 1 puff INHALATION DAILY PRN 12/22/23 12/24/23 History [Symbicort 160-4.5 Mcg Inhaler] Glimepiride [Amaryl] 4 mg PO AC-BRKFST 12/22/23 12/24/23 History HYDROcodone/APAP 7.5-325MG [Daisy 1 tab PO Q6HR PRN 12/22/23 12/24/23 History 7.5-325] Allergies Allergy/AdvReac Type Severity Reaction Status Date / Time aspartame Allergy GLANDS AND Verified 12/24/23 09:34 THROAT SWELL UP carbamazepine [From Tegretol] Allergy Rash/Hives Verified 12/24/23 09:34 latex Allergy Rash/Hives/ Verified 12/24/23 09:34 swelling Physical Exam Vitals: Vital Signs Temp Pulse Pulse Resp BP Pulse Ox 12/25/23 13:20 97.9 F 84 16 118/69 98 12/25/23 08:26 94 L 12/25/23 07:06 98.4 F 95 18 111/69 88 L 12/25/23 01:31 99.5 F 95 16 127/73 94 L 12/24/23 19:48 98.0 F 63 13 133/64 97 12/24/23 16:45 98.0 F 63 18 136/83 92 L Intake and Output 12/25/23 12/25/23 12/25/23 06:59 14:59 22:59 Output Total 900 Balance -900 Output: Urine 900 Other: Voiding Method Indwelling Catheter PHYSICAL EXAM: VITAL SIGNS: [As above] GENERAL: Alert and oriented x 2 ,sitting up in bed, no acute distress, sleepy, arousable HEENT: Normal cephalic conjunctivae normal. eyes normal. NECK: Supple, no JVD. CARDIOVASCULAR: S1, S2 regular.. No murmur RESPIRATION: Unlabored, equal air entry, fine expiratory wheeze ,breath sounds diminished in the bases. ABDOMEN: Soft, nontender . No guarding. no masses palpable. Bowel sounds heard. LEGS: No edema. no swelling NERVOUS SYSTEM: Limited exam, sleepy, unable to fully assess at this time. Skin: Warm and dry, no rash Results CBC & Chem 7: 12/25/23 05:37 12/25/23 05:37 Labs: Abnormal Lab Results - Last 24 Hours (Table) 12/24/23 12/25/23 12/25/23 Range/Units 16:57 05:37 05:37 WBC 14.85 H (4.50-10.00) X 10*3/uL RBC 3.83 L (4.10-5.20) X 10*6/uL Hgb 10.6 L (12.0-15.0) g/dL Hct 33.4 L (37.2-46.3) % MCHC 31.7 L (32.0-37.0) g/dL RDW 15.1 H (11.5-14.5) % Immature Gran # 0.19 H (0.00-0.04) X 10*3/uL Neutrophils # 12.67 H (1.80-7.70) X 10*3/uL Eosinophils # 0.01 L (0.04-0.35) X 10*3/uL BUN/Creatinine Ratio (12.00-20.00) Ratio Glucose (70-110) mg/dL POC Glucose (mg/dL) 183 H (70-110) mg/dL Hemoglobin A1c 7.3 H (<=6.0) % Calcium (8.7-10.3) mg/dL 12/25/23 12/25/23 12/25/23 Range/Units 05:37 05:52 06:35 WBC (4.50-10.00) X 10*3/uL RBC (4.10-5.20) X 10*6/uL Hgb (12.0-15.0) g/dL Hct (37.2-46.3) % MCHC (32.0-37.0) g/dL RDW (11.5-14.5) % Immature Gran # (0.00-0.04) X 10*3/uL Neutrophils # (1.80-7.70) X 10*3/uL Eosinophils # (0.04-0.35) X 10*3/uL BUN/Creatinine Ratio 26.83 H (12.00-20.00) Ratio Glucose 48 A* (70-110) mg/dL POC Glucose (mg/dL) 57 L 148 H (70-110) mg/dL Hemoglobin A1c (<=6.0) % Calcium 8.2 L (8.7-10.3) mg/dL 12/25/23 12/25/23 Range/Units 08:14 11:05 WBC (4.50-10.00) X 10*3/uL RBC (4.10-5.20) X 10*6/uL Hgb (12.0-15.0) g/dL Hct (37.2-46.3) % MCHC (32.0-37.0) g/dL RDW (11.5-14.5) % Immature Gran # (0.00-0.04) X 10*3/uL Neutrophils # (1.80-7.70) X 10*3/uL Eosinophils # (0.04-0.35) X 10*3/uL BUN/Creatinine Ratio (12.00-20.00) Ratio Glucose (70-110) mg/dL POC Glucose (mg/dL) 129 H 114 H (70-110) mg/dL Hemoglobin A1c (<=6.0) % Calcium (8.7-10.3) mg/dL Assessment and Plan Assessment: status post minimally invasive decompression and fusion for her disc herniation with spinal stenosis and asymmetric degenerative disc with degenerative scoliosis, postop day #1 Atelectasis postoperative, expected outcome Diabetes mellitus, hemoglobin A1c 7.3 Nicotine dependence Plan: Continue on current medication regimen ,monitoring and symptomatic treatment. Pain management as per orthopedic surgery, recommending decrease IV medication, and transition to oral, as patient sleepy on IV pain medication. Aggressive pulmonary toileting with incentive spirometer reinforced and nebulized bronchodilators ordered. Smoking cessation reinforced. Nicotine patch ordered. PT. The impression and plan of care has been dictated as directed. : I performed a history and examination of this patient, discussed the same with the dictator. I agree with the dictator's note ,documented as a scribe. Any additional findings or plans will be noted.
[2023-12-25 17:05] LABS: Glucose,Whole Blood 96 mg/dL (70-110)
[2023-12-25] MEDS: NICOTINE 14MG/24HR PATCH TRANSDERM SCH (17:22)
[2023-12-25 20:14] LABS: Glucose,Whole Blood 158 mg/dL (70-110)
[2023-12-25] MEDS ORDERED: IPRATROPIUM-ALBUTEROL 3 ML NEB INHALATION PRN (20:26)
[2023-12-26 01:57] LABS: Glucose,Whole Blood 208 mg/dL (70-110)
[2023-12-26 06:39] LABS: Glucose,Whole Blood 329 mg/dL (70-110)
[2023-12-26] MEDS: IPRATROPIUM-ALBUTEROL 3 ML NEB INHALATION SCH (08:08)
--- NOTE | 2023-12-26 09:08 | P.PN ---
Progress Note - Text Progress Note Date: 12/26/23 Orthopedic Spine History of present illness: Patient is a pleasant 53-year-old female who is seen and examined at the bedside following posterior lateral decompression and fusion performed y Friday. Patient states they are doing ok post operatively. She was having excessive drowsiness yesterday on IV narcotic medications. IV narcotics have been discontinued. Her pain is currently being controlled with oral medications. She is much more awake and alert today. She was unable to work with physical therapy yesterday due to her drowsiness. She is planning to work with physical therapy today. She does not feel she could take care of herself at home and is willing to discharge to a rehabilitation facility. She has been seen by case management who is working on the authorization process. Her Renteria catheter remains intact. We are planning for discontinuation of her Renteria catheter today. She is being seen and examined by medicine for her multiple other medical diagnoses. Currently does not complain of nausea, vomiting, fever, or chills. Patient states pain has been adequately controlled. Patient is eating without difficulty. Physical Exam Lumbar Fusion: Status post surgical day number 2 Patient is awake, alert, and oriented 3 Vital signs stable Good chest excursion with deep inspiration and expiration Dorsiflexion, plantarflexion, and extensor hallucis longus positive sustained bilaterally No signs or symptoms of DVT; no calf pain; pneumatic cuffs intact bilateral lower extremities Optifoam dressings remain intact over the lumbar spine and right iliac crest; no erythema, purulence, or signs of infection Neurovascularly intact bilaterally lower extremities Assessment: Status post L4-5 minimally invasive posterior lateral decompression and fusion with transforaminal lumbar interbody fusion Degenerative scoliosis L4-5 asymmetric degenerative disc disease L4-5 herniated nucleus pulposus Lower extremity radiculopathy L4-5 spinal stenosis Low back pain Diabetes mellitus Hyperlipidemia Seizure disorder Sleep apnea Plan: 1. Ambulate as tolerated; work with Physical Therapy to increase mobilization; patient was unable to work with physical therapy yesterday due to her drowsiness but is planning to work with physical therapy today 2. Continue pain control with oral medications 3. Dressings to remain intact with Optifoam; patient may shower with dressings intact 4. Medical management can continue to manage patient for patient's other medical diagnoses 5. Renteria catheter is intact. Will plan to discontinue the Renteria catheter today to see if the patient is able to void independently 6. We will continue to follow the patient closely; patient continues to have difficulty with mobilization and ambulation postoperatively. She had difficulty working with physical therapy yesterday due to her drowsiness. We are plan to have her work with physical therapy today. She continues to require oral medications for pain control. IV pain medications were discontinued due to significant drowsiness. I do not feel the patient is ready for discharge home. Patient will continue to remain in the hospital until her symptoms improve and her pain is better controlled. We will plan to have the patient be admitted to in patient status during her admission. Patient will most likely need discharge to a rehabilitation facility. Case management is currently working with insurance for authorization and placement. If the patient is approved and improves, we may plan for discharge as early as tomorrow, 12/27/2023 7. Patient can follow-up with Dennis Allison PA-C or Dr. Rigo Blunt at [facility] in 2-3 weeks following discharge
[2023-12-26 12:00] LABS: Glucose,Whole Blood 162 mg/dL (70-110)
[2023-12-26 16:49] LABS: Glucose,Whole Blood 231 mg/dL (70-110)
[2023-12-26 20:51] LABS: Glucose,Whole Blood 139 mg/dL (70-110)
--- NOTE | 2023-12-26 21:12 | P.PN ---
Subjective Progress Note Date: 12/26/23 She is feeling better today although continues to complain of back pain limiting her mobility. She denies chest pain, shortness of breath, fever, chills. Objective - Vital Signs Vital signs: Vital Signs Temp 99.4 F 12/26/23 19:59 Pulse 102 H 12/26/23 19:59 Resp 19 12/26/23 19:59 BP 129/77 12/26/23 19:59 Pulse Ox 96 12/26/23 19:59 FiO2 Intake & Output 12/26/23 12/26/23 12/27/23 06:59 18:59 06:59 Output Total 1400 1640 Balance -1400 -1640 Output: Urine 1400 1640 Uretheral (Renteria) 395 Other: Voiding Method Indwelling Catheter Indwelling Catheter - Exam Gen: well developed well nourished NAD CV: RRR, no murmur Lungs: CTAB Abd: soft, nontender - Labs CBC & Chem 7: 12/25/23 05:37 12/25/23 05:37 Labs: Abnormal Lab Results - Last 24 Hours (Table) 12/26/23 12/26/23 12/26/23 Range/Units 01:56 06:23 11:59 POC Glucose (mg/dL) 208 H 329 H 162 H (70-110) mg/dL 12/26/23 12/26/23 Range/Units 16:47 20:49 POC Glucose (mg/dL) 231 H 139 H (70-110) mg/dL Assessment and Plan Plan: Continue with current regimen, [place] and dilaudid for pain and reglan for nausea. Sliding scale insulin. Encourage her to ambulate with PT
[2023-12-27 01:20] LABS: Glucose,Whole Blood 133 mg/dL (70-110)
[2023-12-27 06:00] LABS: Glucose,Whole Blood 160 mg/dL (70-110)
[2023-12-27] MEDS: SYMBICORT 160-4.5 MCG INHALER INHALATION PRN (09:31)
--- NOTE | 2023-12-27 10:12 | P.PN ---
Progress Note - Text Progress Note Date: 12/27/23 Postoperative day #3 Patient is seen and examined today at bedside. The patient has some pain around the surgical site as expected. Pain is being controlled with medication. She has been ambulating with therapy into the halls. She is sitting up in chair and she is feeling better. She is passing gas but has not yet had a bowel movement. She is tolerating her regular diet well. Physical Exam Afebrile with stable vital signs Abdomen is soft nontender. Chest has good excursion deep and space expiration The incision site is clean dry and intact. No erythema there is no purulence. The dressing is clean and dry. There is no active drainage. Extremities have not had neurologic change from prior to surgery. She has sustained dorsiflexion plantarflexion EHL intact. She is able to lift her legs up off the bed independently. Calves and thighs were soft nontender without evidence of DVT. Assessment/Plan Postoperative day #3 status post minimally invasive decompression fusion for her spinal stenosis with degenerative scoliosis and radiculopathy. Patient is progressing as expected from the surgery. She seems to have turned a corner to some degree and is mobilizing better. Her pain is better controlled she still requiring regular oral medication We will continue to increase the patient's mobilization with therapy. She has not yet had a bowel movement but she is passing gas. She may do well with the Dulcolax suppository. There is some plan on the possibility of chcf versus home. She is thinking that she might be able to go home tomorrow if she is able to have a bowel movement and hopefully that can happen today or tomorrow. We will continue pain control with oral or IV medications. We'll continue to follow patient closely.
--- NOTE | 2023-12-27 11:21 | P.PN ---
Subjective This is a 53-year-old female admitted with reported Herniated nucleus pulposus L4-5, degenerative scoliosis, asymmetric disc degeneration L4-5, lower extreme radiculopathy, status post surgical repair, postop day #3 She has multiple medical problems chronically including diabetes mellitus, hyperlipidemia, GERD, fibromyalgia seizure disorder and osteoarthritis She is sitting in chair fully awake and oriented, she is main complaint is constipation, she does not have a bowel movement for 7-day but she is passing gas. But she denies abdominal pain or tenderness. She denies chest pain or dyspnea. No headache dizziness. No urinary complaint. Her blood pressure 170/65, she is saturating 93% on room air. She is tachycardic with heart rate around 104, she had temperature 2 days ago on 12/24 and today both at 100 degree. Also she has leukocytosis 14.8 and hemoglobin 10.6. Hemoglobin A1c 7.3 Currently she is on normal saline 75 mL/h She is on Protonix She is getting Levemir 50 units at bedtime and Farxiga. Objective - Vital Signs Vital signs: Vital Signs Temp 98.1 F 12/27/23 07:20 Pulse 104 H 12/27/23 09:34 Resp 16 12/27/23 07:20 BP 107/65 12/27/23 07:20 Pulse Ox 93 L 12/27/23 09:27 FiO2 21 12/27/23 09:27 Intake & Output 12/26/23 12/27/23 12/27/23 18:59 06:59 18:59 Output Total 1640 Balance -1640 Output: Urine 1640 Uretheral (Renteria) 395 Other: Voiding Method Indwelling Catheter # Voids 1 - Exam Patient GENERAL: The patient is alert and oriented x3, not in any acute distress. Well developed, well nourished. HEENT: Pupils are round and equally reacting to light. EOMI. No scleral icterus. No conjunctival pallor. Normocephalic, atraumatic. No pharyngeal erythema. No thyromegaly. CARDIOVASCULAR: S1 and S2 present. No murmurs, rubs, or gallops. PULMONARY: Chest is clear to auscultation, no wheezing , no crackles. ABDOMEN: Soft, nontender, nondistended, normoactive bowel sounds. No palpable organomegaly. -MUSCULOSKELETAL: No joint swelling or deformity. Surgical wound closed and healing. Rest of exam is deferred per surgery team EXTREMITIES: No cyanosis, clubbing, or pedal edema. NEUROLOGICAL: Gross neurological examination did not reveal any focal deficits. SKIN: No rashes. no petechiae. - Labs CBC & Chem 7: 12/25/23 05:37 12/25/23 05:37 Labs: Abnormal Lab Results - Last 24 Hours (Table) 12/26/23 12/26/23 12/26/23 Range/Units 11:59 16:47 20:49 POC Glucose (mg/dL) 162 H 231 H 139 H (70-110) mg/dL 12/27/23 12/27/23 Range/Units 01:18 05:59 POC Glucose (mg/dL) 133 H 160 H (70-110) mg/dL Assessment and Plan Assessment: Herniated nucleus pulposus L4-5, degenerative scoliosis, asymmetric disc degeneration L4-5, lower extreme radiculopathy, status post surgical repair, with decompression and fusion on 12/23. Today postop day #3. Fever, postoperative. Rule out patient infection Constipation x 7 days. Postoperative ileus 3 times a day. Leukocytosis could be secondary to surgery reactive. Monitor for now. Patient had a chronic anemia. Diabetes mellitus Hyperlipidemia History of GERD History of fibromyalgia History of seizures History of osteoarthritis Plan: Continue with normal saline Check chest x-ray Check KUB Repeat labs. Monitor fever.. Will not start antibiotics now.we will keep monitoring now orthopedic team primary care on the case gi prophylaxis on protoninx DVT prophylaxis SCDs, anticoagulation is deferred to surgery team Prognosis is guarded
[2023-12-27 11:23] LABS: Glucose,Whole Blood 174 mg/dL (70-110)
--- NOTE | 2023-12-27 11:26 | XR ---
EXAMINATION TYPE: XR chest 2V DATE OF EXAM: 12/27/2023 COMPARISON: 09/28/2021 HISTORY: 53-year-old female with fever TECHNIQUE: PA and lateral views FINDINGS: Heart upper limits of normal in size. There is a trace left pleural effusion with adjacent patchy lef t basilar opacity. Remainder of the lungs appear clear. ACDF hardware. IMPRESSION: Trace left pleural effusion with adjacent patchy atelectasis and/or infiltrate.
--- NOTE | 2023-12-27 11:50 | XR ---
EXAMINATION TYPE: XR KUB DATE OF EXAM: 12/27/2023 Comparison: None Clinical History: 53-year-old female constipation Findings: There is moderate stool in the right side of the colon. Otherwise, prominent gassy colon. The transve rse colon is mildly distended to 6.2 cm. Relative possibly of bowel gas in the distal sigmoid and rec lola. No dilated small bowel loops. Cholecystectomy clips. L4-L5 posterior and interbody lumbar fusion . Impression: Air distended transverse and descending colon, mildly dilated up to 6.2 cm. There is moderate stool l imited to the right side of the colon. Consider colonic ileus or a nonspecific colitis. Follow-up if indicated to exclude a distal colonic obstruction.
[2023-12-27 12:22] LABS: Basophils % (A) 0 %; Eosinophils # (A) 0.5 k/uL (0-0.7); Eosinophils % (A) 4 %; HCT 29.2 % (34.0-46.0); HGB 9.3 gm/dL (11.4-16.0); Lymphocytes # (A) 1.8 k/uL (1.0-4.8); Lymphocytes % (A) 14 %; MCH 28.5 pg (25.0-35.0); Mean Platelet Volume 7.8; Monocytes # (A) 0.5 k/uL (0-1.0); Monocytes % (A) 4 %; Neutrophils # (A) 9.8 k/uL (1.3-7.7); Neutrophils % (A) 76 %; Platelet Count 256 k/uL (150-450); RBC 3.28 m/uL (3.80-5.40); RDW 14.8 % (11.5-15.5); WBC 12.9 k/uL (3.8-10.6)
[2023-12-27 12:36] LABS: ALT 11 U/L (4-34); AST 27 U/L (14-36); African American GFR (CKD) >90 (>60 ml/min/1.73 sqM); Albumin 2.8 g/dL (3.5-5.0); Albumin/Globulin Ratio 1.2; Alkaline Phosphatase 78 U/L (38-126); Anion Gap 6 mmol/L; Bilirubin,Unconjugated 0.4 mg/dL (0.0-1.1); Blood Urea Nitrogen 13 mg/dL (7-17); Carbon Dioxide 25 mmol/L (22-30); Chloride 104 mmol/L (98-107); Globulin 2.4 g/dL; Glucose 146 mg/dL (74-99); Non-African American GFR(CKD) >90 (>60 ml/min/1.73 sqM); Potassium 3.8 mmol/L (3.5-5.1); Sodium 135 mmol/L (137-145); Total Bilirubin 0.6 mg/dL (0.2-1.3); Total Protein 5.2 g/dL (6.3-8.2)
[2023-12-27] MEDS: bisacodyL 10 MG SUPP RECTAL ONE (13:31)
[2023-12-27 16:42] LABS: Glucose,Whole Blood 159 mg/dL (70-110)
[2023-12-27 19:36] LABS: Glucose,Whole Blood 158 mg/dL (70-110)
[2023-12-27 22:32] LABS: Glucose,Whole Blood 165 mg/dL (70-110)
[2023-12-27] MEDS: LEVOFLOXACIN 500 MG TAB PO SCH (23:05)
[2023-12-27] MEDS: metroNIDAZOLE 500 MG TAB PO SCH (23:05)
--- NOTE | 2023-12-28 01:32 | XR ---
EXAM: XR Right Hip With Pelvis When Performed, 1 View CLINICAL HISTORY: ITS.REASON XR Reason: Fall TECHNIQUE: Frontal view of the right hip with pelvis when performed. COMPARISON: No relevant prior studies available. FINDINGS: Bones/joints: Osseous demineralization. Mild joint space narrowing. No acute fracture. No dislocation. Soft tissues: Unremarkable. IMPRESSION: No fracture.
[2023-12-28 06:10] LABS: Glucose,Whole Blood 122 mg/dL (70-110)
--- NOTE | 2023-12-28 10:47 | XR ---
EXAMINATION TYPE: XR KUB portable DATE OF EXAM: 12/28/2023 CLINICAL DATA: 53-year-old female ileus, [facility] COMPARISON: 12/27/2023 FINDINGS: Supine imaging limited for assessment of free air. L4-L5 posterior and interbody fusion li dware. Surgical clips in the upper abdomen. Transverse colon remains air dilated up to 6.4 cm versus 6.2 cm, previously, not significantly changed. No dilated small bowel loops are seen. Moderate stool in the right side of the colon. IMPRESSION: Ongoing colonic distention up to 6.4 cm, relatively similar to prior. No dilated small bowel is seen.
[2023-12-28 11:35] LABS: Glucose,Whole Blood 69 mg/dL (70-110)
[2023-12-28 12:05] LABS: Glucose,Whole Blood 88 mg/dL (70-110)
--- NOTE | 2023-12-28 12:10 | P.PN ---
Subjective This is a 53-year-old female admitted with reported Herniated nucleus pulposus L4-5, degenerative scoliosis, asymmetric disc degeneration L4-5, lower extreme radiculopathy, status post surgical repair, postop day #3 She has multiple medical problems chronically including diabetes mellitus, hyperlipidemia, GERD, fibromyalgia seizure disorder and osteoarthritis She is sitting in chair fully awake and oriented, she is main complaint is constipation, she does not have a bowel movement for 7-day but she is passing gas. But she denies abdominal pain or tenderness. She denies chest pain or dyspnea. No headache dizziness. No urinary complaint. Her blood pressure 170/65, she is saturating 93% on room air. She is tachycardic with heart rate around 104, she had temperature 2 days ago on 12/24 and today both at 100 degree. Also she has leukocytosis 14.8 and hemoglobin 10.6. Hemoglobin A1c 7.3 Currently she is on normal saline 75 mL/h She is on Protonix She is getting Levemir 50 units at bedtime and Farxiga. 12/28/2023 Patient was having fever yesterday so we started her on oral Levaquin and Flagyl. Overnight patient fell on her right side, hip x-ray ordered and she was negative for fracture This morning patient was weak and is mildly lethargic but she is fully awake oriented to time place person and she answers questions appropriately. She has generalized weakness but no lateralization. Her abdomen is still mildly distended, currently she is on liquids diet. Patient states she had small liquid bowel movement yesterday, we repeated KUB and showing persistent dilated loops suspicious for ileus therefore we are going to consult surgery team Also chest x-ray yesterday was suspicious for pneumonia. She was mildly hypoglycemic this morning so we lowered her Amaryl 4 mg down to 3 mg daily. She is on Levemir 50 units at bedtime. Patient was hoping to be discharged today because she has a court date tomorrow 8:30 in the morning for her landlord strain to evaluate her from her apartment/place. I discussed with the patient she is not medically stable and ready for discharge and she agrees to stay. Also a sick leave letter can be provided for her open discharged to take it to court Discussed with staff Review of systems CONSTITUTIONAL: No fever, no malaise, no fatigue. HEENT: No recent visual problems or hearing problems. Denied any sore throat. CARDIOVASCULAR: No orthopnea, PND, no palpitations, no syncope. PULMONARY: No shortness of breath, no cough, no hemoptysis. GASTROINTESTINAL: No diarrhea, no nausea, no vomiting, no abdominal pain. Normoactive bowel sounds. NEUROLOGICAL: No headaches, no weakness, no numbness. HEMATOLOGICAL: Denies any bleeding or petechiae. Active Medications Generic Name Dose Route Start Last Admin Trade Name Freq PRN Reason Stop Dose Admin Hydrocodone Bitart/Acetaminophen 1 each 12/24/23 13:18 12/24/23 16:51 Hydrocodone/Apap 5-325mg 1 Each Tab PO 01/23/24 13:19 1 each Q4HR PRN Administration Pain Hydrocodone Bitart/Acetaminophen 1 each 12/24/23 13:20 12/28/23 04:16 Hydrocodone/Apap 7.5-325mg 1 Each Tab PO 01/23/24 13:21 1 each Q6HR PRN Administration Pain Albuterol/Ipratropium 3 ml 12/26/23 08:00 12/28/23 11:51 Ipratropium-Albuterol 3 Ml Neb INHALATION 3 ml RT-QID MAGUI Administration Albuterol/Ipratropium 3 ml 12/25/23 20:26 Ipratropium-Albuterol 3 Ml Neb INHALATION RT-Q2H PRN Shortness Of Breath Or Wheezing Atorvastatin Calcium 10 mg 12/24/23 21:00 12/27/23 20:39 Atorvastatin 10 Mg Tab PO 01/23/24 21:01 10 mg HS MAGUI Administration Benzocaine/Menthol 1 each 12/24/23 13:18 Benzocaine/Menthol Lozeng 1 Each Lozenge MUCOUS MEM 01/23/24 13:19 Q4HR PRN Sore Throat Budesonide/Formoterol Fumarate 1 puff 12/24/23 13:20 12/27/23 09:31 Symbicort 160-4.5 Mcg Inhaler INHALATION 01/23/24 13:21 1 puff RT-DAILY PRN Administration Shortness Of Breath Cyclobenzaprine HCl 10 mg 12/24/23 13:18 12/28/23 04:18 Cyclobenzaprine 10 Mg Tab PO 01/23/24 13:19 10 mg TID PRN Administration Muscle Spasm Dapagliflozin 10 mg 12/25/23 09:00 12/28/23 09:05 Dapagliflozin Propanediol 10 Mg Tablet PO 01/24/24 09:01 10 mg DAILY MAGUI Administration Dextrose/Water 25 ml 12/24/23 16:04 Dextrose 50% Syringe 50 Ml IVP PER PROTOCOL PRN Hypoglycemia Protocol Dextrose/Water 50 ml 12/24/23 16:04 Dextrose 50% Syringe 50 Ml IVP PER PROTOCOL PRN Hypoglycemia Protocol Glimepiride 3 mg 12/29/23 07:30 Glimepiride 1 Mg Tab PO 01/24/24 07:31 AC-BRKFST MAGUI Hydromorphone HCl 0.5 mg 12/24/23 13:18 Hydromorphone 0.5 Mg/0.5 Ml Syringe IVP 01/23/24 13:19 Q4HR PRN Pain Hydromorphone HCl 1 mg 12/24/23 13:18 12/25/23 04:35 Hydromorphone 1 Mg/Ml 1 Ml Syringe IVP 01/23/24 13:19 1 mg Q4HR PRN Administration Pain Lactated Ringer's 1,000 mls @ 20 mls/hr 12/24/23 05:27 12/27/23 23:07 Lactated Ringers IV 01/23/24 05:28 Not Given .Q24H MAGUI Sodium Chloride 1,000 mls @ 75 mls/hr 12/24/23 13:30 12/27/23 20:46 Saline 0.9% IV 01/23/24 13:31 Not Given .[id number] MAGUI Insulin Aspart 0 unit 12/24/23 17:30 12/28/23 06:17 Insulin Aspart (Novolog) 100 Unit/Ml Vial SQ Not Given ACHS [facility] Protocol Insulin Detemir 50 unit 12/24/23 21:00 12/27/23 20:43 Insulin Detemir (Levemir) 100 Unit/Ml Syr SQ 01/23/24 21:01 50 unit HS MAGUI Administration Levofloxacin 500 mg 12/27/23 22:15 12/27/23 23:05 Levofloxacin 500 Mg Tab PO 01/06/24 22:16 500 mg Q24H MAGUI Administration Protocol Lidocaine HCl 0.1 ml 12/24/23 05:27 Lidocaine 1% (10mg/Ml) For Iv Start INTRADERMA 01/23/24 05:28 PER PROTOCOL PRN IV Start Metoclopramide HCl 5 mg 12/24/23 17:30 12/28/23 09:05 Metoclopramide 5 Mg Tab PO 01/23/24 17:31 5 mg AC-TID MGAUI Administration Metronidazole 500 mg 12/27/23 22:15 12/28/23 09:05 Metronidazole 500 Mg Tab PO 01/06/24 22:16 500 mg TID MAGUI Administration Protocol Nicotine 1 patch 12/25/23 16:00 12/28/23 09:06 Nicotine 14mg/24hr Patch TRANSDERM 1 patch DAILY MAGUI Administration Ondansetron HCl 4 mg 12/24/23 13:18 Ondansetron 4 Mg/2 Ml Vial IVP 01/23/24 13:19 Q8HR PRN Nausea And Vomiting Pantoprazole Sodium 40 mg 12/24/23 21:00 12/27/23 20:40 Pantoprazole 40 Mg Tablet PO 01/23/24 21:01 40 mg HS MAGUI Administration Pregabalin 200 mg 12/24/23 16:00 12/28/23 09:05 Pregabalin 100 Mg Cap PO 01/23/24 16:01 200 mg TID MAGUI Administration Senna/Docusate Sodium 1 each 12/25/23 09:00 12/28/23 09:05 Sennosides-Docusate Sodium 1 Each Tab PO 01/24/24 09:01 1 each DAILY MAGUI Administration Sertraline HCl 100 mg 12/24/23 21:00 12/28/23 09:05 Sertraline 100 Mg Tab PO 01/23/24 21:01 100 mg BID MAGUI Administration Objective - Vital Signs Vital signs: Vital Signs Temp 97.8 F 12/28/23 07:20 Pulse 98 12/28/23 08:38 Resp 20 12/28/23 07:20 BP 110/69 12/28/23 07:20 Pulse Ox 94 L 12/28/23 07:20 FiO2 21 12/27/23 09:27 Intake & Output 12/27/23 12/28/23 12/28/23 17:59 06:59 18:59 Other: # Voids - Exam Patient GENERAL: The patient is alert and oriented x3, not in any acute distress. Well developed, well nourished. HEENT: Pupils are round and equally reacting to light. EOMI. No scleral icterus. No conjunctival pallor. Normocephalic, atraumatic. No pharyngeal erythema. No thyromegaly. CARDIOVASCULAR: S1 and S2 present. No murmurs, rubs, or gallops. PULMONARY: Chest is clear to auscultation, no wheezing , no crackles. ABDOMEN: Soft, nontender, nondistended, normoactive bowel sounds. No palpable organomegaly. -MUSCULOSKELETAL: No joint swelling or deformity. Surgical wound closed and healing. Rest of exam is deferred per surgery team EXTREMITIES: No cyanosis, clubbing, or pedal edema. NEUROLOGICAL: Gross neurological examination did not reveal any focal deficits. SKIN: No rashes. no petechiae. - Labs CBC & Chem 7: 12/27/23 11:54 12/27/23 11:54 Labs: Abnormal Lab Results - Last 24 Hours (Table) 12/27/23 12/27/23 12/27/23 Range/Units 11:21 11:54 11:54 WBC 12.9 H (3.8-10.6) k/uL RBC 3.28 L (3.80-5.40) m/uL Hgb 9.3 L (11.4-16.0) gm/dL Hct 29.2 L (34.0-46.0) % Neutrophils # 9.8 H (1.3-7.7) k/uL Sodium 135 L (137-145) mmol/L Glucose 146 H (74-99) mg/dL POC Glucose (mg/dL) 174 H (70-110) mg/dL Calcium 8.0 L (8.4-10.2) mg/dL Total Protein 5.2 L (6.3-8.2) g/dL Albumin 2.8 L (3.5-5.0) g/dL 12/27/23 12/27/23 12/27/23 Range/Units 16:40 19:34 22:30 WBC (3.8-10.6) k/uL RBC (3.80-5.40) m/uL Hgb (11.4-16.0) gm/dL Hct (34.0-46.0) % Neutrophils # (1.3-7.7) k/uL Sodium (137-145) mmol/L Glucose (74-99) mg/dL POC Glucose (mg/dL) 159 H 158 H 165 H (70-110) mg/dL Calcium (8.4-10.2) mg/dL Total Protein (6.3-8.2) g/dL Albumin (3.5-5.0) g/dL 12/28/23 Range/Units 06:08 WBC (3.8-10.6) k/uL RBC (3.80-5.40) m/uL Hgb (11.4-16.0) gm/dL Hct (34.0-46.0) % Neutrophils # (1.3-7.7) k/uL Sodium (137-145) mmol/L Glucose (74-99) mg/dL POC Glucose (mg/dL) 122 H (70-110) mg/dL Calcium (8.4-10.2) mg/dL Total Protein (6.3-8.2) g/dL Albumin (3.5-5.0) g/dL Assessment and Plan Assessment: Herniated nucleus pulposus L4-5, degenerative scoliosis, asymmetric disc degeneration L4-5, lower extreme radiculopathy, status post surgical repair, with decompression and fusion on 12/23. Today postop day #3. Fever, postoperative. Mostly secondary to acute gastroenteritis versus pneumonia also suspected Postoperative ileus Constipation x 7 days. 3 times a day. Leukocytosis could be secondary to surgery reactive. Monitor for now. Patient had a chronic anemia. Diabetes mellitus Hyperlipidemia History of GERD History of fibromyalgia History of seizures History of osteoarthritis Plan: Continue with Flagyl and Levaquin Continue with normal saline Surgery team consult Continue with liquid diet orthopedic team primary care on the case gi prophylaxis on protoninx DVT prophylaxis SCDs, anticoagulation is deferred to surgery team Prognosis is guarded
--- NOTE | 2023-12-28 12:17 | P.DS ---
Providers Date of admission: 12/26/23 10:33 Expected date of discharge: 12/28/23 Attending physician: Bentley Blunt Consults: 12/25/23 08:40 Consult Physician Stat Consulting Provider: Zach Porter Reason/Comments: medical management Do you want consulting provider notified?: Yes 12/28/23 11:14 Consult Physician Urgent Consulting Provider: Fareed Barragan Reason/Comments: ileus Do you want consulting provider notified?: Yes Primary care physician: Zach Porter MD - Discharge Diagnosis(es) (1) Status post lumbar spinal fusion Current Visit: Yes Status: Acute (2) Low back pain Current Visit: Yes Status: Acute (3) Right leg weakness Current Visit: Yes Status: Acute (4) Radiculopathy with lower extremity symptoms Current Visit: Yes Status: Acute (5) Lumbar degenerative disc disease Current Visit: Yes Status: Acute (6) Degenerative scoliosis Current Visit: Yes Status: Acute (7) Lumbar spinal stenosis Current Visit: Yes Status: Acute (8) Diabetes mellitus Current Visit: Yes Status: Acute (9) Hypertension Current Visit: Yes Status: Acute (10) Obesity (BMI 30-39.9) Current Visit: Yes Status: Acute (11) Sleep apnea Current Visit: Yes Status: Acute (12) History of seizure disorder Current Visit: Yes Status: Acute (13) Herniated nucleus pulposus, L4-5 Current Visit: Yes Status: Acute Hospital Course: Patient is a pleasant 53-year-old female who presented with Degenerative scoliosis, L4-5 asymmetric degenerative disc disease, L4-5 herniated nucleus pulposus, Lower extremity radiculopathy, L4-5 spinal stenosis, and Low back pain who failed outpatient conservative therapy. She was admitted for a L4-5 minimally invasive posterior lateral decompression and fusion with transforaminal lumbar interbody fusion. The patient tolerated the procedure well and has been improving postoperatively. She does continue to have some weakness with right lower extremity which was present prior to surgical intervention. Initially she was planning for discharge to a rehabilitation facility but feels she has improved over the past 2 days and feels she would be ready for discharge home today. Condition on day of discharge stable. Patient will be discharged home. Patient was cleared preoperatively for surgery by Dr. Zach Porter. Patient did have an enema yesterday and has been able to have a bowel movement. Her abdomen is soft nontender. Patient currently denies any nausea, vomiting, fever, or chills. Patient is ea ting and voiding freely without difficulty. Patient may shower without Optifoam dressing intact. Patient should refrain from driving until at least after their first follow-up appointment in the office. Patient is to avoid excessive bending, twisting, lifting. No lifting greater than 10 pounds. MAPS has been reviewed today, 12/28/2023, with an Overall Overdose Risk Score of 360. An "Opiod Start Talking" Form has been signed and placed in the patient's chart. A prescription has been written for hydrocodone 7.5 mg / 325 mg, 1 tab, every 6 hours as needed for acute pain, dispense #28. She is also given prescription for Senokot-S, 1 tab, twice daily, as needed for constipation, dispense #60 and cyclobenzaprine 10 mg, 1 tab, 3 times daily, as needed for muscle spasm, dispense #60. Prescriptions are sent to [facility] pharmacy located on [address] [place] [address] [place] per request of the patient. Patient's other medical diagnoses include diabetes mellitus, hyperlipidemia, sleep apnea, and history of seizure disorder. Patient will need to be cleared by medicine prior to discharge home today. Patient also requires a walker. Prescription is written and signed to obtain a walker which the patient will receive today at the hospital prior to discharge home. She may utilize his walker to aid in ambulation as needed. Physical Exam on day of discharge: Patient is awake, alert, and oriented 3 Vital signs stable Good chest excursion with deep inspiration and expiration Abdomen soft nontender No signs or symptoms of DVT; no calf pain Extensor hallucis longus, plantarflexion, and dorsiflexion positive sustained bilateral lower extremities Incision sites are clean, dry, and intact; no erythema, purulence, or signs of infection Some bruising around the surgical sites of the lumbar spine and over the right iliac crest Optifoam dressings have been removed Patient Condition at Discharge: Stable Plan - Discharge Summary Discharge Rx Participant: Yes New Discharge Prescriptions: New Cyclobenzaprine [Flexeril] 10 mg PO TID PRN #60 tab PRN Reason: Muscle Spasm HYDROcodone/APAP 5-325MG [[place] 5] 1 each PO Q6HR PRN #28 tab PRN Reason: Pain Sennosides-Docusate Sodium [Senokot-S] 1 tab PO BID PRN #60 tablet PRN Reason: Constipation No Action Insulin Degludec [Tresiba Flextouch U-100 Pen] 50 unit SQ HS Dapagliflozin Propanediol [Farxiga] 10 mg PO DAILY Omeprazole [PriLOSEC] 40 mg PO HS Metoclopramide [Reglan] 5 mg PO AC-TID Pregabalin [Lyrica] 200 mg PO TID Denosumab [Prolia] 60 mg SQ Q181D HYDROcodone/APAP 7.5-325MG [[place] 7.5-325] 1 tab PO Q6HR PRN PRN Reason: Pain Glimepiride [Amaryl] 4 mg PO AC-BRKFST Atorvastatin [Lipitor] 10 mg PO HS Meloxicam [Mobic] 15 mg PO DAILY PRN PRN Reason: Pain L.acidoph,Paracasei, B.lactis [Probiotic] 1 each PO DAILY Sertraline [Zoloft] 100 mg PO BID Budesonide/Formoterol Fumarate [Symbicort 160-4.5 Mcg Inhaler] 1 puff INHALATION DAILY PRN PRN Reason: Shortness Of Breath Discharge Medication List Insulin Degludec [Tresiba Flextouch U-100 Pen] 50 unit SQ HS 05/11/18 [History] Dapagliflozin Propanediol [Farxiga] 10 mg PO DAILY 08/16/20 [History] Omeprazole [PriLOSEC] 40 mg PO HS 11/29/20 [History] Metoclopramide [Reglan] 5 mg PO AC-TID 03/09/21 [History] Atorvastatin [Lipitor] 10 mg PO HS 06/06/21 [History] L.acidoph,Paracasei, B.lactis [Probiotic] 1 each PO DAILY 06/06/21 [History] Meloxicam [Mobic] 15 mg PO DAILY PRN 06/06/21 [History] Pregabalin [Lyrica] 200 mg PO TID 08/27/21 [History] Denosumab [Prolia] 60 mg SQ Q181D 03/04/23 [History] Sertraline [Zoloft] 100 mg PO BID 03/04/23 [History] Budesonide/Formoterol Fumarate [Symbicort 160-4.5 Mcg Inhaler] 1 puff INHALATION DAILY PRN 12/22/23 [History] Glimepiride [Amaryl] 4 mg PO AC-BRKFST 12/22/23 [History] HYDROcodone/APAP 7.5-325MG [[place] 7.5-325] 1 tab PO Q6HR PRN 12/22/23 [History] Cyclobenzaprine [Flexeril] 10 mg PO TID PRN #60 tab 12/28/23 [Rx] HYDROcodone/APAP 5-325MG [[place] 5] 1 each PO Q6HR PRN #28 tab 12/28/23 [Rx] Sennosides-Docusate Sodium [Senokot-S] 1 tab PO BID PRN #60 tablet 12/28/23 [Rx] Follow up Appointment(s)/Referral(s): Bentley Blunt DO [Doctor of Osteopathic Medicine] - 01/06/24 1:00 pm Activity/Diet/Wound Care/Special Instructions: 1. Patient may shower without Optifoam dressing intact. 2. Patient is encouraged to use a walker to aid in ambulation as needed. 3. Patient should refrain from driving until at least after their first follow- up appointment in the office. 4. Patient should avoid excessive bending, twisting, lifting; avoid overhead lifting; no lifting greater than 10 pounds 5. Take medications as prescribed 6. Patient should avoid anti-inflammatory medications over the next 6 weeks postoperatively 7. Do not soak in tub Discharge Disposition: HOME SELF-CARE
--- NOTE | 2023-12-28 13:11 | P.GSCN ---
History of Present Illness Consult date: 12/28/23 Reason for Consult: Ileus History of present illness: 53-year-old female hospitalized after back surgery. We were consulted for mild abdominal pain and x-rays showing constipation. Patient did have bowel function yesterday after an enema was utilized. Denies bloating. Has had some intermittent nausea and vomiting but better lately. Tolerating diet currently. Only mild abdominal discomfort currently. Patient was started on full liquids today. Review of Systems The patient denies any acute changes in vision or hearing, no dysphagia or odynophagia, no chest pain or shortness of breath, no dysuria or hematuria, no headache, no runny nose, no rectal bleeding or melena, no unexplained weight loss Past Medical History Past Medical History: Diabetes Mellitus, Eye Disorder, Fibromyalgia, GERD/Reflux, Hyperlipidemia, Osteoarthritis (OA), Seizure Disorder, Sleep Apne a/CPAP/BIPAP Additional Past Medical History / Comment(s): LAST SEIZURE OVER 1 YEAR AGO. Degenerative disc disease, Osteoporosis. "PRE-CANCEROUS CELLS IN THROAT FROM GERD". Neuropathy, bilateral legs. Sleep Apnea resolved since weight loss. Recent aneurysms in eyes, had lasik surgery. History of Any Multi-Drug Resistant Organisms: None Reported Past Surgical History: Back Surgery, Bariatric Surgery, Cholecystectomy, Tonsi llectomy, Tubal Ligation Additional Past Surgical History / Comment(s): Gastric sleeve, hiatal hernia repair, cervical fusion, EGD, PAIN CLINIC PROCEDURES, lasik eye surgery, L4-L5 decompression Past Anesthesia/Blood Transfusion Reactions: Motion Sickness, Postoperative Nausea & Vomiting (PONV) Additional Past Anesthesia/Blood Transfusion Reaction / Comm: Has a hard time sometimes waking up with anesthesia. No hx blood transfusion. Past Psychological History: Bipolar, Depression Smoking Status: Current every day smoker Past Alcohol Use History: None Reported Additional Past Alcohol Use History / Comment(s): STARTED SMOKING IN 1983, currently smokes 7 cigarettes a day. Past Drug Use History: None Reported - Past Family History Mother Family Medical History: No Reported History Additional Family Medical History / Comment(s): DIVERTICULITIS. Father Family Medical History: Diabetes Mellitus Sister(s) Additional Family Medical History / Comment(s): Arthritis Medications and Allergies Home Medications Medication Instructions Recorded Confirmed Type Insulin Degludec [Tresiba 50 unit SQ HS 05/11/18 12/24/23 History Flextouch U-100 Pen] Dapagliflozin Propanediol [Farxiga] 10 mg PO DAILY 08/16/20 12/24/23 History Omeprazole [PriLOSEC] 40 mg PO HS 11/29/20 12/24/23 History Metoclopramide [Reglan] 5 mg PO AC-TID 03/09/21 12/24/23 History Atorvastatin [Lipitor] 10 mg PO HS 06/06/21 12/24/23 History L.acidoph,Paracasei, B.lactis 1 each PO DAILY 06/06/21 12/24/23 History [Probiotic] Meloxicam [Mobic] 15 mg PO DAILY PRN 06/06/21 12/24/23 History Pregabalin [Lyrica] 200 mg PO TID 08/27/21 12/24/23 History Denosumab [Prolia] 60 mg SQ Q181D 03/04/23 12/24/23 History Sertraline [Zoloft] 100 mg PO BID 03/04/23 12/24/23 History Budesonide/Formoterol Fumarate 1 puff INHALATION DAILY PRN 12/22/23 12/24/23 History [Symbicort 160-4.5 Mcg Inhaler] Glimepiride [Amaryl] 4 mg PO AC-BRKFST 12/22/23 12/24/23 History HYDROcodone/APAP 7.5-325MG [[place] 1 tab PO Q6HR PRN 12/22/23 12/24/23 History 7.5-325] Cyclobenzaprine [Flexeril] 10 mg PO TID PRN #60 tab 12/28/23 Rx HYDROcodone/APAP 5-325MG [[place] 5] 1 each PO Q6HR PRN #28 tab 12/28/23 Rx Sennosides-Docusate Sodium 1 tab PO BID PRN #60 tablet 12/28/23 Rx [Senokot-S] Allergies Allergy/AdvReac Type Severity Reaction Status Date / Time aspartame Allergy GLANDS AND Verified 12/24/23 09:34 THROAT SWELL UP carbamazepine [From Tegretol] Allergy Rash/Hives Verified 12/24/23 09:34 latex Allergy Rash/Hives/ Verified 12/24/23 09:34 swelling Surgical - Exam Vital Signs Temp Pulse Resp BP Pulse Ox 97.8 F 74 16 106/57 94 L 12/24/23 09:31 12/24/23 09:31 12/24/23 09:31 12/24/23 09:31 12/24/23 09:31 Physical exam: General: Well-developed, well-nourished HEENT: Normocephalic, sclerae nonicteric Abdomen: Minimal diffuse tenderness, nondistended Extremities: No edema Neuro: Alert and oriented Results - Labs 12/27/23 11:54 12/27/23 11:54 Abnormal Lab Results - Last 24 Hours (Table) 12/27/23 12/27/23 12/27/23 Range/Units 11:54 11:54 16:40 WBC 12.9 H (3.8-10.6) k/uL RBC 3.28 L (3.80-5.40) m/uL Hgb 9.3 L (11.4-16.0) gm/dL Hct 29.2 L (34.0-46.0) % Neutrophils # 9.8 H (1.3-7.7) k/uL Sodium 135 L (137-145) mmol/L Glucose 146 H (74-99) mg/dL POC Glucose (mg/dL) 159 H (70-110) mg/dL Calcium 8.0 L (8.4-10.2) mg/dL Total Protein 5.2 L (6.3-8.2) g/dL Albumin 2.8 L (3.5-5.0) g/dL 12/27/23 12/27/23 12/28/23 Range/Units 19:34 22:30 06:08 WBC (3.8-10.6) k/uL RBC (3.80-5.40) m/uL Hgb (11.4-16.0) gm/dL Hct (34.0-46.0) % Neutrophils # (1.3-7.7) k/uL Sodium (137-145) mmol/L Glucose (74-99) mg/dL POC Glucose (mg/dL) 158 H 165 H 122 H (70-110) mg/dL Calcium (8.4-10.2) mg/dL Total Protein (6.3-8.2) g/dL Albumin (3.5-5.0) g/dL 12/28/23 Range/Units 11:34 WBC (3.8-10.6) k/uL RBC (3.80-5.40) m/uL Hgb (11.4-16.0) gm/dL Hct (34.0-46.0) % Neutrophils # (1.3-7.7) k/uL Sodium (137-145) mmol/L Glucose (74-99) mg/dL POC Glucose (mg/dL) 69 L (70-110) mg/dL Calcium (8.4-10.2) mg/dL Total Protein (6.3-8.2) g/dL Albumin (3.5-5.0) g/dL Diabetes panel 12/27/23 Range/Units 11:54 Sodium 135 L (137-145) mmol/L Potassium 3.8 (3.5-5.1) mmol/L Chloride 104 (98-107) mmol/L Carbon Dioxide 25 (22-30) mmol/L BUN 13 (7-17) mg/dL Creatinine 0.63 (0.52-1.04) mg/dL Glucose 146 H (74-99) mg/dL Calcium 8.0 L (8.4-10.2) mg/dL AST 27 (14-36) U/L ALT 11 (4-34) U/L Alkaline Phosphatase 78 (38-126) U/L Total Protein 5.2 L (6.3-8.2) g/dL Albumin 2.8 L (3.5-5.0) g/dL Calcium panel 12/27/23 Range/Units 11:54 Calcium 8.0 L (8.4-10.2) mg/dL Albumin 2.8 L (3.5-5.0) g/dL Pituitary panel 12/27/23 Range/Units 11:54 Sodium 135 L (137-145) mmol/L Potassium 3.8 (3.5-5.1) mmol/L Chloride 104 (98-107) mmol/L Carbon Dioxide 25 (22-30) mmol/L BUN 13 (7-17) mg/dL Creatinine 0.63 (0.52-1.04) mg/dL Glucose 146 H (74-99) mg/dL Calcium 8.0 L (8.4-10.2) mg/dL Adrenal panel 12/27/23 Range/Units 11:54 Sodium 135 L (137-145) mmol/L Potassium 3.8 (3.5-5.1) mmol/L Chloride 104 (98-107) mmol/L Carbon Dioxide 25 (22-30) mmol/L BUN 13 (7-17) mg/dL Creatinine 0.63 (0.52-1.04) mg/dL Glucose 146 H (74-99) mg/dL Calcium 8.0 L (8.4-10.2) mg/dL Total Bilirubin 0.6 (0.2-1.3) mg/dL AST 27 (14-36) U/L ALT 11 (4-34) U/L Alkaline Phosphatase 78 (38-126) U/L Total Protein 5.2 L (6.3-8.2) g/dL Albumin 2.8 L (3.5-5.0) g/dL Assessment and Plan (1) Ileus Narrative/Plan: 53-year-old female with ileus after recent back surgery. Patient on antibiotics after recent postoperative fevers identified. X-rays reviewed and show right- sided constipation. Degree of bowel distention mild to medium degree. Add lactulose 3 times daily to current bowel regimen. Continue full liquids. Recheck films tomorrow. Current Visit: Yes Status: Acute Code(s): K56.7 - ILEUS, UNSPECIFIED SNOMED Code(s): 528802658
[2023-12-28 16:28] LABS: Glucose,Whole Blood 139 mg/dL (70-110)
[2023-12-28] MEDS: LACTULOSE 20 GM/30 ML CUP PO SCH (16:44)
[2023-12-28] MEDS: ONDANSETRON 4 MG/2 ML VIAL IVP PRN (16:44)
[2023-12-28 18:47] LABS: Appearance,Urine Clear (Clear); Bilirubin,Urine Negative (Negative); Blood,Urine Negative (Negative); Color,Urine Light Yellow; Glucose,Urine (UA) 4+ (Negative); Ketones,Urine Negative (Negative); Leukocyte Esterase,Urine Negative (Negative); Nitrite,Urine Negative (Negative); PH, Urine 6.5 (5.0-8.0); Protein,Urine Negative (Negative); Specific Gravity,Urine 1.011 (1.001-1.035); Urobilinogen,Urine <2.0 mg/dL (<2.0)
[2023-12-28 20:45] LABS: Glucose,Whole Blood 154 mg/dL (70-110)
[2023-12-29 02:41] LABS: Glucose,Whole Blood 58 mg/dL (70-110)
[2023-12-29] MEDS: DEXTROSE 50% SYRINGE 50 ML IVP PRN (02:47)
[2023-12-29 03:03] LABS: Glucose,Whole Blood 128 mg/dL (70-110)
[2023-12-29 06:18] LABS: Glucose,Whole Blood 56 mg/dL (70-110)
[2023-12-29 06:48] LABS: Glucose,Whole Blood 132 mg/dL (70-110)
[2023-12-29] MEDS: GLIMEPIRIDE 1 MG TAB PO SCH (07:11)
--- NOTE | 2023-12-29 08:29 | P.DS ---
Providers Date of admission: 12/26/23 10:33 Expected date of discharge: 12/29/23 Attending physician: Bentley Blunt Consults: 12/25/23 08:40 Consult Physician Stat Consulting Provider: Zach Porter Reason/Comments: medical management Do you want consulting provider notified?: Yes 12/28/23 11:14 Consult Physician Urgent Consulting Provider: Fareed Barragan Reason/Comments: ileus Do you want consulting provider notified?: Yes Primary care physician: Zcah Porter MD - Discharge Diagnosis(es) (1) Status post lumbar spinal fusion Current Visit: Yes Status: Acute (2) Low back pain Current Visit: Yes Status: Acute (3) Right leg weakness Current Visit: Yes Status: Acute (4) Radiculopathy with lower extremity symptoms Current Visit: Yes Status: Acute (5) Lumbar degenerative disc disease Current Visit: Yes Status: Acute (6) Degenerative scoliosis Current Visit: Yes Status: Acute (7) Lumbar spinal stenosis Current Visit: Yes Status: Acute (8) Diabetes mellitus Current Visit: Yes Status: Acute (9) Hypertension Current Visit: Yes Status: Acute (10) Obesity (BMI 30-39.9) Current Visit: Yes Status: Acute (11) Sleep apnea Current Visit: Yes Status: Acute (12) History of seizure disorder Current Visit: Yes Status: Acute (13) Herniated nucleus pulposus, L4-5 Current Visit: Yes Status: Acute Hospital Course: Patient is a pleasant 53-year-old female who presented with Degenerative scoliosis, L4-5 asymmetric degenerative disc disease, L4-5 herniated nucleus pulposus, Lower extremity radiculopathy, L4-5 spinal stenosis, and Low back pain who failed outpatient conservative therapy. She was admitted for a L4-5 minimally invasive posterior lateral decompression and fusion with transforaminal lumbar interbody fusion. The patient tolerated the procedure well and has been improving postoperatively. She does continue to have some weakness with right lower extremity which was present prior to surgical intervention. Initially she was planning for discharge to a rehabilitation facility but feels she has improved over the past 3 days and feels she would be ready for discharge home today. Condition on day of discharge stable from an orthopedic spine standpoint. Patient will be discharged home. Patient was cleared preoperatively for surgery by Dr. Zach Porter. Yesterday patient's discharge was held due to some abdominal pain. X-ray imaging showed evidence of constipation. She was seen by general surgery. They had plan to continue with conservative treatment and add further medications to facilitate a bowel movement. Patient did have another bowel movement this morning. She is not currently complaining of abdominal pain at the bedside. She was not complaining of significant abdominal pain at the bedside yesterday and she did not have significant abdominal pain with palpation of her abdomen yesterday. She did have an enema yesterday and also had a bowel movement yesterday as well. She was not cleared by medicine for discharge yesterday. She is hoping to be cleared for discharge today. Nursing states she has had some difficulty this morning with hypoglycemia. Patient is currently on a liquid diet and will advance as recommended per general surgery's evaluation. They were planning for repeat imaging of the abdomen this morning. Patient currently denies any nausea, vomiting, fever, or chills. Patient is eating and voiding freely without difficulty. Patient may shower without Optifoam dressing intact. Patient should refrain from driving until at least after their first follow-up appointment in the office. Patient is to avoid excessive bending, twisting, lifting. No lifting greater than 10 pounds. MAPS has been reviewed t yesterday, 12/28/2023, with an Overall Overdose Risk Score of 360. An "Opiod Start Talking" Form has been signed and placed in the patient's chart. A prescription has been written for hydrocodone 7.5 mg / 325 mg, 1 tab, every 6 hours as needed for acute pain, dispense #28. She is also given prescription for Senokot-S, 1 tab, twice daily, as needed for constipation, dispense #60 and cyclobenzaprine 10 mg, 1 tab, 3 times daily, as needed for muscle spasm, dispense #60. Prescriptions are sent to [facility] pharmacy located on and per request of the patient. Patient's other medical diagnoses include diabetes mellitus, hyperlipidemia, sleep apnea, and history of seizure disorder. Patient will need to be cleared by medicine and general surgery prior to discharge home today. Patient also requires a walker. Prescription is written and signed to obtain a walker which the patient will receive today at the hospital prior to discharge home. She may utilize his walker to aid in ambulation as needed. Physical Exam on day of discharge: Patient is awake, alert, and oriented 3 Vital signs stable Good chest excursion with deep inspiration and expiration Abdomen soft nontender No signs or symptoms of DVT; no calf pain Extensor hallucis longus, plantarflexion, and dorsiflexion positive sustained bilateral lower extremities Incision sites are clean, dry, and intact; no erythema, purulence, or signs of infection Some bruising around the surgical sites of the lumbar spine and over the right iliac crest Optifoam dressings have been removed Procedures: L4-5 minimally invasive posterior lateral decompression and fusion with transforaminal lumbar interbody fusion Patient Condition at Discharge: Stable Plan - Discharge Summary Discharge Rx Participant: Yes New Discharge Prescriptions: New Cyclobenzaprine [Flexeril] 10 mg PO TID PRN #60 tab PRN Reason: Muscle Spasm HYDROcodone/APAP 5-325MG [[place] 5] 1 each PO Q6HR PRN #28 tab PRN Reason: Pain Sennosides-Docusate Sodium [Senokot-S] 1 tab PO BID PRN #60 tablet PRN Reason: Constipation No Action Insulin Degludec [Tresiba Flextouch U-100 Pen] 50 unit SQ HS Dapagliflozin Propanediol [Farxiga] 10 mg PO DAILY Omeprazole [PriLOSEC] 40 mg PO HS Metoclopramide [Reglan] 5 mg PO AC-TID Pregabalin [Lyrica] 200 mg PO TID Denosumab [Prolia] 60 mg SQ Q181D HYDROcodone/APAP 7.5-325MG [[place] 7.5-325] 1 tab PO Q6HR PRN PRN Reason: Pain Glimepiride [Amaryl] 4 mg PO AC-BRKFST Atorvastatin [Lipitor] 10 mg PO HS Meloxicam [Mobic] 15 mg PO DAILY PRN PRN Reason: Pain L.acidoph,Paracasei, B.lactis [Probiotic] 1 each PO DAILY Sertraline [Zoloft] 100 mg PO BID Budesonide/Formoterol Fumarate [Symbicort 160-4.5 Mcg Inhaler] 1 puff INHALATION DAILY PRN PRN Reason: Shortness Of Breath Discharge Medication List Insulin Degludec [Tresiba Flextouch U-100 Pen] 50 unit SQ HS 05/11/18 [History] Dapagliflozin Propanediol [Farxiga] 10 mg PO DAILY 08/16/20 [History] Omeprazole [PriLOSEC] 40 mg PO HS 11/29/20 [History] Metoclopramide [Reglan] 5 mg PO AC-TID 03/09/21 [History] Atorvastatin [Lipitor] 10 mg PO HS 06/06/21 [History] L.acidoph,Paracasei, B.lactis [Probiotic] 1 each PO DAILY 06/06/21 [History] Meloxicam [Mobic] 15 mg PO DAILY PRN 06/06/21 [History] Pregabalin [Lyrica] 200 mg PO TID 08/27/21 [History] Denosumab [Prolia] 60 mg SQ Q181D 03/04/23 [History] Sertraline [Zoloft] 100 mg PO BID 03/04/23 [History] Budesonide/Formoterol Fumarate [Symbicort 160-4.5 Mcg Inhaler] 1 puff INHALATION DAILY PRN 12/22/23 [History] Glimepiride [Amaryl] 4 mg PO AC-BRKFST 12/22/23 [History] HYDROcodone/APAP 7.5-325MG [[place] 7.5-325] 1 tab PO Q6HR PRN 12/22/23 [History] Cyclobenzaprine [Flexeril] 10 mg PO TID PRN #60 tab 12/28/23 [Rx] HYDROcodone/APAP 5-325MG [[place] 5] 1 each PO Q6HR PRN #28 tab 12/28/23 [Rx] Sennosides-Docusate Sodium [Senokot-S] 1 tab PO BID PRN #60 tablet 12/28/23 [Rx] Follow up Appointment(s)/Referral(s): Bentley Blunt DO [Doctor of Osteopathic Medicine] - 01/06/24 1:00 pm Activity/Diet/Wound Care/Special Instructions: 1. Patient may shower without Optifoam dressing intact. 2. Patient is encouraged to use a walker to aid in ambulation as needed. 3. Patient should refrain from driving until at least after their first follow- up appointment in the office. 4. Patient should avoid excessive bending, twisting, lifting; avoid overhead lifting; no lifting greater than 10 pounds 5. Take medications as prescribed 6. Patient should avoid anti-inflammatory medications over the next 6 weeks postoperatively 7. Do not soak in tub Discharge Disposition: HOME SELF-CARE
[2023-12-29 08:49] VITALS: BP 108/65; RESP 19; TEMP 98.7
--- NOTE | 2023-12-29 08:58 | XR ---
EXAMINATION TYPE: XR abdomen 2V DATE OF EXAM: 12/29/2023 6:39 AM CLINICAL INDICATION:Female, 53 years old with history of ileus; [facility] COMPARISON: 12/28/2023 TECHNIQUE: Two views of the abdomen were obtained. FINDINGS: Fixation hardware in the lower spine L4-L5 with discectomy present. Upper abdominal surgica l clips including cholecystectomy clips. Hardware appears intact. Gaseous distention of colon. The constance wel gas pattern is otherwise nonspecific without dilated loops of small or large bowel. There is no e vidence for organomegaly or pneumoperitoneum. The osseous structures are intact. No abnormal calcif ications are present. Fecal material and gas are demonstrated throughout the colon and rectum. IMPRESSION: Gaseous distention of colon no evidence for bowel obstruction.
--- NOTE | 2023-12-29 09:54 | P.PN ---
Subjective Progress Note Date: 12/29/23 - Chief Complaint Herniated nucleus pulposus L4-5, degenerative scoliosis - History of Present Illness 12/25/2023 This is a 53-year-old female admitted with reported Herniated nucleus pulposus L4-5, degenerative scoliosis, asymmetric disc degeneration L4-5, lower extreme radiculopathy, status post surgical repair, postop day #1. Reports positive pain, receiving IV push pain medication as well as oral and extremely sleepy. Arousable and opens eyes to answer assessment questions. Denies chest pain, palpitations or shortness of breath. Maintaining O2 sats in the 90s on 2 L nasal cannula. Afebrile, Tmax 99.5, WBC 14.85, hemoglobin 10.6, platelets 311. Hemoglobin A1c 7.3. Hypoglycemic earlier, currently controlled. Passing flatus. 12/29/2023 complains of right hip pain -right hip with significant bruising. Denies numbness tingling. Denies chest pain, palpitations or shortness of breath. Afebrile, Tmax 100 ,WBC 10.97. Complained of constipation over the weekend, radiology studies reviewed by general surgery .Received Lactulose, positive bowel movement earlier this morning. Passing flatus. Tolerating diet with no nausea vomiting or diarrhea. Isolated hypoglycemic episode, corrected currently 132. Denies chest pain, palpitations or shortness of breath. Maintaining O2 sats in the mid 90s on room air. Hemoglobin 9, platelets 329. Renal function stable. Objective - Vital Signs Vital signs: Vital Signs Temp 98.7 F 12/29/23 07:41 Pulse 88 12/29/23 08:01 Resp 19 12/29/23 07:41 BP 108/65 12/29/23 07:41 Pulse Ox 95 12/29/23 07:41 FiO2 21 12/27/23 09:27 Intake & Output 12/28/23 12/29/23 12/29/23 18:59 06:59 18:59 Output Total 2 Balance -2 Output: Urine 2 Other: # Voids 4 # Bowel Movements 1 - Exam PHYSICAL EXAM: VITAL SIGNS: [As above] GENERAL: Alert and oriented x 3, sitting up in bed, no acute distress HEENT: Normal cephalic conjunctivae normal. eyes normal. MMM. NECK: Supple, no JVD. CARDIOVASCULAR: S1, S2 regular.. No murmur RESPIRATION: Unlabored, equal air entry, essentially clear with bilateral bases diminished . ABDOMEN: Soft, nontender . No guarding. no masses palpable. Bowel sounds heard. Right hip bruising, tender. Surgical wound well-approximated, no drainage. LEGS: No edema. no swelling NERVOUS SYSTEM: Cranial nerves II through XII grossly intact. Skin: Warm and dry, no rash - Labs CBC & Chem 7: 12/29/23 06:19 12/29/23 06:19 Labs: Abnormal Lab Results - Last 24 Hours (Table) 12/28/23 12/28/23 12/28/23 Range/Units 11:34 16:27 18:20 POC Glucose (mg/dL) 69 L 139 H (70-110) mg/dL Urine Glucose (UA) 4+ H (Negative) 12/28/23 12/29/23 12/29/23 Range/Units 20:44 02:40 03:02 POC Glucose (mg/dL) 154 H 58 L 128 H (70-110) mg/dL Urine Glucose (UA) (Negative) 12/29/23 12/29/23 Range/Units 06:17 06:47 POC Glucose (mg/dL) 56 L 132 H (70-110) mg/dL Urine Glucose (UA) (Negative) Assessment and Plan Assessment: status post minimally invasive decompression and fusion for her disc herniation with spinal stenosis and asymmetric degenerative disc with degenerative scoliosis, postop day #1 Atelectasis postoperative, expected outcome Postoperative ileus Diabetes mellitus, hemoglobin A1c 7.3 Nicotine dependence Plan: Continue on current medication regimen ,monitoring and symptomatic treatment. Discharge planning in progress as per orthopedic surgery .medically cleared for discharge. Pain management /DVT prophylaxis as per orthopedic surgery. Smoking cessation reinforced. Follow-up with PCP in 1 week. The impression and plan of care has been dictated as directed. : I performed a history and examination of this patient, discussed the same with the dictator. I agree with the dictator's note ,documented as a scribe. Any additional findings or plans will be noted.
[2023-12-29] MEDS: DEXTROSE 5% IN WATER 1,000 ML IV ONE (10:33)
[2023-12-29 11:01] LABS: Basophils # (A) 0.06 X 10*3/uL (0.00-0.10); Basophils % (A) 0.5 %; Eosinophils # (A) 0.68 X 10*3/uL (0.04-0.35); Eosinophils % (A) 6.2 %; HCT 28.3 % (37.2-46.3); Lymphocytes # (A) 2.32 X 10*3/uL (0.90-5.00); Lymphocytes % (A) 21.1 %; MCH 28.2 pg (27.0-32.0); MCHC 31.8 g/dL (32.0-37.0); MCV 88.7 FL (80.0-97.0); Mean Platelet Volume 10.5 FL (9.5-12.2); Monocytes # (A) 0.87 X 10*3/uL (0.20-1.00); Monocytes % (A) 7.9 %; NRBC Per 100 WBC 0 X 10*3/uL (0.00-0.01); Neutrophils # (A) 6.87 X 10*3/uL (1.80-7.70); Neutrophils % (A) 62.8 %; Platelet Count 329 X 10*3/uL (140-440); RBC 3.19 X 10*6/uL (4.10-5.20); RDW 14.8 % (11.5-14.5); WBC 10.97 X 10*3/uL (4.50-10.00)
[2023-12-29 11:15] LABS: Blood Urea Nitrogen 11.2 mg/dL (9.0-27.0); Calcium 8.7 mg/dL (8.7-10.3); Carbon Dioxide 25.3 mmol/L (21.6-31.8); Chloride 104 mmol/L (96-109); Glucose 47 mg/dL (70-110); Potassium 4.7 mmol/L (3.5-5.5); Sodium 140 mmol/L (135-145)
[2023-12-29 11:46] VITALS: PULSE 84
--- NOTE | 2023-12-29 11:58 | P.PN ---
Subjective Progress Note Date: 12/29/23 CHIEF COMPLAINT: Ileus HISTORY OF PRESENT ILLNESS: This patient with recent back surgery. Surgical service following regards to ileus. Patient denies any abdominal pain. She is having bowel movements after lactulose given. Had a large bowel movement this morning. She is having flatus. Denies any nausea or vomiting. She is asking for advancement of diet and she wants to be discharged home. Abdominal x-ray reports gaseous distention of colon. No evidence for bowel obstruction. Afebrile over 24 hours. WBC 10.97 Hgb 9.0 platelets 329. Low blood sugar corrected. PHYSICAL EXAM: VITAL SIGNS: Reviewed. GENERAL: Well-developed in no acute distress. ABDOMEN: Soft. Nondistended. Nontender. NEUROLOGIC: Alert and oriented. Cranial nerves II through XII grossly intact. ASSESSMENT: 1. Ileus after recent back surgery PLAN: -Advance diet to regular -Patient can be discharged from surgical standpoint -Continue a bowel regimen at discharge Physician Pack Out Operator note has been reviewed by physician. Signing provider agrees with the documented findings, assessment, and plan of care. Objective - Vital Signs Vital signs: Vital Signs Temp 98.7 F 12/29/23 07:41 Pulse 84 12/29/23 11:33 Resp 19 12/29/23 07:41 BP 108/65 12/29/23 07:41 Pulse Ox 95 12/29/23 07:41 FiO2 21 12/27/23 09:27 Intake & Output 12/28/23 12/29/23 12/29/23 18:59 06:59 18:59 Output Total 2 Balance -2 Output: Urine 2 Other: # Voids 4 # Bowel Movements 1 - Labs CBC & Chem 7: 12/29/23 06:19 12/29/23 06:19 Labs: Abnormal Lab Results - Last 24 Hours (Table) 12/28/23 12/28/23 12/28/23 Range/Units 16:27 18:20 20:44 WBC (4.50-10.00) X 10*3/uL RBC (4.10-5.20) X 10*6/uL Hgb (12.0-15.0) g/dL Hct (37.2-46.3) % MCHC (32.0-37.0) g/dL RDW (11.5-14.5) % Immature Gran # (0.00-0.04) X 10*3/uL Eosinophils # (0.04-0.35) X 10*3/uL Glucose (70-110) mg/dL POC Glucose (mg/dL) 139 H 154 H (70-110) mg/dL Urine Glucose (UA) 4+ H (Negative) 12/29/23 12/29/23 12/29/23 Range/Units 02:40 03:02 06:17 WBC (4.50-10.00) X 10*3/uL RBC (4.10-5.20) X 10*6/uL Hgb (12.0-15.0) g/dL Hct (37.2-46.3) % MCHC (32.0-37.0) g/dL RDW (11.5-14.5) % Immature Gran # (0.00-0.04) X 10*3/uL Eosinophils # (0.04-0.35) X 10*3/uL Glucose (70-110) mg/dL POC Glucose (mg/dL) 58 L 128 H 56 L (70-110) mg/dL Urine Glucose (UA) (Negative) 12/29/23 12/29/23 12/29/23 Range/Units 06:19 06:19 06:47 WBC 10.97 H (4.50-10.00) X 10*3/uL RBC 3.19 L (4.10-5.20) X 10*6/uL Hgb 9.0 L (12.0-15.0) g/dL Hct 28.3 L (37.2-46.3) % MCHC 31.8 L (32.0-37.0) g/dL RDW 14.8 H (11.5-14.5) % Immature Gran # 0.17 H (0.00-0.04) X 10*3/uL Eosinophils # 0.68 H (0.04-0.35) X 10*3/uL Glucose 47 A* (70-110) mg/dL POC Glucose (mg/dL) 132 H (70-110) mg/dL Urine Glucose (UA) (Negative)
[2023-12-29] MEDS ORDERED: INSULIN DETEMIR (LEVEMIR) 100 UNIT/ML SYR SQ SCH (21:00)
== END 2023-12-29 11:59 | disposition home or self-care (01) | DRG 454 ==
LOC: OR 08:58 → 4SSUR 15:36 → OR 12-26 10:33 → 4SSUR 12-26 10:33
PROVIDERS: ADMIT Orthopaedic Surgery Orthopaedic Surgery of the Spine; ATTEND Orthopaedic Surgery Orthopaedic Surgery of the Spine
PROC: 0SG00AJ Fusion of Lumbar Vertebral Joint with Interbody Fusion Device, Posterior Approach, Anterior Column, Open Approach (ICD-10-PCS; 2023-12-24)
PROC: 0ST20ZZ Resection of Lumbar Vertebral Disc, Open Approach (ICD-10-PCS; 2023-12-24)
PROC: 01NB0ZZ Release Lumbar Nerve, Open Approach (ICD-10-PCS; 2023-12-24)
PROC: 0SG0071 Fusion of Lumbar Vertebral Joint with Autologous Tissue Substitute, Posterior Approach, Posterior Column, Open Approach (ICD-10-PCS; principal; 2023-12-24 10:05)
DX: M51.16 Intervertebral disc disorders with radiculopathy, lumbar region (principal); K56.7 Ileus, unspecified; M41.56 Other secondary scoliosis, lumbar region; G47.33 Obstructive sleep apnea (adult) (pediatric); E11.42 Type 2 diabetes mellitus with diabetic polyneuropathy; E66.9 Obesity, unspecified; D64.9 Anemia, unspecified; E78.5 Hyperlipidemia, unspecified; M48.061 Spinal stenosis, lumbar region without neurogenic claudication; F32.A Depression, unspecified; G47.30 Sleep apnea, unspecified; K21.9 Gastro-esophageal reflux disease without esophagitis; M79.7 Fibromyalgia; M81.0 Age-related osteoporosis without current pathological fracture; G40.909 Epilepsy, unspecified, not intractable, without status epilepticus; I10 Essential (primary) hypertension; E11.649 Type 2 diabetes mellitus with hypoglycemia without coma; M47.26 Other spondylosis with radiculopathy, lumbar region; F17.200 Nicotine dependence, unspecified, uncomplicated; Z79.51 Long term (current) use of inhaled steroids; Z79.891 Long term (current) use of opiate analgesic; Z79.899 Other long term (current) drug therapy; W19.XXXA Unspecified fall, initial encounter; Z79.1 Long term (current) use of non-steroidal anti-inflammatories (NSAID); Z79.4 Long term (current) use of insulin; Z79.84 Long term (current) use of oral hypoglycemic drugs
CPT/HCPCS: 71046; 72100; 73502; 74018; 74019; 80048; 80076; 81003; 83036; 83735; 85025; 94640; 94760